=== PATIENT | male | born 1950 | race Caucasian/White ===

== ENCOUNTER → 2016-07-01 | Outpatient (CLI) | payer OTHER ==
--- NOTE | 2016-07-01 12:00 | XR ---
EXAMINATION TYPE: XR chest 2V DATE OF EXAM: 07/01/2016 11:50 AM COMPARISON: 01/13/2015 HISTORY: Shortness of breath FINDINGS: The lungs are clear and there is no pneumothorax, pleural effusion, or focal pneumonia. Degenerative changes spine noted with evidence of cardiomegaly. Cardiac device seen in there is apical pleural th ickening. Hyperinflation suggests COPD. IMPRESSION: 1. No acute process. 2. Cardiomegaly and COPD
== END | disposition home or self-care (01) ==
LOC: RADXRMAIN 11:17
PROVIDERS: ATTEND Internal Medicine
DX: J44.9 Chronic obstructive pulmonary disease, unspecified (principal); I51.7 Cardiomegaly
CPT/HCPCS: 71020

== ENCOUNTER → 2017-01-06 | Outpatient (CLI) | payer OTHER ==
[2017-01-06 07:12] LABS: Blood Urea Nitrogen 19 mg/dL (9-20); Non-African American GFR(MDRD) >60 (>60 ml/min/1.73 sqM)
--- NOTE | 2017-01-06 08:36 | CT ---
EXAMINATION TYPE: CT brain wo/w con DATE OF EXAM: 01/06/2017 COMPARISON: 07/03/2009 HISTORY: 66-year-old male chronic tension headache, non intractable TECHNIQUE: Examination was done in axial plane before and after administration of 100 mm Omnipaque 3 00 intravenous contrast. Coronal and sagittal reconstructions performed. CT DLP: 2792.76 mGycm Automated exposure control for dose reduction was used. FINDINGS: Mild calvarial streak and beam hardening artifacts. Within this limitation, there is no evidence of acute intracranial hemorrhage, acute ischemic changes, mass, mass-effect, or extra-axial fluid collec tion. There is no effacement of cerebral sulci or basal subarachnoid cisterns. There is no hydrocep halus. There is no midline shift. Torres-white matter distinction is preserved. Small punctate calcification in the region of the foramen of [place]rose could represent choroid plexus ca lcification and is stable from 07/03/2009. Partially empty sella. No abnormal intracranial enhancing lesions. The dural venous sinuses are patent. Prior sinus with medial maxillary antrectomies. Mild mucosal thickening within the right maxillary si nus and a small polyp/mucosal retention cyst along the floor of the left maxillary sinus. Mild mucosa l thickening left frontal sinus. Globes are intact. IMPRESSION: 1. No acute intracranial abnormality seen. 2. No abnormal intracranial enhancing lesions.
== END | disposition home or self-care (01) ==
LOC: RADCTMAIN 06:35
PROVIDERS: ATTEND Psychiatry & Neurology Neurology
DX: G44.229 Chronic tension-type headache, not intractable (principal); Z13.89 Encounter for screening for other disorder
CPT/HCPCS: 82565; 84520; 70470; Q9967

== ENCOUNTER 2017-03-05 23:29 | Emergency (ER) | payer OTHER ==
[2017-03-05] MEDS ORDERED: MORPHINE SULFATE 4 MG/ML SYRINGE IV STA (23:59)
[2017-03-05] MEDS ORDERED: RX INFO: IV CONTRAST WAS GIVEN 1 EACH MISC MISCELLANE PRN (23:59)
[2017-03-05] MEDS ORDERED: ONDANSETRON 4 MG/2 ML VIAL IVP STA (23:59)
[2017-03-05] MEDS ORDERED: SODIUM CHLORIDE 0.9% 1,000 ML IV STA (23:59)
[2017-03-05] MEDS ORDERED: SODIUM CHLORIDE 0.9% 2,000 ML IV STA (23:59)
--- NOTE | 2017-03-06 00:08 | ED ---
Abdominal Pain HPI - General Chief Complaint: Abdominal Pain Stated Complaint: Abdominal Pain Time Seen by Provider: 03/05/17 23:48 Source: patient, RN notes reviewed, old records reviewed Mode of arrival: wheelchair Limitations: no limitations - History of Present Illness Initial Comments: This is a 66-year-old male presents to emergency Department chief complaint of increased abdominal pain for the past week, patient reports mostly on the left side and occasionally will radiate towards his back. Patient reports seems to be across his entire abdomen. Patient states that he has a history of diverticulitis and feels like this may be similar. He reports that he is had no nausea or vomiting. He reports that over the past few days he's had a hard stools. Patient states that he has had chills and low-grade fever but nothing at this time. He has history of pacemaker. Denies any chest pain or shortness of breath. Surgical history includes appendectomy and cholecystectomy, bilateral hip arthroplasty. Patient denies any recent fever, chills, shortness of breath, chest pain, back pain, nausea vomiting, numbness or tingling, dysuria or hematuria, diarrhea, headaches or visual changes, or any other current symptoms - Related Data Home Medications Medication Instructions Recorded Confirmed Aspirin 81 mg PO DAILY 07/25/14 03/05/17 Citalopram Hydrobromide [CeleXA] 40 mg PO DAILY 07/25/14 03/05/17 Losartan [Cozaar] 50 mg PO BID 07/25/14 03/05/17 Fiber 3 tab-cap PO BID 01/16/15 03/05/17 Diltiazem Cd [Cardizem Cd] 240 mg PO BID 03/20/15 03/05/17 Previous Rx's Medication Instructions Recorded HYDROcodone/APAP 7.5-325MG [[place] 1 - 2 each PO Q6H PRN #90 tab 03/29/15 7.5-325] HYDROcodone/APAP 10-325MG [[place] 1 tab PO Q6H PRN #15 tab 03/06/17 10-325] Ondansetron Odt [Zofran Odt] 4 mg PO Q8HR PRN #15 tab 03/06/17 Allergies Allergy/AdvReac Type Severity Reaction Status Date / Time nickel Allergy Rash/Hives Verified 03/20/15 13:17 Review of Systems ROS Statement: Those systems with pertinent positive or pertinent negative responses have been documented in the HPI. ROS Other: All systems not noted in ROS Statement are negative. Past Medical History Past Medical History: Chest Pain / Angina, Hypertension, Osteoarthritis (OA), Prostate Disorder Additional Past Medical History / Comment(s): hypoglycemia (caused a seizure), BPH, PACEMAKER, KIDNEY STONES. History of Any Multi-Drug Resistant Organisms: None Reported Past Surgical History: Appendectomy, Cholecystectomy, Heart Catheterization, Joint Replacement, Pacemaker Additional Past Surgical History / Comment(s): rt hip replacement, KIDNEY STONES , 03-27-15 TOTAL LEFT HIP REPLACEMENT, colonoscopy few years ago that showed colonic polyps. Past Anesthesia/Blood Transfusion Reactions: No Reported Reaction Type of Cardiac Device: Permanent Pacemaker Device Placement Date:: 2013 Past Psychological History: Depression Smoking Status: Never smoker Past Alcohol Use History: Rare Past Drug Use History: Marijuana - Past Family History Sister(s) Family Medical History: Cancer (Patient has 2 sisters one of them had lymphoma) Additional Family Medical History / Comment(s): lymph nodes Mother Family Medical History: COPD, Hypertension (His mother is alive she is 85-year- old has history of hypertension COPD secondary to secondhand smoking.) Father Family Medical History: COPD (Father at age 78 from COPD as well as alcoholism) Brother(s) Family Medical History: No Reported History (Patient has 2 brothers no major medical problems) Daughter(s) Family Medical History: No Reported History (Patient has 2 daughters no major medical problems) Son(s) Family Medical History: No Reported History (Patient has one son no major medical problems) General Exam - General Exam Comments Initial Comments: Pleasant 66-year-old male. No distress. Limitations: no limitations General appearance: alert, in no apparent distress Head exam: Present: atraumatic, normocephalic, normal inspection Eye exam: Present: normal appearance, PERRL, EOMI. Absent: scleral icterus, conjunctival injection, periorbital swelling ENT exam: Present: normal exam, mucous membranes moist Neck exam: Present: normal inspection. Absent: tenderness, meningismus, lymphadenopathy Respiratory exam: Present: normal lung sounds bilaterally. Absent: respiratory distress, wheezes, rales, rhonchi, stridor Cardiovascular Exam: Present: regular rate, normal rhythm, normal heart sounds. Absent: systolic murmur, diastolic murmur, rubs, gallop, clicks GI/Abdominal exam: Present: tenderness (left upper quadrant tenderness.), normal bowel sounds. Absent: distended, guarding, rebound, rigid Extremities exam: Present: normal inspection, full ROM, normal capillary refill. Absent: tenderness, pedal edema, joint swelling, calf tenderness Back exam: Present: normal inspection Neurological exam: Present: alert, oriented X3, CN II-XII intact Psychiatric exam: Present: normal affect, normal mood Skin exam: Present: warm, dry, intact, normal color. Absent: rash Course Vital Signs 03/05/17 03/06/17 03/06/17 23:33 00:49 01:56 Temperature 98.8 F Pulse Rate 50 L 48 L 45 L Respiratory 18 22 18 Rate Blood Pressure 180/79 163/83 175/80 O2 Sat by Pulse 100 100 98 Oximetry 03/06/17 03:12 Temperature 98.1 F Pulse Rate 46 L Respiratory 18 Rate Blood Pressure 192/82 O2 Sat by Pulse 96 Oximetry Medical Decision Making - Medical Decision Making 66-year-old male presents emergency department with one week of increased abdominal pain mainly over the left side. Patient reports that occasionally will radiate towards his back. At this time patient's lab work was reviewed and showed elevated lipase of 1030. Amylase was slightly elevated at 300. Stat patient's labwork was reviewed and negative for any significant abnormalities. Patient was given IV fluids and pain medicine. CT abdomen and pelvis was performed which shows some fatty infiltration around the pancreatic head. Also some incidental findings of hepatic cysts and slightly enlarged bilateral kidneys. Patient was informed of these results. Patient reports that he does not drink alcohol, and surgical history does include cholecystectomy. Patient was offered admission for pancreatitis, low for IV hydration and pain management. Patient reports that he would like to manage this at home. Discussed that he would need to have nausea medicine and pain medicine and clear liquid diet for the next few days. Patient reports that he feels anything gets worse he will return to the emergency department for further evaluation. Discussed close follow-up with primary care provider within the next few days. Patient agrees to treatment plan will comply. Return parameters were discussed. - Lab Data Result diagrams: 03/06/17 00:47 03/06/17 00:47 Lab Results 03/06/17 03/06/17 03/06/17 Range/Units 00:17 00:47 00:47 WBC 10.6 (3.8-10.6) k/uL RBC 4.33 (4.30-5.90) m/uL Hgb 13.7 (13.0-17.5) gm/dL Hct 41.0 (39.0-53.0) % MCV 94.8 (80.0-100.0) fL MCH 31.7 (25.0-35.0) pg MCHC 33.5 (31.0-37.0) g/dL RDW 12.5 (11.5-15.5) % Plt Count 298 (150-450) k/uL Neutrophils % 73 % Lymphocytes % 15 % Monocytes % 8 % Eosinophils % 2 % Basophils % 1 % Neutrophils # 7.7 (1.3-7.7) k/uL Lymphocytes # 1.5 (1.0-4.8) k/uL Monocytes # 0.9 (0-1.0) k/uL Eosinophils # 0.2 (0-0.7) k/uL Basophils # 0.1 (0-0.2) k/uL PT (9.0-12.0) sec INR (<1.2) APTT (22.0-30.0) sec Sodium 140 (137-145) mmol/L Potassium 4.1 (3.5-5.1) mmol/L Chloride 104 (98-107) mmol/L Carbon Dioxide 26 (22-30) mmol/L Anion Gap 10 mmol/L BUN 24 H (9-20) mg/dL Creatinine 0.80 (0.66-1.25) mg/dL Est GFR (MDRD) Af Amer >60 (>60 ml/min/1.73 sqM) Est GFR (MDRD) Non-Af >60 (>60 ml/min/1.73 sqM) Glucose 128 H (74-99) mg/dL Plasma Lactic Acid Donaldo (0.7-2.0) mmol/L Calcium 9.7 (8.4-10.2) mg/dL Total Bilirubin 0.5 (0.2-1.3) mg/dL AST 25 (17-59) U/L ALT 36 (21-72) U/L Alkaline Phosphatase 76 (38-126) U/L Total Protein 7.1 (6.3-8.2) g/dL Albumin 4.1 (3.5-5.0) g/dL Amylase 118 H (30-110) U/L Lipase 1093 H (23-300) U/L Urine Color Yellow Urine Appearance Clear (Clear) Urine pH 5.0 (5.0-8.0) Ur Specific [place] 1.021 (1.001-1.035) Urine Protein Negative (Negative) Urine Glucose (UA) Negative (Negative) Urine Ketones Negative (Negative) Urine Blood Negative (Negative) Urine Nitrite Negative (Negative) Urine Bilirubin Negative (Negative) Urine Urobilinogen <2.0 (<2.0) mg/dL Ur Leukocyte Esterase Negative (Negative) 03/06/17 03/06/17 Range/Units 00:47 00:47 WBC (3.8-10.6) k/uL RBC (4.30-5.90) m/uL Hgb (13.0-17.5) gm/dL Hct (39.0-53.0) % MCV (80.0-100.0) fL MCH (25.0-35.0) pg MCHC (31.0-37.0) g/dL RDW (11.5-15.5) % Plt Count (150-450) k/uL Neutrophils % % Lymphocytes % % Monocytes % % Eosinophils % % Basophils % % Neutrophils # (1.3-7.7) k/uL Lymphocytes # (1.0-4.8) k/uL Monocytes # (0-1.0) k/uL Eosinophils # (0-0.7) k/uL Basophils # (0-0.2) k/uL PT 11.0 (9.0-12.0) sec INR 1.1 (<1.2) APTT 23.8 (22.0-30.0) sec Sodium (137-145) mmol/L Potassium (3.5-5.1) mmol/L Chloride (98-107) mmol/L Carbon Dioxide (22-30) mmol/L Anion Gap mmol/L BUN (9-20) mg/dL Creatinine (0.66-1.25) mg/dL Est GFR (MDRD) Af Amer (>60 ml/min/1.73 sqM) Est GFR (MDRD) Non-Af (>60 ml/min/1.73 sqM) Glucose (74-99) mg/dL Plasma Lactic Acid Donaldo 1.6 (0.7-2.0) mmol/L Calcium (8.4-10.2) mg/dL Total Bilirubin (0.2-1.3) mg/dL AST (17-59) U/L ALT (21-72) U/L Alkaline Phosphatase (38-126) U/L Total Protein (6.3-8.2) g/dL Albumin (3.5-5.0) g/dL Amylase (30-110) U/L Lipase (23-300) U/L Urine Color Urine Appearance (Clear) Urine pH (5.0-8.0) Ur Specific [place] (1.001-1.035) Urine Protein (Negative) Urine Glucose (UA) (Negative) Urine Ketones (Negative) Urine Blood (Negative) Urine Nitrite (Negative) Urine Bilirubin (Negative) Urine Urobilinogen (<2.0) mg/dL Ur Leukocyte Esterase (Negative) - Radiology Data Radiology results: report reviewed Subtle. Pancreatic fat infiltration center around the pancreatic head correlating for acute pancreatitis. No significant necrosis or hemorrhage. Multiple hepatic hypodensities too small to characterize that are possibly represent cysts similar to prior study. Nodular significant adrenal gland seen bilaterally measuring 2 cm on the right recent metabolic. Overall there appears to be subtle increased fullness. Disposition Clinical Impression: Pancreatitis Disposition: HOME SELF-CARE Condition: Good Instructions: Pancreatitis (ED) Additional Instructions: Patient advised to take pain medicine and nausea medicine as prescribed. Follow -up with primary care provider within the next 1-2 days. Clear liquid diet for the next 24-48 hours, and slowly increasing her diet afterwards. Patient should return to the emergency department if any alarming signs or symptoms occur. Prescriptions: HYDROcodone/APAP 10-325MG [[place] 10-325] 1 tab PO Q6H PRN #15 tab PRN Reason: Pain Ondansetron Odt [Zofran Odt] 4 mg PO Q8HR PRN #15 tab PRN Reason: Nausea Referrals: Justice Nair MD [Primary Care Provider] - 1-2 days Time of Disposition: 02:41
[2017-03-06] MEDS ORDERED: MORPHINE SULFATE 2 MG/ML SYRINGE IVP ONE ×2 (00:15→00:16)
[2017-03-06 01:05] LABS: Appearance,Urine Clear (Clear); Bilirubin,Urine Negative (Negative); Glucose,Urine (UA) Negative (Negative); Ketones,Urine Negative (Negative); Leukocyte Esterase,Urine Negative (Negative); Nitrite,Urine Negative (Negative); Protein,Urine Negative (Negative); Specific Gravity,Urine 1.021 (1.001-1.035); UA Billing (MACRO vs. MICRO) CHEM; Urobilinogen,Urine <2.0 mg/dL (<2.0)
[2017-03-06 01:09] LABS: Basophils # (A) 0.1 k/uL (0-0.2); Basophils % (A) 1 %; CH 31.6; CHCM 33.5; Eosinophils # (A) 0.2 k/uL (0-0.7); Eosinophils % (A) 2 %; HDW 2.36; HGB 13.7 gm/dL (13.0-17.5); Luc # (Auto) 0.15; Luc % (Auto) 1; Lymphocytes # (A) 1.5 k/uL (1.0-4.8); Lymphocytes % (A) 15 %; MCH 31.7 pg (25.0-35.0); MCHC 33.5 g/dL (31.0-37.0); MCV 94.8 fL (80.0-100.0); Mean Platelet Volume 6.7; Monocytes # (A) 0.9 k/uL (0-1.0); Monocytes % (A) 8 %; Neutrophils # (A) 7.7 k/uL (1.3-7.7); Neutrophils % (A) 73 %; RBC 4.33 m/uL (4.30-5.90); RDW 12.5 % (11.5-15.5); WBC 10.6 k/uL (3.8-10.6); WBC (Perox) 10.51
[2017-03-06 01:20] LABS: INR 1.1 (<1.2); Partial Thromboplastin Time 23.8 sec (22.0-30.0)
[2017-03-06 01:23] LABS: ALT 36 U/L (21-72); AST 25 U/L (17-59); Alkaline Phosphatase 76 U/L (38-126); Amylase 118 U/L (30-110); Anion Gap 10 mmol/L; Blood Urea Nitrogen 24 mg/dL (9-20); Calcium 9.7 mg/dL (8.4-10.2); Carbon Dioxide 26 mmol/L (22-30); Chloride 104 mmol/L (98-107); Glucose 128 mg/dL (74-99); Non-African American GFR(MDRD) >60 (>60 ml/min/1.73 sqM); Potassium 4.1 mmol/L (3.5-5.1); Sodium 140 mmol/L (137-145); Total Bilirubin 0.5 mg/dL (0.2-1.3); Total Protein 7.1 g/dL (6.3-8.2)
[2017-03-06] MEDS ORDERED: HYDROmorphone 1 MG/ML 1 ML SYRINGE IVP STA ×2 (01:36→02:42)
[2017-03-06 01:59] VITALS: RESP 18
--- NOTE | 2017-03-06 02:18 | CT ---
EXAM: CT Abdomen and Pelvis With Intravenous Contrast CLINICAL HISTORY: Reason: abdominal pain TECHNIQUE: Axial computed tomography images of the abdomen and pelvis with intravenous contrast. CTDI is 22 mGy and DLP is 1169 mGy-cm. Axial delayed images were obtained. CTDI is 23.1 mGy and DLP is 618 mGy-cm. This CT exam was performed using one or more of the following dose reduction techniques: automated exposure control, adjustment of the mA and/or kV according to patient size, and/or use of iterative reconstruction technique. Coronal and sagittal reformatted images were created and reviewed. COMPARISON: CT 01/03/15 FINDINGS: Lower thorax: No acute findings. Pacing wires are seen. ABDOMEN: Liver: Multiple hepatic hypodensities, too small to characterize but possibly represent cysts similar to the prior study. Gallbladder and bile ducts: Cholecystectomy. No ductal dilation. Pancreas: Subtle peripancreatic fat infiltration centered around the pancreatic head, correlate for acute pancreatitis. No significant necrosis or hemorrhage. No ductal dilation. Spleen: Unremarkable. No splenomegaly. Adrenals: Nodular thickened adrenal glands seen bilaterally measuring up to 2 cm on the right and 3.7 cm on the left. Overall, there appears to be subtle increased fullness. Kidneys and ureters: Unremarkable. No solid mass. No hydronephrosis. Stomach and bowel: Unremarkable. No obstruction. No mucosal thickening. Appendix: The appendix is not well-visualized but no findings suggest acute appendicitis. PELVIS: Bladder: Unremarkable. No mass. Reproductive: Unremarkable as visualized. ABDOMEN and PELVIS: Intraperitoneal space: Unremarkable. No free air. No significant fluid collection. Bones/joints: Bilateral hip arthroplasties. Mild multilevel degenerative changes of the spine. No acute fracture. No dislocation. Soft tissues: Unremarkable. Vasculature: Unremarkable. No abdominal aortic aneurysm. Lymph nodes: Unremarkable. No enlarged lymph nodes. IMPRESSION: 1. Subtle peripancreatic fat infiltration centered around the pancreatic head, correlate for acute pancreatitis. No significant necrosis or hemorrhage. 2. Multiple hepatic hypodensities, too small to characterize but possibly represent cysts similar to the prior study. 3. Nodular thickened adrenal glands seen bilaterally measuring up to 2 cm on the right and 3.7 cm on the left. Overall, there appears to be subtle increased fullness.
[2017-03-06] MEDS ORDERED: ACET/COD 300 MG/30 MG STARTER PACK 6 TAB BTL PO STA (02:42)
[2017-03-06] MEDS ORDERED: ONDANSETRON 4 MG ODT STARTER PACK 2 TAB BTL PO STA (02:42)
[2017-03-06 03:15] VITALS: BP 192/82; PULSE 46; TEMP 98.1
== END 2017-03-06 03:20 | disposition home or self-care (01) ==
LOC: EC 23:29
DX: K85.90 Acute pancreatitis without necrosis or infection, unspecified (principal); F32.9 Major depressive disorder, single episode, unspecified; I10 Essential (primary) hypertension; M19.90 Unspecified osteoarthritis, unspecified site; Z90.49 Acquired absence of other specified parts of digestive tract; Z53.8 Procedure and treatment not carried out for other reasons; Z87.442 Personal history of urinary calculi; Z91.048 Other nonmedicinal substance allergy status; Z79.82 Long term (current) use of aspirin; Z79.899 Other long term (current) drug therapy
CPT/HCPCS: 99285 ×2; 96374 ×2; 96376 ×2; 96375 ×3; 96361 ×3; 36415; 80053; 82150; 83605; 83690; 85025; 85610; 85730; 81003; 87040; 74177; Q9967; J2405; J2270; J1170; S0119

== ENCOUNTER → 2017-08-11 | Outpatient (CLI) | payer OTHER ==
--- NOTE | 2017-08-11 12:27 | XR ---
EXAMINATION TYPE: XR chest 2V DATE OF EXAM: 08/11/2017 COMPARISON: 07/01/2016 TECHNIQUE: PA and lateral views submitted. HISTORY: Cough FINDINGS: The lungs are clear and there is no pneumothorax, pleural effusion, or focal pneumonia. There is a cardiac device. Biapical pleural thickening. No overt failure. Hypertrophic and degenerative change o f the spine. IMPRESSION: 1. No acute process.
== END | disposition home or self-care (01) ==
LOC: RADXRMAIN 11:33
PROVIDERS: ATTEND Internal Medicine
DX: R05 Cough (principal)
CPT/HCPCS: 71046

== ENCOUNTER → 2018-07-24 | Outpatient (CLI) | payer BC ==
[2018-07-24 13:15] LABS: Blood Urea Nitrogen 20 mg/dL (9-20)
--- NOTE | 2018-07-24 15:13 | CT ---
EXAMINATION TYPE: CT abdomen pelvis w con DATE OF EXAM: 07/24/2018 COMPARISON: CT abdomen pelvis March 06, [address] HISTORY: Abdominal pain with vomiting CT DLP: 1997.3 mGycm, Automated Exposure Control for Dose Reduction was Utilized. CONTRAST: CT scan of the abdomen and pelvis is performed with oral and with IV Contrast, patient injected with 100 mL of Isovue 300. FINDINGS: LUNG BASES: Partial visualization of right-sided pacemaker wires is redemonstrated. LIVER/GB: Liver remains heterogeneously hypodense consistent with diffuse fatty infiltration. Some sc attered low dense lesions throughout the liver anteriorly remain present too small to further charact erize but presumed benign. Cholecystectomy clips are redemonstrated. PANCREAS: Pancreatic head and uncinate process show no significant surrounding fat stranding or fluid on current study. SPLEEN: No significant abnormality is seen. ADRENALS: Stable low dense nodularity bilateral adrenal glands consistent with benign lipid rich juan c omas. KIDNEYS: No significant abnormality is seen. BOWEL: Oral contrast reaches level proximal sigmoid colon. There is no suspicious small or large luana l dilatation. PROSTATE/SEMINAL VESICLES: Suboptimal evaluation due to bilateral hip arthroplasty LYMPH NODES: No greater than 1cm abdominal or pelvic lymph nodes are appreciated. OSSEOUS STRUCTURES: Metallic hardware from bilateral hip arthroplasties causes streak artifact limiti ng evaluation of pelvic structures. OTHER: Suspect small amount of free fluid right pelvis axial image 74 of uncertain etiology. IMPRESSION: Small focus of free fluid right pelvis uncertain etiology. No bowel obstruction. No signi ficant new finding otherwise seen from prior CT.
== END ==
LOC: RADCTMAIN 12:21
PROVIDERS: ATTEND Internal Medicine
DX: R93.5 Abnormal findings on diagnostic imaging of other abdominal regions, including retroperitoneum (principal)
CPT/HCPCS: 82565; 84520; 74177; 36415; Q9967

== ENCOUNTER → 2018-08-16 | Outpatient (CLI) | payer BC ==
[2018-08-16 17:25] LABS: Blood Urea Nitrogen 25 mg/dL (9-20)
--- NOTE | 2018-08-17 08:12 | CT ---
EXAMINATION TYPE: CT soft tissue neck w con DATE OF EXAM: None COMPARISON: July 03, 2009 HISTORY: Right side swelling/mass of neck/face. BB placed on region of interest. CT DLP: 795 mGycm CONTRAST: CT scan of the neck is performed with IV Contrast, patient injected with 100ml mL of Isovue 300. Contrast enhanced CT of the neck was performed from the skull base through the lung apices. BBs is pl aced at the site of clinical concern. AIRWAY: The supraglottic, glottic, and subglottic portions of the airway appear patent and free of mass. SALIVARY GLANDS: Arising from or directly adjacent to the superficial lobe of the right parotid glan d is a solid mass measuring 1.7 x 1.8 x 1.5 cm. No additional right parotid lesion is identified. Lef t parotid gland is free of solid or cystic mass. The submandibular glands are free of mass or inflamm atory process. THYROID GLAND: No nodules or masses seen. LYMPH NODES: No adenopathy seen greater than 1cm. LUNG APICES: No nodule or mass is seen. OTHER: Vascular structures are patent. No significant degenerative change of the cervical spine. N o abscess seen. Chronic sinusitis noted. IMPRESSION: 1.Arising from or directly adjacent to the superficial lobe of the right parotid gland is a solid mas s measuring 1.7 x 1.8 x 1.5 cm. Tissue diagnosis recommended to exclude malignancy.
== END ==
LOC: RADCTMAIN 16:23
PROVIDERS: ATTEND Otolaryngology
DX: R22.1 Localized swelling, mass and lump, neck (principal)
CPT/HCPCS: 82565; 84520; 70491; 36415; Q9967

== ENCOUNTER 2018-10-11 15:09 | Inpatient (IN) | payer BC, MEDICARE ==
[2018-10-11] MEDS ORDERED: SODIUM CHLORIDE 0.9% 1,000 ML IV STA (16:01)
[2018-10-11] MEDS ORDERED: MORPHINE SULFATE 4 MG/ML SYRINGE IV STA (16:01)
[2018-10-11 16:17] LABS: Basophils # (A) 0.1 k/uL (0-0.2); Basophils % (A) 0 %; Eosinophils # (A) 0.2 k/uL (0-0.7); Eosinophils % (A) 2 %; HCT 41.7 % (39.0-53.0); HGB 13.7 gm/dL (13.0-17.5); Lymphocytes # (A) 1.9 k/uL (1.0-4.8); Lymphocytes % (A) 16 %; MCH 29.7 pg (25.0-35.0); MCHC 32.9 g/dL (31.0-37.0); MCV 90.4 fL (80.0-100.0); Mean Platelet Volume 6.3; Monocytes # (A) 0.9 k/uL (0-1.0); Monocytes % (A) 7 %; Neutrophils # (A) 8.7 k/uL (1.3-7.7); Neutrophils % (A) 73 %; Platelet Count 329 k/uL (150-450); RBC 4.61 m/uL (4.30-5.90); RDW 13.2 % (11.5-15.5)
[2018-10-11 16:25] LABS: ALT 18 U/L (21-72); AST 32 U/L (17-59); Albumin 4.3 g/dL (3.5-5.0); Alkaline Phosphatase 69 U/L (38-126); Anion Gap 7 mmol/L; Blood Urea Nitrogen 23 mg/dL (9-20); Calcium 9.7 mg/dL (8.4-10.2); Carbon Dioxide 26 mmol/L (22-30); Chloride 108 mmol/L (98-107); Glucose 103 mg/dL (74-99); Potassium 4.3 mmol/L (3.5-5.1); Sodium 141 mmol/L (137-145); Total Bilirubin 0.5 mg/dL (0.2-1.3); Total Protein 7.3 g/dL (6.3-8.2)
[2018-10-11] MEDS ORDERED: hydrALAZINE HCL 20 MG/ML 1 ML VIAL IVP STA (16:52)
--- NOTE | 2018-10-11 16:59 | ED ---
Abdominal Pain HPI - General Chief Complaint: Abdominal Pain Stated Complaint: abdominal pain Time Seen by Provider: 10/11/18 15:45 Source: patient Mode of arrival: wheelchair Limitations: no limitations - History of Present Illness Initial Comments: 67-year-old male past medical history of diverticulitis, chronic abdominal pain, hypertension present today for chief complaint of abdominal pain. She states he's had daily abdominal pain and episodes for the past 2 years he states he has had extensive outpatient testing in including multiple abdominal CTs which have revealed no acute abnormalities. He states they're not sure what has been going on. He states he has had history of diverticulitis. He denies history of kidney stones. Patient states the pain is localized to the anterior abdomen he denies it being one side over the other he states is diffuse he states he feels that the muscles tensing up. He states this happens multiple times a day however today the episodes seem to last longer. Patient states it did begin after eating sliders. Patient denies any history of aortic aneurysm. Patient denies any nausea vomiting chest pain shortness of breath he denies any leg swelling. He denies any new back pain fever chills night sweats dysuria urgency frequency or hematuria. Remaining review of system negative. Upon arrival patient appears uncomfortable. BP elevated. Pt states he did take him home medications for BP today. - Related Data Home Medications Medication Instructions Recorded Confirmed Citalopram Hydrobromide [CeleXA] 40 mg PO DAILY 07/25/14 10/11/18 Diltiazem Cd [Cardizem Cd] 240 mg PO DAILY 03/20/15 10/11/18 Ergocalciferol (Vitamin D2) 50,000 units PO FR 04/28/17 10/11/18 [Vitamin D2] Finasteride [Proscar] 5 mg PO DAILY 04/28/17 10/11/18 HYDROcodone/APAP 7.5-325MG [[place] 1 tab PO BID 10/11/18 10/11/18 7.5-325] Hyoscyamine Sulfate [Levsin-Sl] 0.125 mg SL QID 10/11/18 10/11/18 Losartan Potassium 100 mg PO DAILY 10/11/18 10/11/18 Pantoprazole Sodium [Protonix] 40 mg PO AC-BID 10/11/18 10/11/18 Allergies Allergy/AdvReac Type Severity Reaction Status Date / Time nickel Allergy Rash/Hives Verified 10/11/18 16:40 Review of Systems ROS Statement: Those systems with pertinent positive or pertinent negative responses have been documented in the HPI. ROS Other: All systems not noted in ROS Statement are negative. Past Medical History Past Medical History: Chest Pain / Angina, GERD/Reflux, Hypertension, Osteoarthritis (OA), Prostate Disorder Additional Past Medical History / Comment(s): hypoglycemia (caused a seizure), BPH, PACEMAKER, KIDNEY STONES. History of Any Multi-Drug Resistant Organisms: None Reported Past Surgical History: Appendectomy, Cholecystectomy, Heart Catheterization, Joint Replacement, Pacemaker Additional Past Surgical History / Comment(s): rt hip replacement, KIDNEY STONES, 03-27-15 TOTAL LEFT HIP REPLACEMENT, colonoscopy few years ago that showed colonic polyps. Past Anesthesia/Blood Transfusion Reactions: No Reported Reaction Type of Cardiac Device: Permanent Pacemaker Device Placement Date:: 2013 Past Psychological History: Depression Smoking Status: Never smoker Past Alcohol Use History: Occasional Past Drug Use History: Marijuana - Past Family History Sister(s) Family Medical History: Cancer Additional Family Medical History / Comment(s): lymph nodes Mother Family Medical History: COPD, Hypertension Father Family Medical History: COPD Brother(s) Family Medical History: No Reported History Daughter(s) Family Medical History: No Reported History Son(s) Family Medical History: No Reported History General Exam - General Exam Comments Initial Comments: General: The patient is awake and alert Eye: +3 mm pupils are equal, round and reactive to light, extra-ocular movements are intact. No nystagmus. There is normal conjunctiva bilaterally. No signs of icterus. Ears, nose, mouth and throat: There are moist mucous membranes and no oral lesions. Neck: The neck is supple, there is no tenderness or JVD. Cardiovascular: There is a regular rate and rhythm. No murmur, rub or gallop is appreciated. Respiratory: Lungs are clear to auscultation, respirations are non-labored, breath sounds are equal. No wheezes, stridor, rales, or rhonchi. Gastrointestinal: Soft, non-distended, diffusely tender abdomen without masses or organomegaly noted. There is no rebound or guarding present. No CVA tenderness. Bowel sounds are unremarkable. No pulsatile masses or bruising. Musculoskeletal: Normal ROM, no tenderness. Strength 5/5. Sensation intact. PRadial and DP pulses equal bilaterally 2+. Neurological: A&O x 3. CN II-XII intact, There are no obvious motor or sensory deficits. Coordination appears grossly intact. Speech is normal. Skin: Skin is warm and dry and no rashes or lesions are noted. Psychiatric: Cooperative, appropriate mood & affect, normal judgment. Limitations: no limitations Course Vital Signs 10/11/18 10/11/18 10/11/18 15:28 16:40 17:00 Temperature 98.1 F Pulse Rate 50 L 52 L 52 L Respiratory 18 22 24 Rate Blood Pressure 198/146 198/133 211/98 O2 Sat by Pulse 98 99 99 Oximetry Medical Decision Making - Medical Decision Making The 7-year-old male presents today for chief complaint of abdominal pain. Patient states it began after eating. Patient states is severe cramping mid abdomen. He is diffusely tender on examination. Patient's amylase is 797. Lipase greater than 11,000. Pt has normal calcium and HCT levels. She'll be given medication for pain control as I feel this is the reason for patient's elevated blood pressure. Patient was provided blood pressure medication given the extent of hypertension. Patient ordered nothing by mouth given IV hydration. Pt will be admitted to Dr. Nair. I woke with attending provider Dr. Tesfaye who is agreeable to plan admission at this time. GI on consult. - Lab Data Result diagrams: 10/11/18 16:05 10/11/18 16:05 Lab Results 10/11/18 10/11/18 10/11/18 Range/Units 16:05 16:05 17:15 WBC 12.0 H (3.8-10.6) k/uL RBC 4.61 (4.30-5.90) m/uL Hgb 13.7 (13.0-17.5) gm/dL Hct 41.7 (39.0-53.0) % MCV 90.4 (80.0-100.0) fL MCH 29.7 (25.0-35.0) pg MCHC 32.9 (31.0-37.0) g/dL RDW 13.2 (11.5-15.5) % Plt Count 329 (150-450) k/uL Neutrophils % 73 % Lymphocytes % 16 % Monocytes % 7 % Eosinophils % 2 % Basophils % 0 % Neutrophils # 8.7 H (1.3-7.7) k/uL Lymphocytes # 1.9 (1.0-4.8) k/uL Monocytes # 0.9 (0-1.0) k/uL Eosinophils # 0.2 (0-0.7) k/uL Basophils # 0.1 (0-0.2) k/uL Sodium 141 (137-145) mmol/L Potassium 4.3 (3.5-5.1) mmol/L Chloride 108 H (98-107) mmol/L Carbon Dioxide 26 (22-30) mmol/L Anion Gap 7 mmol/L BUN 23 H (9-20) mg/dL Creatinine 0.67 (0.66-1.25) mg/dL Est GFR (CKD-EPI)AfAm >90 (>60 ml/min/1.73 sqM) Est GFR (CKD-EPI)NonAf >90 (>60 ml/min/1.73 sqM) Glucose 103 H (74-99) mg/dL Calcium 9.7 (8.4-10.2) mg/dL Total Bilirubin 0.5 (0.2-1.3) mg/dL AST 32 (17-59) U/L ALT 18 L (21-72) U/L Alkaline Phosphatase 69 (38-126) U/L Total Protein 7.3 (6.3-8.2) g/dL Albumin 4.3 (3.5-5.0) g/dL Amylase 779 H* (30-110) U/L Lipase 24259 H (23-300) U/L Urine Color Yellow Urine Appearance Clear (Clear) Urine pH 7.5 (5.0-8.0) Ur Specific [place] 1.027 (1.001-1.035) Urine Protein Trace H (Negative) Urine Glucose (UA) Negative (Negative) Urine Ketones Negative (Negative) Urine Blood Negative (Negative) Urine Nitrite Negative (Negative) Urine Bilirubin Negative (Negative) Urine Urobilinogen <2.0 (<2.0) mg/dL Ur Leukocyte Esterase Negative (Negative) Disposition Clinical Impression: Pancreatitis, Abdominal pain, Elevated blood pressure reading Disposition: ADMITTED IP TO THIS [facility] Condition: Stable Is patient prescribed a controlled substance at d/c from ED?: No Referrals: Justice Nair MD [Primary Care Provider] - 1-2 days Time of Disposition: 17:39 Decision to Admit Reason: Admit from EC Decision Date: 10/11/18 Decision Time: 17:40
[2018-10-11] MEDS ORDERED: HYDROmorphone 0.5 MG/0.5 ML SYRINGE IVP STA (17:26)
[2018-10-11] MEDS ORDERED: SODIUM CHLORIDE 0.9% 1,000 ML IV ONE (17:31)
[2018-10-11 17:32] LABS: Amylase 779 U/L (30-110)
[2018-10-11 17:33] LABS: Lipase 11318 U/L (23-300)
[2018-10-11] MEDS ORDERED: ONDANSETRON 4 MG/2 ML VIAL IVP PRN (17:37)
[2018-10-11] MEDS ORDERED: NALOXONE 0.4 MG/ML 1 ML VIAL IV PRN (17:37)
[2018-10-11 17:38] LABS: Appearance,Urine Clear (Clear); Bilirubin,Urine Negative (Negative); Blood,Urine Negative (Negative); Color,Urine Yellow; Glucose,Urine (UA) Negative (Negative); Ketones,Urine Negative (Negative); Leukocyte Esterase,Urine Negative (Negative); Nitrite,Urine Negative (Negative); PH, Urine 7.5 (5.0-8.0); Protein,Urine Trace (Negative); Specific Gravity,Urine 1.027 (1.001-1.035); Urobilinogen,Urine <2.0 mg/dL (<2.0)
[2018-10-11] MEDS: SODIUM CHLORIDE 0.9% 1,000 ML IV SCH (18:01)
--- NOTE | 2018-10-11 19:02 | US ---
EXAMINATION TYPE: US abdomen limited DATE OF EXAM: 10/11/2018 COMPARISON: NONE CLINICAL HISTORY: Pain. Pancreatitis. EXAM MEASUREMENTS: Liver Length: 20 cm Gallbladder Wall: Surgically absent cm CBD: 1.0 cm Right Kidney: 12 x 6 x 4.9 cm Pancreas: Obscured by bowel gas Liver: Increased attenuation Gallbladder: Surgically absent Evidence for sonographic Fisher's sign: No CBD: wnl Right Kidney: No hydronephrosis or masses seen IMPRESSION: No dilated ducts. There is probably some fatty infiltration of the liver. No free fluid. Limited evaluation of the pancreas.
[2018-10-11] MEDS: HYDROmorphone 0.5 MG/0.5 ML SYRINGE IVP PRN (21:05)
[2018-10-12] MEDS: HYDROmorphone 0.5 MG/0.5 ML SYRINGE IVP PRN ×2 (00:14→08:10)
[2018-10-12] MEDS: SODIUM CHLORIDE 0.9% 1,000 ML IV SCH ×3 (01:55→22:50)
[2018-10-12 03:33] LABS: Glucose,Whole Blood 103 mg/dL (75-99)
[2018-10-12] MEDS: hydrALAZINE HCL 20 MG/ML 1 ML VIAL IVP PRN ×2 (03:45→14:47)
--- NOTE | 2018-10-12 09:46 | P.CONS ---
History of Present Illness - Reason for Consult Consult date: 10/12/18 pancreatitis Requesting physician: Justice Nair - Chief Complaint abdominal pain - History of Present Illness 67-year-old gentleman admitted with acute upper abdominal pain for several months exacerbated over last week with a past medical history of episodes of pancreatitis last hospitalization for pancreatitis was in 2017 of unclear etiology, GERD, cholecystectomy unsure if stones are present or not, chronic marijuana usage, GERD, hypertension, pacemaker. No history of EtOH abuse takes Excedrin on a daily basis for chronic headaches/migraines. Denies fever chills weight loss acholic stools or change in the color of his urine. Pain localized mostly in the upper abdomen. No episodes of hematemesis hematochezia or melena. Patient was placed on Levsin by his PCP without improvement. Reports recent EGD less than 6 months ago no evidence of ulcer disease. Ult rasound abdomen pancreas not well visualized. No dilated ducts. Cholecystectomy changes evident. Previous CT in 2017 supported findings of pancreatitis subtle peripancreatic fat infiltration around the pancreatic head without necrosis or hemorrhage. CT 07/24/2018 for evaluation of abdominal pain. Chronic head and uncinate process no significant surrounding fat stranding or fluid. Review of Systems Constitutional: Denies fever, chills, sweats, weight gain, or loss. HEENT: Negative for migraines, blurred vision or loss, earaches, drainage, tinnitus, oral mucosal lesions, dysphagia, or odynophagia. Cardiac: Negative for chest pain, arrhythmias, or palpitation. Respiratory: Negative for shortness of breath, hemoptysis, cough, or sputum production. Gastrointestinal: See HPI for pertinent findings. Genitourinary: Negative for hematuria, urgency, frequency, polyuria, dysuria, or penile discharge. Musculoskeletal: Negative for muscle aches, swelling, arthritis, and arthralgias. Neurologic: Negative for stroke or TIA. Endocrine: Negative for thyroid problems. Skin: Negative for rash or itching. Psychiatric: Negative history for depression and anxiety Past Medical History Past Medical History: Chest Pain / Angina, GERD/Reflux, Hypertension, Osteoarthritis (OA), Prostate Disorder Additional Past Medical History / Comment(s): hypoglycemia (caused a seizure), BPH, PACEMAKER, KIDNEY STONES. History of Any Multi-Drug Resistant Organisms: None Reported Past Surgical History: Appendectomy, Cholecystectomy, Heart Catheterization, Joint Replacement, Pacemaker Additional Past Surgical History / Comment(s): rt hip replacement, KIDNEY STONES, 03-27-15 TOTAL LEFT HIP REPLACEMENT, colonoscopy few years ago that showed colonic polyps. Past Anesthesia/Blood Transfusion Reactions: No Reported Reaction Type of Cardiac Device: Permanent Pacemaker Device Placement Date:: 2013 Past Psychological History: Depression Smoking Status: Never smoker Past Alcohol Use History: Occasional Past Drug Use History: Marijuana Additional Drug Use History / Comment(s): MARIJUANA DAILY UP TO 3 JOINTS - Past Family History Sister(s) Family Medical History: Cancer Additional Family Medical History / Comment(s): lymph nodes Mother Family Medical History: COPD, Hypertension Father Family Medical History: COPD Brother(s) Family Medical History: No Reported History Daughter(s) Family Medical History: No Reported History Son(s) Family Medical History: No Reported History Medications and Allergies Home Medications Medication Instructions Recorded Confirmed Type Citalopram Hydrobromide [CeleXA] 40 mg PO DAILY 07/25/14 10/11/18 History Diltiazem Cd [Cardizem Cd] 240 mg PO DAILY 03/20/15 10/11/18 History Ergocalciferol (Vitamin D2) 50,000 units PO FR 04/28/17 10/11/18 History [Vitamin D2] Finasteride [Proscar] 5 mg PO DAILY 04/28/17 10/11/18 History HYDROcodone/APAP 7.5-325MG [[place] 1 tab PO BID 10/11/18 10/11/18 History 7.5-325] Hyoscyamine Sulfate [Levsin-Sl] 0.125 mg SL QID 10/11/18 10/11/18 History Losartan Potassium 100 mg PO DAILY 10/11/18 10/11/18 History Pantoprazole Sodium [Protonix] 40 mg PO AC-BID 10/11/18 10/11/18 History Allergies Allergy/AdvReac Type Severity Reaction Status Date / Time nickel Allergy Rash/Hives Verified 10/11/18 16:40 Physical Exam Vitals: Vital Signs Temp Pulse Pulse Pulse Resp BP BP 10/12/18 07:00 97.7 F 51 L 16 172/79 10/12/18 05:22 54 L 166/81 10/12/18 03:30 98.4 F 50 L 20 182/82 10/12/18 01:51 98.8 F 66 18 169/82 10/11/18 21:45 52 L 189/85 10/11/18 21:23 98.2 F 56 L 18 193/78 10/11/18 18:45 64 20 167/92 10/11/18 18:05 60 26 H 196/91 10/11/18 17:58 67 32 H 221/80 10/11/18 17:30 193/83 10/11/18 17:00 52 L 24 211/98 10/11/18 16:40 52 L 22 198/133 10/11/18 15:28 98.1 F 50 L 18 198/146 Pulse Ox 10/12/18 07:00 97 10/12/18 05:22 10/12/18 03:30 97 10/12/18 01:51 100 10/11/18 21:45 10/11/18 21:23 98 10/11/18 18:45 97 10/11/18 18:05 98 10/11/18 17:58 100 10/11/18 17:30 10/11/18 17:00 99 10/11/18 16:40 99 10/11/18 15:28 98 Intake and Output 10/11/18 10/12/18 10/12/18 22:59 06:59 14:59 Intake Total 300 1000 Output Total 600 Balance 300 1000 -600 Intake: Intake, IV Titration 300 1000 Amount Sodium Chloride 0.9% 1, 300 1000 000 ml @ 100 mls/hr IV . Q10H [facility] Rx#:[id number] Output: Urine 600 Other: Voiding Method Toilet Urinal # Voids 2 2 Weight 122.47 kg General appearance: The patient is alert, oriented, in no acute distress. HET: Head is normocephalic and atraumatic. Pupils are equal and reactive. Oropharynx is clear without lesions. Neck: Supple without lymphadenopathy. Trachea midline. Heart: S1 S2. Regular rate and rhythm. Lungs: No crackles or wheezes are heard. Abdomen: Soft, mild tenderness to the upper abdomen midepigastric left upper quadrant, nondistended with bowel sounds. No peritoneal signs. No palpable o rganomegaly or masses. Extremities: Normal skin color and turgor. No cyanosis, rash, ulceration, cl ubbing, or edema. Radial and pedal pulses are 2/4 bilaterally. Neurological: No focal deficits. Strength and sensation are grossly intact. Results CBC & Chem 7: 10/11/18 16:05 10/11/18 16:05 Labs: Abnormal Lab Results - Last 24 Hours (Table) 10/11/18 10/11/18 10/11/18 Range/Units 16:05 16:05 17:15 WBC 12.0 H (3.8-10.6) k/uL Neutrophils # 8.7 H (1.3-7.7) k/uL Chloride 108 H (98-107) mmol/L BUN 23 H (9-20) mg/dL Glucose 103 H (74-99) mg/dL POC Glucose (mg/dL) (75-99) mg/dL ALT 18 L (21-72) U/L Amylase 779 H* (30-110) U/L Lipase 80293 H (23-300) U/L Urine Protein Trace H (Negative) 10/12/18 Range/Units 03:31 WBC (3.8-10.6) k/uL Neutrophils # (1.3-7.7) k/uL Chloride (98-107) mmol/L BUN (9-20) mg/dL Glucose (74-99) mg/dL POC Glucose (mg/dL) 103 H (75-99) mg/dL ALT (21-72) U/L Amylase (30-110) U/L Lipase (23-300) U/L Urine Protein (Negative) US - abdomen: report reviewed (Dr. Solano) Assessment and Plan (1) Acute pancreatitis Narrative/Plan: 67-year-old gentleman with a history of previous pancreatitis episodes admitted with acute pancreatitis with normal liver function tests prior cholecystectomy unsure of stones were present or not. Underlying history of permanent pacemaker as well as chronic marijuana usage. Recent EGD in outpatient setting less than 6 months ago reported by patient no evidence of peptic ulcer disease. Etiology of pancreatitis unclear at this time. Current Visit: Yes Status: Acute Code(s): K85.90 - ACUTE PANCREATITIS WITHOUT NECROSIS OR INFECTION, UNSP SNOMED Code(s): 882968342 (2) Marijuana smoker Current Visit: Yes Status: Acute Code(s): F12.90 - CANNABIS USE, UNSPECIFIED, UNCOMPLICATED SNOMED Code(s): 945925124 (3) Pacemaker Current Visit: Yes Status: Acute Code(s): Z95.0 - PRESENCE OF CARDIAC PACEMAKER SNOMED Code(s): 965377369 Plan: 1. Morning chemistries pending. We'll request serology for autoimmune workup GENE, IgG subclass 1-4. Check triglycerides. CA-19-9. Patient has a permanent pacemaker therefore cannot proceed with MRI of the pancreas at this time. Outpatient endoscopic ultrasound was advised and will be discussed in follow-up visit scheduled November [address] De Leon. 2. Abdominal pain is presently under control will allow clear liquids. IV hydration 125 mL an hour. Protonix 40 mg IV daily. 3. Daily monitoring of CBC and CMP pancreatic enzymes. Thank you for this kind referral and the opportunity to participate in the care of your patient. This consultation was discussed with Dr. Solano. The impression and plan of care have been directed as dictated.
[2018-10-12] MEDS ORDERED: ERGOCALCIFEROL 50,000 UNIT CAP PO SCH (10:00)
[2018-10-12] MEDS: FINASTERIDE 5 MG TAB PO SCH (10:22)
[2018-10-12] MEDS: CITALOPRAM HYDROBROMIDE 20 MG TAB PO SCH (10:22)
[2018-10-12] MEDS: PANTOPRAZOLE 40 MG/10 ML VIAL IVP SCH (10:22)
[2018-10-12] MEDS: LOSARTAN 50 MG TAB PO SCH (10:22)
[2018-10-12] MEDS ORDERED: ONDANSETRON 4 MG/2 ML VIAL IVP PRN (10:33)
[2018-10-12] MEDS ORDERED: HYDROcodone/APAP 7.5-325MG 1 EACH TAB PO PRN (10:35)
[2018-10-12] MEDS: DILTIAZEM CD 240 MG CAP.ER.24H PO SCH (10:41)
[2018-10-12] MEDS ORDERED: HYDROcodone/APAP 7.5-325MG 1 EACH TAB PO SCH (10:45)
[2018-10-12] MEDS: ASPIRIN-ACET-CAFF 250-250-65MG 1 EACH TAB PO PRN ×2 (10:52→18:28)
[2018-10-12] MEDS ORDERED: IOPAMIDOL-300 CONTRAST 30 ML VIAL (ORAL USE) PO PRN (11:04)
--- NOTE | 2018-10-12 11:21 | P.HPIM ---
History of Present Illness H&P Date: 10/12/18 Chief Complaint: Abdominal pain This is a 67-year-old male with a known history of pancreatitis, diverticulitis, hypertension, GERD, pacemaker placement and marijuana use. Patient's last hospital physician for pancreatitis was in 2017. Patient has had a history of cholecystectomy due to his pancreatitis. Patient presents to the emergency room with complaints of abdominal pain in the lower abdomen that worsened after eating sliders yesterday. 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 However after yesterday's lunch pain became very severe. He presented to the ER for further evaluation and treatment. He was found have a lipase of 11,318 amylase 779. White count is 12. Abdominal ultrasound completed showing no dilated duct. Probable fatty infiltrated liver. And limited evaluation of the pancreas. Patient was initially made nothing by mouth and started on IV fluids. GI service placed on consult. Patient had a computed tomography scan in June 2016 at that time no significant abnormality noted. Patient's blood pressure has been significantly elevated 211/98. Patient placed on IV hydralazine as needed in the ER. And his home blood pressure medications have been restarted. Patient denies any fever, chills or sweats, nausea or vomiting, bowel movement changes or urinary symptoms. Review of Systems Please refer to HPI otherwise unremarkable Past Medical History Past Medical History: Chest Pain / Angina, GERD/Reflux, Hypertension, Osteoarthritis (OA), Prostate Disorder Additional Past Medical History / Comment(s): hypoglycemia (caused a seizure), BPH, PACEMAKER, KIDNEY STONES. History of Any Multi-Drug Resistant Organisms: None Reported Past Surgical History: Appendectomy, Cholecystectomy, Heart Catheterization, Joint Replacement, Pacemaker Additional Past Surgical History / Comment(s): rt hip replacement, KIDNEY STONES, 03-27-15 TOTAL LEFT HIP REPLACEMENT, colonoscopy few years ago that showed colonic polyps. Past Anesthesia/Blood Transfusion Reactions: No Reported Reaction Type of Cardiac Device: Permanent Pacemaker Device Placement Date:: 2013 Past Psychological History: Depression Smoking Status: Never smoker Past Alcohol Use History: Occasional Past Drug Use History: Marijuana Additional Drug Use History / Comment(s): MARIJUANA DAILY UP TO 3 JOINTS - Past Family History Sister(s) Family Medical History: Cancer Additional Family Medical History / Comment(s): lymph nodes Mother Family Medical History: COPD, Hypertension Father Family Medical History: COPD Brother(s) Family Medical History: No Reported History Daughter(s) Family Medical History: No Reported History Son(s) Family Medical History: No Reported History Medications and Allergies Home Medications Medication Instructions Recorded Confirmed Type Citalopram Hydrobromide [CeleXA] 40 mg PO DAILY 07/25/14 10/11/18 History Diltiazem Cd [Cardizem Cd] 240 mg PO DAILY 03/20/15 10/11/18 History Ergocalciferol (Vitamin D2) 50,000 units PO FR 04/28/17 10/11/18 History [Vitamin D2] Finasteride [Proscar] 5 mg PO DAILY 04/28/17 10/11/18 History HYDROcodone/APAP 7.5-325MG [[place] 1 tab PO BID 10/11/18 10/11/18 History 7.5-325] Hyoscyamine Sulfate [Levsin-Sl] 0.125 mg SL QID 10/11/18 10/11/18 History Losartan Potassium 100 mg PO DAILY 10/11/18 10/11/18 History Pantoprazole Sodium [Protonix] 40 mg PO AC-BID 10/11/18 10/11/18 History Allergies Allergy/AdvReac Type Severity Reaction Status Date / Time nickel Allergy Rash/Hives Verified 10/11/18 16:40 Physical Exam Vitals: Vital Signs Temp Pulse Pulse Pulse Resp BP BP 10/12/18 08:00 16 10/12/18 07:00 97.7 F 51 L 16 172/79 10/12/18 05:22 54 L 166/81 10/12/18 03:30 98.4 F 50 L 20 182/82 10/12/18 01:51 98.8 F 66 18 169/82 10/11/18 21:45 52 L 189/85 10/11/18 21:23 98.2 F 56 L 18 193/78 10/11/18 18:45 64 20 167/92 10/11/18 18:05 60 26 H 196/91 10/11/18 17:58 67 32 H 221/80 10/11/18 17:30 193/83 10/11/18 17:00 52 L 24 211/98 10/11/18 16:40 52 L 22 198/133 05/16/19 15:28 98.1 F 50 L 18 198/146 Pulse Ox 10/12/18 08:00 10/12/18 07:00 97 10/12/18 05:22 10/12/18 03:30 97 10/12/18 01:51 100 10/11/18 21:45 10/11/18 21:23 98 10/11/18 18:45 97 10/11/18 18:05 98 10/11/18 17:58 100 10/11/18 17:30 10/11/18 17:00 99 10/11/18 16:40 99 10/11/18 15:28 98 Intake and Output 10/11/18 10/12/18 10/12/18 22:59 06:59 14:59 Intake Total 300 1000 Output Total 700 Balance 300 1000 -700 Intake: Intake, IV Titration 300 1000 Amount Sodium Chloride 0.9% 1, 300 1000 000 ml @ 125 mls/hr IV . Q8H [facility] Rx#:[id number] Output: Urine 600 Emesis 100 Other: Voiding Method Toilet Toilet Urinal Urinal # Voids 2 2 Weight 122.47 kg Head normocephalic Neck supple Lungs clear to auscultation bilaterally no wheezing or crackles Heart regular rate and rhythm S1-S2, no rub or gallop Abdomen is soft tender in the left lower quadrant nondistended positive bowel sounds no hepatosplenomegaly Extremities no edema Neuro alert and orientated to 3 Results CBC & Chem 7: 10/11/18 16:05 10/11/18 16:05 Labs: Abnormal Lab Results - Last 24 Hours (Table) 10/11/18 10/11/18 10/11/18 Range/Units 16:05 16:05 17:15 WBC 12.0 H (3.8-10.6) k/uL Neutrophils # 8.7 H (1.3-7.7) k/uL Chloride 108 H (98-107) mmol/L BUN 23 H (9-20) mg/dL Glucose 103 H (74-99) mg/dL POC Glucose (mg/dL) (75-99) mg/dL ALT 18 L (21-72) U/L Amylase 779 H* (30-110) U/L Lipase 54567 H (23-300) U/L Urine Protein Trace H (Negative) 10/12/18 Range/Units 03:31 WBC (3.8-10.6) k/uL Neutrophils # (1.3-7.7) k/uL Chloride (98-107) mmol/L BUN (9-20) mg/dL Glucose (74-99) mg/dL POC Glucose (mg/dL) 103 H (75-99) mg/dL ALT (21-72) U/L Amylase (30-110) U/L Lipase (23-300) U/L Urine Protein (Negative) Thrombosis Risk Factor Assmnt - Choose All That Apply Any of the Below Risk Factors Present?: Yes Each Factor Represents 1 point: Medical pt on bed rest Other Risk Factors: Yes Each Risk Factor Represents 2 Points: Age 61-74 years Other congenital or acquired thrombophilia - If yes, enter type in comment: No Thrombosis Risk Factor Assessment Total Risk Factor Score: 3 Thrombosis Risk Factor Assessment Level: Moderate Risk Assessment and Plan Assessment: 1. Acute pancreatitis: Lipase 11,318 amylase 779. Patient has a known history of pancreatitis with prior cholecystectomy. Patient seen by GI service they have increased diet to clear liquids. They have ordered an autoimmune workup triglyceride and a CA-19-9. They're recommending outpatient endoscopic ultrasound. Repeat amylase and lipase have been ordered. Continue with IV fluid hydration. We'll add [place] for pain control and discontinue the IV Dilaudid. Patient is becoming nauseous after taking the Dilaudid. Continue with the Zofran 4 mg IV push every 6 hours as needed and Protonix 40 mg IV daily 2. Left lower quadrant abdominal pain with history of diverticulitis. We'll check a computed tomography scan of the abdomen and pelvis 3. Essential hypertension with hypertensive emergency noted in the ER. Continue the IV hydralazine as needed. Resume patient's losartan and Cardizem. Continue to monitor blood pressures closely. 4. Headache: Resume patient's Excedrin 5. History of pacemaker placement 6. History of regular marijuana use 7. History of GERD GI prophylaxis Protonix and DVT prophylaxis Lovenox Time with Patient: Greater than 30 (Greater than 50% of the total time spent in counseling and coordination of care.I performed an examination of the patient and discussed their management with the physician Security Team Lead. I have reviewed the Physician Security Team Lead's notes and agree with the documented findings and plan of care)
[2018-10-12] MEDS: HYOSCYAMINE SULFATE 0.125 MG TAB PO SCH ×3 (12:18→23:30)
[2018-10-12 12:21] LABS: Basophils % (A) 0 %; Eosinophils % (A) 0 %; HCT 39.1 % (39.0-53.0); HGB 13.1 gm/dL (13.0-17.5); Lymphocytes % (A) 11 %; MCH 30.3 pg (25.0-35.0); MCHC 33.4 g/dL (31.0-37.0); MCV 90.8 fL (80.0-100.0); Mean Platelet Volume 6.9; Monocytes # (A) 0.5 k/uL (0-1.0); Monocytes % (A) 6 %; Neutrophils # (A) 7.5 k/uL (1.3-7.7); Neutrophils % (A) 82 %; Platelet Count 282 k/uL (150-450); RBC 4.31 m/uL (4.30-5.90); RDW 13.9 % (11.5-15.5); WBC 9.2 k/uL (3.8-10.6)
[2018-10-12 12:44] LABS: ALT 18 U/L (21-72); AST 22 U/L (17-59); Albumin 3.7 g/dL (3.5-5.0); Alkaline Phosphatase 61 U/L (38-126); Anion Gap 5 mmol/L; Blood Urea Nitrogen 13 mg/dL (9-20); Calcium 9.2 mg/dL (8.4-10.2); Carbon Dioxide 26 mmol/L (22-30); Chloride 107 mmol/L (98-107); Glucose 101 mg/dL (74-99); Lipase 682 U/L (23-300); Potassium 4.3 mmol/L (3.5-5.1); Sodium 138 mmol/L (137-145); Total Bilirubin 0.8 mg/dL (0.2-1.3); Total Protein 6.5 g/dL (6.3-8.2); Triglycerides 48 mg/dL (<150)
--- NOTE | 2018-10-12 13:28 | CT ---
EXAMINATION TYPE: CT abdomen pelvis wo con DATE OF EXAM: 10/12/2018 COMPARISON: 07/24/2018 HISTORY: Abdominal pain CT DLP: 1182.4 mGycm Automated exposure control for dose reduction was used. TECHNIQUE: Helical acquisition of images was performed from the lung bases through the pelvis. FINDINGS: LUNG BASES: Left hemidiaphragm is slightly elevated. LIVER/GB: Hepatic steatosis remains, mild in degree. There is a too small to accurately characterize left hepatic lobe lesion on image 19. Additional too small to accurately characterize hepatic lesion s are also seen in the right hepatic lobe on image 21 and 20. Gallbladder surgically absent. PANCREAS: Peripancreatic fat stranding is noted surrounding the pancreatic neck and head. No ductal d ilatation is appreciated. Evaluation for pancreatic mass, splenic vein thrombosis and necrotizing quiroz creatitis are nondiagnostic given the lack of contrast. No gross evidence of splenic arterial pseudoa neurysm. SPLEEN: No significant abnormality is seen. ADRENALS: There is bilateral gross thickening of the adrenal glands is seen on the prior suggestive o f adrenal gland hyperplasia versus lipid rich adenomas. KIDNEYS: No hydronephrosis or nephrolithiasis. ADENOPATHY: No greater than 1 cm short axis lymph node is seen in the abdomen or pelvis. Multiple p rominent peripancreatic lymph nodes are likely reactive. OSSEOUS STRUCTURES: There are bilateral hip prostheses creating extensive spray artifact and limitin g evaluation of the pelvis. Mild multilevel degenerative changes of the spine are noted. BOWEL: Few scattered colonic diverticula are present without pericolonic fat stranding. OTHER: Moderate atherosclerosis is seen of the abdominal aorta and its branches. In the previously se en small amount of free fluid in the pelvis is no longer appreciated. Low pelvis is obscured by exten sive spray artifact from bilateral hip prostheses. IMPRESSION: ACUTE INTERSTITIAL EDEMATOUS PANCREATITIS WITHOUT ACUTE NECROTIC PANCREATIC FLUID COLLECTION OR PANCR EATIC PSEUDOCYST. NO PANCREATIC CALCIFICATIONS TO SUGGEST ACUTE ON CHRONIC PANCREATITIS. EVALUATION F OR PANCREATIC MASS, SPLENIC VEIN THROMBOSIS AND NECROTIZING PANCREATITIS ARE NONDIAGNOSTIC WITHOUT CO NTRAST.
[2018-10-12 19:48] LABS: Cancer Antigen 19-9 41.7 U/mL (0.0-34.9)
[2018-10-13] MEDS: hydrALAZINE HCL 20 MG/ML 1 ML VIAL IVP PRN ×2 (03:07→16:52)
[2018-10-13] MEDS: ASPIRIN-ACET-CAFF 250-250-65MG 1 EACH TAB PO PRN ×2 (04:39→09:27)
[2018-10-13] MEDS: SODIUM CHLORIDE 0.9% 1,000 ML IV SCH ×3 (05:50→22:00)
[2018-10-13 06:45] LABS: IgG Subclass 3 45.4 mg/dL (11.0-85.0); IgG Subclass 4 8.9 mg/dL (3.0-175.0)
[2018-10-13 09:07] LABS: Basophils % (A) 1 %; Eosinophils # (A) 0.1 k/uL (0-0.7); Eosinophils % (A) 2 %; HCT 40.4 % (39.0-53.0); HGB 13.4 gm/dL (13.0-17.5); Lymphocytes # (A) 1.4 k/uL (1.0-4.8); Lymphocytes % (A) 19 %; MCH 30.2 pg (25.0-35.0); MCHC 33.1 g/dL (31.0-37.0); MCV 91.2 fL (80.0-100.0); Mean Platelet Volume 6.5; Monocytes # (A) 0.5 k/uL (0-1.0); Monocytes % (A) 6 %; Neutrophils # (A) 5.3 k/uL (1.3-7.7); Neutrophils % (A) 71 %; Platelet Count 305 k/uL (150-450); RBC 4.43 m/uL (4.30-5.90); RDW 13.3 % (11.5-15.5); WBC 7.5 k/uL (3.8-10.6)
[2018-10-13 09:18] LABS: ALT 24 U/L (21-72); AST 24 U/L (17-59); Albumin 3.8 g/dL (3.5-5.0); Alkaline Phosphatase 51 U/L (38-126); Anion Gap 7 mmol/L; Blood Urea Nitrogen 12 mg/dL (9-20); Calcium 8.7 mg/dL (8.4-10.2); Carbon Dioxide 25 mmol/L (22-30); Chloride 107 mmol/L (98-107); Glucose 144 mg/dL (74-99); Lipase 426 U/L (23-300); Sodium 139 mmol/L (137-145); Total Bilirubin 0.9 mg/dL (0.2-1.3); Total Protein 6.7 g/dL (6.3-8.2)
[2018-10-13] MEDS: PANTOPRAZOLE 40 MG/10 ML VIAL IVP SCH (09:28)
[2018-10-13] MEDS: LOSARTAN 50 MG TAB PO SCH (09:28)
[2018-10-13] MEDS: FINASTERIDE 5 MG TAB PO SCH (09:28)
[2018-10-13] MEDS: ENOXAPARIN 40 MG/0.4 ML SYRINGE SQ SCH ×2 (09:29→16:53)
[2018-10-13] MEDS: CITALOPRAM HYDROBROMIDE 20 MG TAB PO SCH (09:29)
[2018-10-13] MEDS: HYOSCYAMINE SULFATE 0.125 MG TAB PO SCH ×4 (09:29→23:48)
--- NOTE | 2018-10-13 14:02 | P.PN ---
Subjective Progress Note Date: 10/13/18 This is a 67-year-old male with a known history of pancreatitis, diverticulitis, hypertension, GERD, pacemaker placement and marijuana use. Patient's last hospital physician for pancreatitis was in 2017. Patient has had a history of cholecystectomy due to his pancreatitis. Patient presents to the emergency room with complaints of abdominal pain in the lower abdomen that worsened after eating sliders yesterday. 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 However after yesterday's lunch pain became very severe. He presented to the ER for further evaluation and treatment. He was found have a lipase of 11,318 amylase 779. White count is 12. Abdominal ultrasound completed showing no dilated duct. Probable fatty infiltrated liver. And limited evaluation of the pancreas. Patient was initially made nothing by mouth and started on IV fluids. GI service placed on consult. Patient had a computed tomography scan in June 2016 at that time no significant abnormality noted. Patient's blood pressure has been significantly elevated 211/98. Patient placed on IV hydralazine as needed in the ER. And his home blood pressure medications have been restarted. Patient denies any fever, chills or sweats, nausea or vomiting, bowel movement changes or urinary symptoms. On 10/13/2018 patient was seen and examined on the medical floor, he is alert and oriented 3 he is feeling better, there is no fever or chills no headache or dizziness no chest pain no shortness of breath no cough no nausea or vomiting no abdominal pain no diarrhea and no urinary symptoms Objective - Vital Signs Vital signs: Vital Signs Temp 98.3 F 10/13/18 07:23 Pulse 47 L 10/13/18 10:37 Resp 16 10/13/18 07:23 BP 169/79 10/13/18 10:37 Pulse Ox 99 10/13/18 07:23 Intake & Output 10/12/18 10/13/18 10/13/18 18:59 06:59 18:59 Intake Total 800 2000 Output Total 700 700 Balance 100 1300 Intake: Intake, IV Titration 800 2000 Amount Sodium Chloride 0.9% 1, 800 2000 000 ml @ 125 mls/hr IV . Q8H [facility] Rx#:[id number] Output: Urine 600 700 Emesis 100 Other: Voiding Method Toilet Toilet Toilet Urinal Urinal Urinal # Voids 2 3 - Exam In general patient is alert and oriented 3 in no apparent distress Head normocephalic and atraumatic Neck supple no JVD no goiter Lungs clear to auscultation bilaterally no wheezing or crackles Heart regular rate and rhythm S1-S2, no rub or gallop Abdomen is soft tender in the left lower quadrant nondistended positive bowel sounds no hepatosplenomegaly Extremities no edema no cyanosis or clubbing Neuro no gross focal neurological deficit - Labs CBC & Chem 7: 10/13/18 08:35 10/13/18 08:35 Labs: Abnormal Lab Results - Last 24 Hours (Table) 10/12/18 10/13/18 Range/Units 11:57 08:35 Creatinine 0.54 L (0.66-1.25) mg/dL Glucose 144 H (74-99) mg/dL Lipase 426 H (23-300) U/L CA 19-9 Antigen 41.7 H (0.0-34.9) U/mL IgG2 123.0 L (169.0-640.0) mg/dL Assessment and Plan Plan: 1. Acute pancreatitis: Lipase 11,318 amylase 779 on admission. Now lipase down to 426 .Patient has a known history of pancreatitis with prior cholecystectomy. Patient seen by GI service they have increased diet to clear liquids. They have ordered an autoimmune workup triglyceride and a CA-19-9. They're recommending outpatient endoscopic ultrasound. Repeat amylase and lipase have been ordered. Continue with IV fluid hydration. We'll add [place] for pain control and discontinue the IV Dilaudid. Patient is becoming nauseous after taking the Dilaudid. Continue with the Zofran 4 mg IV push every 6 hours as needed and Protonix 40 mg IV daily 2. Left lower quadrant abdominal pain with history of diverticulitis. We'll check a computed tomography scan of the abdomen and pelvis 3. Essential hypertension with hypertensive emergency noted in the ER. Continue the IV hydralazine as needed. Resume patient's losartan and Cardizem. Continue to monitor blood pressures closely. 4. Headache: Resume patient's Excedrin 5. History of pacemaker placement 6. History of regular marijuana use 7. History of GERD GI prophylaxis Protonix and DVT prophylaxis Lovenox Patient improving gradually will advance diet to full liquid diet recheck labs in a.m.
[2018-10-13] MEDS: DILTIAZEM CD 240 MG CAP.ER.24H PO SCH (16:53)
[2018-10-14 01:06] LABS: Cholesterol 112 mg/dL (<200); HDL Cholesterol 30 mg/dL (40-60); LDL Cholesterol,Calculated 68 mg/dL (0-99); Triglycerides 70 mg/dL (<150)
[2018-10-14] MEDS: ASPIRIN-ACET-CAFF 250-250-65MG 1 EACH TAB PO PRN ×4 (03:23→20:20)
[2018-10-14] MEDS: SODIUM CHLORIDE 0.9% 1,000 ML IV SCH ×3 (05:13→20:22)
[2018-10-14] MEDS: PANTOPRAZOLE 40 MG/10 ML VIAL IVP SCH (08:24)
[2018-10-14] MEDS: hydrALAZINE HCL 20 MG/ML 1 ML VIAL IVP PRN ×3 (08:24→21:41)
[2018-10-14] MEDS: ENOXAPARIN 40 MG/0.4 ML SYRINGE SQ SCH (10:28)
[2018-10-14] MEDS: DILTIAZEM CD 240 MG CAP.ER.24H PO SCH (10:42)
[2018-10-14] MEDS: FINASTERIDE 5 MG TAB PO SCH (10:42)
[2018-10-14] MEDS: LOSARTAN 50 MG TAB PO SCH (10:42)
[2018-10-14] MEDS: CITALOPRAM HYDROBROMIDE 20 MG TAB PO SCH (10:42)
[2018-10-14] MEDS: HYOSCYAMINE SULFATE 0.125 MG TAB PO SCH ×3 (10:43→21:50)
--- NOTE | 2018-10-14 12:35 | P.PN ---
Subjective Progress Note Date: 10/14/18 This is a 67-year-old male with a known history of pancreatitis, diverticulitis, hypertension, GERD, pacemaker placement and marijuana use. Patient's last hospital physician for pancreatitis was in 2016. Patient has had a history of cholecystectomy due to his pancreatitis. Patient presents to the emergency room with complaints of abdominal pain in the lower abdomen that worsened after eating sliders yesterday. 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 However after yesterday's lunch pain became very severe. He presented to the ER for further evaluation and treatment. He was found have a lipase of 11,318 amylase 779. White count is 12. Abdominal ultrasound completed showing no dilated duct. Probable fatty infiltrated liver. And limited evaluation of the pancreas. Patient was initially made nothing by mouth and started on IV fluids. GI service placed on consult. Patient had a computed tomography scan in June 2016 at that time no significant abnormality noted. Patient's blood pressure has been significantly elevated 211/98. Patient placed on IV hydralazine as needed in the ER. And his home blood pressure medications have been restarted. Patient denies any fever, chills or sweats, nausea or vomiting, bowel movement changes or urinary symptoms. On 10/13/2018 patient was seen and examined on the medical floor, he is alert and oriented 3 he is feeling better, there is no fever or chills no headache or dizziness no chest pain no shortness of breath no cough no nausea or vomiting no abdominal pain no diarrhea and no urinary symptoms On 10/14/2018 patient was seen and examined on the medical floor he is feeling better, clinically he is doing well there is no fever or chills no abdominal pain no diarrhea no nausea or vomiting, however lipase is up today from 426 07/03/1959, at this time will hold off advancing diet Will keep on full liquid diet, will recheck labs in a.m.. Objective - Vital Signs Vital signs: Vital Signs Temp 98.1 F 10/14/18 06:53 Pulse 51 L 10/14/18 11:07 Resp 16 10/14/18 06:53 BP 171/82 10/14/18 11:07 Pulse Ox 99 10/14/18 06:53 Intake & Output 10/13/18 10/14/18 10/14/18 18:59 06:59 18:59 Intake Total 540 1740 Balance 540 1740 Intake: Intake, IV Titration 1500 Amount Sodium Chloride 0.9% 1, 1500 000 ml @ 125 mls/hr IV . Q8H [facility] Rx#:[id number] Oral 540 240 Other: Voiding Method Toilet Toilet Urinal Urinal # Voids 2 - Exam In general patient is alert and oriented 3 in no apparent distress Head normocephalic and atraumatic Neck supple no JVD no goiter Lungs clear to auscultation bilaterally no wheezing or crackles Heart regular rate and rhythm S1-S2, no rub or gallop Abdomen is soft tender in the left lower quadrant nondistended positive bowel sounds no hepatosplenomegaly Extremities no edema no cyanosis or clubbing Neuro no gross focal neurological deficit - Labs CBC & Chem 7: 10/13/18 08:35 10/13/18 08:35 Labs: Abnormal Lab Results - Last 24 Hours (Table) 10/13/18 10/13/18 Range/Units 08:35 14:44 HDL Cholesterol 30 L (40-60) mg/dL Lipase 562 H (23-300) U/L Assessment and Plan Plan: 1. Acute pancreatitis: Lipase 11,318 amylase 779 on admission. Now lipase down to 426 .Patient has a known history of pancreatitis with prior cholecystectomy. Patient seen by GI service they have increased diet to clear liquids. They have ordered an autoimmune workup triglyceride and a CA-19-9. They're recommending outpatient endoscopic ultrasound. Repeat amylase and lipase have been ordered. Continue with IV fluid hydration. We'll add [place] for pain control and discontinue the IV Dilaudid. Patient is becoming nauseous after taking the Dilaudid. Continue with the Zofran 4 mg IV push every 6 hours as needed and Protonix 40 mg IV daily 2. Left lower quadrant abdominal pain with history of diverticulitis. We'll c heck a computed tomography scan of the abdomen and pelvis 3. Essential hypertension with hypertensive emergency noted in the ER. Continue the IV hydralazine as needed. Resume patient's losartan and Cardizem. Continue to monitor blood pressures closely. 4. Headache: Resume patient's Excedrin 5. History of pacemaker placement 6. History of regular marijuana use 7. History of GERD GI prophylaxis Protonix and DVT prophylaxis Lovenox Lipase is up today from 426 to 562 will continue with current diet and recheck labs in a.m. Patient improving gradually will advance diet to full liquid diet recheck labs in a.m. CA-19-9/9 antigen slightly elevated at 41.7 normal range is 0-34.9 Patient will need referral as outpatient for further evaluation as a surgery care center
[2018-10-14] MEDS: hydrALAZINE HCL 25 MG TAB PO SCH ×2 (15:33→20:20)
[2018-10-14] MEDS ORDERED: FUROSEMIDE 10 MG/ML 2 ML VIAL IV STA (21:31)
[2018-10-14] MEDS ORDERED: ASPIRIN-ACET-CAFF 250-250-65MG 1 EACH TAB PO PRN (21:31)
[2018-10-14] MEDS ORDERED: ASPIRIN-ACET-CAFF 250-250-65MG 1 EACH TAB PO ONE (21:34)
[2018-10-14] MEDS ORDERED: SODIUM CHLORIDE 0.9% 1,000 ML IV SCH (21:45)
[2018-10-15 08:07] VITALS: TEMP 97.7
[2018-10-15] MEDS: CITALOPRAM HYDROBROMIDE 20 MG TAB PO SCH (08:31)
[2018-10-15] MEDS: FINASTERIDE 5 MG TAB PO SCH (08:32)
[2018-10-15] MEDS: LOSARTAN 50 MG TAB PO SCH (08:32)
[2018-10-15] MEDS: HYOSCYAMINE SULFATE 0.125 MG TAB PO SCH ×2 (08:32→14:02)
[2018-10-15] MEDS: ENOXAPARIN 40 MG/0.4 ML SYRINGE SQ SCH (08:32)
[2018-10-15] MEDS: hydrALAZINE HCL 25 MG TAB PO SCH (08:32)
[2018-10-15] MEDS: PANTOPRAZOLE 40 MG/10 ML VIAL IVP SCH (08:33)
[2018-10-15] MEDS ORDERED: DILTIAZEM CD 180 MG CAP.ER.24H PO SCH (09:00)
[2018-10-15 11:45] VITALS: BP 165/50; PULSE 53; RESP 17
[2018-10-15 11:56] LABS: Basophils % (A) 1 %; Eosinophils # (A) 0.1 k/uL (0-0.7); Eosinophils % (A) 1 %; HCT 42.1 % (39.0-53.0); HGB 13.9 gm/dL (13.0-17.5); Lymphocytes # (A) 1.8 k/uL (1.0-4.8); Lymphocytes % (A) 24 %; MCH 29.6 pg (25.0-35.0); MCV 89.9 fL (80.0-100.0); Mean Platelet Volume 6.7; Monocytes # (A) 0.6 k/uL (0-1.0); Monocytes % (A) 7 %; Neutrophils # (A) 5.1 k/uL (1.3-7.7); Neutrophils % (A) 66 %; Platelet Count 328 k/uL (150-450); RBC 4.68 m/uL (4.30-5.90); RDW 13.7 % (11.5-15.5); WBC 7.8 k/uL (3.8-10.6)
[2018-10-15 12:04] LABS: ALT 26 U/L (21-72); AST 32 U/L (17-59); Albumin 4.3 g/dL (3.5-5.0); Alkaline Phosphatase 59 U/L (38-126); Amylase 54 U/L (30-110); Anion Gap 9 mmol/L; Blood Urea Nitrogen 11 mg/dL (9-20); Calcium 9.9 mg/dL (8.4-10.2); Carbon Dioxide 23 mmol/L (22-30); Chloride 105 mmol/L (98-107); Glucose 80 mg/dL (74-99); Lipase 280 U/L (23-300); Potassium 4.5 mmol/L (3.5-5.1); Sodium 137 mmol/L (137-145); Total Bilirubin 0.8 mg/dL (0.2-1.3); Total Protein 7.4 g/dL (6.3-8.2)
--- NOTE | 2018-10-15 14:09 | P.DS ---
Providers Date of admission: 10/11/18 17:37 Expected date of discharge: 10/15/18 Attending physician: Justice Nair Consults: 10/11/18 17:45 Consult Physician Routine Consulting Provider: Quinn Solano Consult Reason/Comments: pancreatitis Do you want consulting provider notified?: Yes, Notify in am Primary care physician: Justice Korey [facility] Course: Discharge diagnosis 1. Acute pancreatitis: Lipase 11,318 amylase 779 on admission. Patient has a known history of pancreatitis with prior cholecystectomy. They're recommending outpatient endoscopic ultrasound to [facility]. 2. Left lower quadrant abdominal pain with history of diverticulitis. Resolved. No evidence of diverticulitis noted on CAT scan 3. Essential hypertension with hypertensive emergency noted in the ER. Blood pressure medications adjusted during this admission and blood pressure showing improvement. 4. Headache: Resume patient's Excedrin 5. History of pacemaker placement 6. History of regular marijuana use 7. History of GERD 8. Elevated CA 19- 9 patient follow-up with GI service and [facility] outpatient Hospital course This is a 67-year-old male with a known history of pancreatitis, diverticulitis, hypertension, GERD, pacemaker placement and marijuana use. Patient's last hospital physician for pancreatitis was in 2016. Patient has had a history of c holecystectomy due to his pancreatitis. Patient presents to the emergency room with complaints of abdominal pain in the lower abdomen that worsened after eating sliders yesterday. 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 However after yesterday's lunch pain became very severe. He presented to the ER for further evaluation and treatment. He was found have a lipase of 11,318 amylase 779. White count is 12. Abdominal ultrasound completed showing no dilated duct. Probable fatty infiltrated liver. And limited evaluation of the pancreas. Patient was initially made nothing by mouth and started on IV fluids. GI service placed on consult. Patient had a computed tomography scan in June 2016 at that time no significant abnormality noted. Patient's blood pressure has been significantly elevated 211/98. Patient placed on IV hydralazine as needed in the ER. And his home blood pressure medications have been restarted. Patient denies any fever, chills or sweats, nausea or vomiting, bowel movement changes or urinary symptoms. On 10/13/2018 patient was seen and examined on the medical floor, he is alert and oriented 3 he is feeling better, there is no fever or chills no headache or dizziness no chest pain no shortness of breath no cough no nausea or vomiting no abdominal pain no diarrhea and no urinary symptoms On 10/14/2018 patient was seen and examined on the medical floor he is feeling better, clinically he is doing well there is no fever or chills no abdominal pain no diarrhea no nausea or vomiting, however lipase is up today from 426 07/03/1959, at this time will hold off advancing diet Will keep on full liquid diet, will recheck labs in a.m.. 10/15/2018 patient is medically stable for discharge. He was treated for an acute pancreatitis during this admission. Initially made nothing by mouth and treated with IV fluids and pain medication. Currently on a clear liquid diet. His lipase did normalize at 280. Abdominal pain has resolved. Patient has been educated to titrate his diet up very slowly. He will follow up with GI service outpatient. Patient will require a referral to [facility] for further evaluation of his pancreatitis. Patient did have minimally elevated CA-19-9 of 41.7. Patient's blood pressures have been elevated during this admission blood pressure medications have been adjusted hydralazine was increased to 25 mg 3 times a day. Hydrochlorothiazide 25 mg daily was added to the Cozaar 100 daily. Cardizem was decreased to 180 mg daily due to some bradycardia. Patient's symptoms have improved blood pressure and heart rate are stable. He is medically stable for discharge. He'll follow up with GI service and Dr. Nair in 1 week. I performed an examination of the patient and discussed their management with the physician Checker And Packer. I have reviewed the Physician Checker And Packer's notes and agree with the documented findings and plan of care Patient Condition at Discharge: Stable Plan - Discharge Summary Discharge Rx Participant: Yes New Discharge Prescriptions: New hydrALAZINE HCL [Apresoline] 25 mg PO TID #90 tab Diltiazem Cd [Cardizem CD] 180 mg PO DAILY #30 cap.er.24h Losartan/Hydrochlorothiazide [Losartan-Hctz 100-25 mg Tab] 1 each PO DAILY #30 tablet Continue Citalopram Hydrobromide [CeleXA] 40 mg PO DAILY Finasteride [Proscar] 5 mg PO DAILY Ergocalciferol (Vitamin D2) [Vitamin D2] 50,000 units PO FR Pantoprazole Sodium [Protonix] 40 mg PO AC-BID Hyoscyamine Sulfate [Levsin-Sl] 0.125 mg SL QID HYDROcodone/APAP 7.5-325MG [[place] 7.5-325] 1 tab PO BID Discontinued Diltiazem Cd [Cardizem Cd] 240 mg PO DAILY Losartan Potassium 100 mg PO DAILY Discharge Medication List Citalopram Hydrobromide [CeleXA] 40 mg PO DAILY 07/25/14 [History] Ergocalciferol (Vitamin D2) [Vitamin D2] 50,000 units PO FR 04/28/17 [History] Finasteride [Proscar] 5 mg PO DAILY 04/28/17 [History] HYDROcodone/APAP 7.5-325MG [[place] 7.5-325] 1 tab PO BID 10/11/18 [History] Hyoscyamine Sulfate [Levsin-Sl] 0.125 mg SL QID 10/11/18 [History] Pantoprazole Sodium [Protonix] 40 mg PO AC-BID 10/11/18 [History] Diltiazem Cd [Cardizem CD] 180 mg PO DAILY #30 cap.er.24h 10/15/18 [Rx] Losartan/Hydrochlorothiazide [Losartan-Hctz 100-25 mg Tab] 1 each PO DAILY #30 tablet 10/15/18 [Rx] hydrALAZINE HCL [Apresoline] 25 mg PO TID #90 tab 10/15/18 [Rx] Follow up Appointment(s)/Referral(s): Ty De Leon MD [STAFF PHYSICIAN] - 11/08/18 3:15 pm Justice Nair MD [Primary Care Provider] - 1 Week Patient Instructions/Handouts: Pancreatitis (DC) Activity/Diet/Wound Care/Special Instructions: Diet: cardiac. Advance diet slowly Activity: as tolerated Discharge Disposition: HOME SELF-CARE
== END 2018-10-15 15:06 | disposition home or self-care (01) | DRG 439 ==
LOC: EC 15:09 → 4SSUR 17:37
PROVIDERS: ADMIT Internal Medicine; ATTEND Internal Medicine
DX: K85.90 Acute pancreatitis without necrosis or infection, unspecified (principal); I16.1 Hypertensive emergency; F32.9 Major depressive disorder, single episode, unspecified; G89.29 Other chronic pain; I10 Essential (primary) hypertension; K21.9 Gastro-esophageal reflux disease without esophagitis; N40.0 Benign prostatic hyperplasia without lower urinary tract symptoms; M19.90 Unspecified osteoarthritis, unspecified site; R51 Headache; R00.1 Bradycardia, unspecified; K57.90 Diverticulosis of intestine, part unspecified, without perforation or abscess without bleeding; Z79.899 Other long term (current) drug therapy; Z91.048 Other nonmedicinal substance allergy status; Z96.643 Presence of artificial hip joint, bilateral; Z95.0 Presence of cardiac pacemaker; Z90.49 Acquired absence of other specified parts of digestive tract; Z87.442 Personal history of urinary calculi; Z86.010 Personal history of colon polyps; Z82.5 Family history of asthma and other chronic lower respiratory diseases; Z82.49 Family history of ischemic heart disease and other diseases of the circulatory system
CPT/HCPCS: 36415; 74176; 76705; 80053; 80061; 81003; 82150; 82787; 83690; 84478; 85025; 86038; 86301; 96361; 96374; 96375; 99285

== ENCOUNTER → 2019-05-10 | Outpatient (CLI) | payer MEDICARE, BC ==
--- NOTE | 2019-05-10 09:51 | XR ---
Cervical spine HISTORY: Neck pain 6 views of the spine Cervical vertebral bodies show preserved height, near anatomic alignment, bone mineralization. There is spondylosis especially at C5-6, C6-7 with associated loss of disc height also noted, loss of disc height less severe at C4-5. Multilevel foraminal encroachment present at C5-6, C6-7, C7-T1 bilaterall y. There is multilevel facet arthropathy. Prevertebral soft tissues are normal. IMPRESSION: Degenerative disc disease.
== END ==
LOC: RADXRMAIN 08:58
PROVIDERS: ATTEND Internal Medicine
DX: M50.321 Other cervical disc degeneration at C4-C5 level (principal)
CPT/HCPCS: 72050

== ENCOUNTER → 2019-05-11 | Outpatient (CLI) | payer MEDICARE ==
[2019-05-14 18:52] LABS: Large VLDL Particle Number,NMR 1.7 nmol/L (<=2.7)
== END | disposition home or self-care (01) ==
LOC: LABWHC1 09:26
PROVIDERS: ATTEND Internal Medicine Cardiovascular Disease
DX: R07.9 Chest pain, unspecified (principal)
CPT/HCPCS: 36415; 83704

== ENCOUNTER → 2020-01-21 | Outpatient (CLI) | payer MEDICARE ==
[2020-01-21 14:53] LABS: HCT 40.7 % (39.0-53.0); HGB 13.2 gm/dL (13.0-17.5); MCH 29.9 pg (25.0-35.0); MCHC 32.4 g/dL (31.0-37.0); MCV 92.1 fL (80.0-100.0); Mean Platelet Volume 6.9; Platelet Count 292 k/uL (150-450); RBC 4.42 m/uL (4.30-5.90); RDW 13.1 % (11.5-15.5); WBC 11.7 k/uL (3.8-10.6)
[2020-01-21 15:06] LABS: African American GFR (CKD) >90 (>60 ml/min/1.73 sqM); Anion Gap 3 mmol/L; Blood Urea Nitrogen 29 mg/dL (9-20); Carbon Dioxide 31 mmol/L (22-30); Chloride 104 mmol/L (98-107); Non-African American GFR(CKD) >90 (>60 ml/min/1.73 sqM); Potassium 4.3 mmol/L (3.5-5.1); Sodium 138 mmol/L (137-145)
== END | disposition home or self-care (01) ==
LOC: LABPAT 14:13
PROVIDERS: ATTEND Internal Medicine
DX: Z01.818 Encounter for other preprocedural examination (principal); I20.9 Angina pectoris, unspecified
CPT/HCPCS: 36415; 80051; 82565; 84520; 85027

== ENCOUNTER 2020-01-22 06:28 | Day surgery (SDC) | payer MEDICARE ==
[2020-01-20 08:53] VITALS: BMI 33.1
[~2020-01-22 06:28] MED LIST: ALPRAZolam 0.25 MG TAB PO PRN; ALPRAZolam 0.5 MG TAB PO PRN; ASPIRIN 325 MG TAB PO STA; ATORVASTATIN 80 MG TAB PO STA; NITROGLYCERIN SL TABS 0.4 MG TAB SUBLINGUAL PRN; SODIUM CHLORIDE 0.9% 1,000 ML in EMPTY BAG 1 BAG IV ONE
[2020-01-22 07:05] VITALS: RESP 16; TEMP 98.2
[2020-01-22] MEDS ORDERED: VERAPAMIL 2.5 MG/ML 2 ML AMP ONE (07:24)
[2020-01-22] MEDS ORDERED: LIDOCAINE 1% INJ 10MG/ML (20 ML MDV) ONE (07:24)
[2020-01-22] MEDS ORDERED: fentaNYL (PF) 50 MCG/ML 2 ML AMP ONE (07:24)
[2020-01-22] MEDS ORDERED: MIDAZOLAM 2 MG/2 ML VIAL IVP ONE (07:32)
[2020-01-22] MEDS ORDERED: fentaNYL (PF) 50 MCG/ML 2 ML AMP IVP ONE (07:32)
[2020-01-22] MEDS ORDERED: LIDOCAINE 1% INJ 10MG/ML (20 ML MDV) SQ ONE (07:34)
[2020-01-22] MEDS ORDERED: HEPARIN SODIUM 1,000 UN/ML (10ML VL) ONE (07:34)
[2020-01-22] MEDS: VERAPAMIL SYRINGE (5 MG/10 ML) INTRAARTER ONE ×2 (07:40→07:59)
[2020-01-22] MEDS ORDERED: HEPARIN SODIUM 1,000 UN/ML (10ML VL) IV ONE (07:42)
[2020-01-22] MEDS ORDERED: IOPAMIDOL-370 125ML BTL INJ ONE (07:57)
[2020-01-22] MEDS ORDERED: IOPAMIDOL-370 50ML BTL INJ ONE (07:57)
[2020-01-22] MEDS ORDERED: RX INFO: IV CONTRAST WAS GIVEN 1 EACH MISC MISCELLANE PRN (08:06)
--- NOTE | 2020-01-22 08:20 | P.CARDCATH ---
Date of Procedure: 01/22/20 Preoperative Diagnosis: Class 3-4 Angina Postoperative Diagnosis: Same Procedure(s) Performed: LHC, LV gram Surgeon: Arturo Montes Description of Procedure: HISTORY: Patient is a pleasant 69-year-old male with history of bradycardia with permanent pacemaker, essential hypertension, sick sinus syndrome who has been experiencing chest pain over the last few months. He had prior workup including a nuclear stress test which showed no perfusion abnormalities however he was started on Imdur which appeared to improve his symptoms. Given persistent continued chest pain with occasional chest pain at rest patient was offered a heart catheterization to further rule out coronary artery disease. CONSENT:I have discussed the risks, benefits and alternative therapies for the above-mentioned procedure and for both sedation/analgesia as well as necessary blood product administration, if indicated, as they pertain to this patient. The patient has indicated understanding and acceptance of the risks and procedures discussed. PROCEDURE: After the risks, benefits and alternatives of the above mentioned procedure explained in detail with the patient, informed consent was obtained. Patient was taken to the catheterization lab and prepped and draped in usual fashion. 1% lidocaine was used to anesthetize the right radial artery. A 6- Hungarian sheath was placed in the right radial artery using modified Seldinger technique. Left coronary angiography was performed with a 5-Hungarian JL 3.5 catheter and right coronary angiography was performed with a 5-Hungarian JR5 catheter in various views. A 5-Hungarian pigtail catheter was then inserted into the left ventricle and pressure measurements were obtained. A left ventriculography was performed in the SOLIS projection. Pullback across the aortic valve was performed. The right radial sheath was removed and a TR band was placed with hemostasis achieved. The patient tolerated the procedure well. Patient was transported back to the post catheterization holding area in stable condition. Conscious Sedation: Patient was monitored under the direct supervision of vision of myself for conscious sedation using 1 mg Versed and 50 mcg fentanyl for a total duration of 28 minutes HEMODYNAMICS: Blood pressure 158/72, heart rate 45, respiratory rate 16 SELECTIVE CORONARY ARTERIOGRAPHY: LEFT MAIN: Left main is a large caliber vessel without any significant stenosis. It bifurcates in the LAD and circumflex. LEFT ANTERIOR DESCENDING CORONARY ARTERY: LAD is a large caliber vessel which gives off 1 moderate size diagonal branch. There is a 30-40% stenosis at the origin of the diagonal branch. Otherwise there are mild luminal irregularities. LEFT CIRCUMFLEX AND IS CORONARY ARTERY: The circumflex is a large caliber vessel. It gives off a high OM 1 branch and then has a 30% stenosis of the mid circumflex. It then gives off a moderate caliber OM 2 and on 3 without any other significant stenosis. RIGHT CORONARY ARTERY: The RCA is a large caliber vessel which has mild luminal irregularities. It gives off the PDA and PLV and is the dominant artery. LEFT VENTRICULOGRAPHY: Left ventricular ejection fraction is 45% with global hypokinesis. No significant mitral regurgitation, no gradient we'll pullback across the aortic valve. LV: 160/2 LVEDP 10mmHg FINAL IMPRESSION: 1. Mild nonobstructive coronary artery disease as described above with normal RCA, mild 30% circumflex and 30-40% mid LAD stenosis. 2. Ejection fraction 45% with global hypokinesis 3. Normal left ventricular filling pressures PLAN: 1. Aggressive risk factor modification per most recent ACC/AHA guidelines. 2. Optimize heart failure treatment given mildly decreased ejection fraction 3. Follow-up outpatient for further investigation of his chest pain.
[2020-01-22 08:45] VITALS: BP 150/68; PULSE 44
== END 2020-01-22 11:45 | disposition home or self-care (01) ==
LOC: CATHCVL 06:28
PROVIDERS: ATTEND Internal Medicine
DX: I25.10 Atherosclerotic heart disease of native coronary artery without angina pectoris (principal); R07.89 Other chest pain; I10 Essential (primary) hypertension; I49.5 Sick sinus syndrome; E78.00 Pure hypercholesterolemia, unspecified; E66.9 Obesity, unspecified; R00.0 Tachycardia, unspecified; M19.90 Unspecified osteoarthritis, unspecified site; R61 Generalized hyperhidrosis; T39.016A Underdosing of aspirin, initial encounter; Z95.0 Presence of cardiac pacemaker; Z68.35 Body mass index [BMI] 35.0-35.9, adult; Z87.19 Personal history of other diseases of the digestive system; Z91.128 Patient's intentional underdosing of medication regimen for other reason; Z79.899 Other long term (current) drug therapy; Z98.890 Other specified postprocedural states
CPT/HCPCS: 93458; C1887; C1769; C1894; J2250; J2001; J3010; J1644; Q9967 ×2

== ENCOUNTER 2021-07-24 11:39 | Observation (INO) | payer MEDICARE ==
[2021-07-24 12:13] LABS: Basophils % (A) 0 %; Eosinophils # (A) 0.1 k/uL (0-0.7); Eosinophils % (A) 1 %; HCT 41.6 % (39.0-53.0); Lymphocytes # (A) 2.1 k/uL (1.0-4.8); Lymphocytes % (A) 26 %; MCH 31.5 pg (25.0-35.0); MCHC 33.6 g/dL (31.0-37.0); MCV 93.6 fL (80.0-100.0); Mean Platelet Volume 6.9; Monocytes # (A) 0.5 k/uL (0-1.0); Monocytes % (A) 6 %; Neutrophils # (A) 5.3 k/uL (1.3-7.7); Neutrophils % (A) 65 %; Platelet Count 304 k/uL (150-450); RBC 4.45 m/uL (4.30-5.90); RDW 13.4 % (11.5-15.5); WBC 8.2 k/uL (3.8-10.6)
[2021-07-24 12:20] LABS: African American GFR (CKD) >90 (>60 ml/min/1.73 sqM); Anion Gap 8 mmol/L; Blood Urea Nitrogen 28 mg/dL (9-20); Calcium 9.6 mg/dL (8.4-10.2); Carbon Dioxide 25 mmol/L (22-30); Chloride 106 mmol/L (98-107); Glucose 131 mg/dL (74-99); Non-African American GFR(CKD) >90 (>60 ml/min/1.73 sqM); Sodium 139 mmol/L (137-145)
[2021-07-24 12:31] LABS: Partial Thromboplastin Time 23.1 sec (22.0-30.0)
--- NOTE | 2021-07-24 12:32 | ED ---
General Adult HPI - General Chief complaint: Chest Pain Stated complaint: Chest Pain Time Seen by Provider: 07/24/21 11:59 Source: patient Mode of arrival: EMS Limitations: no limitations - History of Present Illness Initial comments: Dictation was produced using [employer] dictation software. please excuse any grammatical, word or spelling errors. Chief Complaint: 70-year-old male presents to the emergency department for episode chest pain. History of Present Illness: She is 70-year-old male he states that he has past medical history of coronary artery disease. He has a pacemaker. He was at a wrestling meet watching his family member when all of a sudden he began having chest pain. States it is a severe pressure to his anterior chest that radiated up his chest causing diaphoresis and nausea. Patient states the pain lasted for 25 minutes upon EMS arrival patient was given aspirin. Patient normally has nitro glycerin that he takes over did not have any on hand. Patient is asymptomatic at the bedside. States that he's been having pain like this once per week. The ROS documented in this emergency department record has been reviewed and confirmed by me. Those systems with pertinent positive or negative responses h ave been documented in the HPI. All other systems are other negative and/or noncontributory. PHYSICAL EXAM: General Impression: Alert and oriented x3, not in acute distress HEENT: Normocephalic atraumatic, extra-ocular movements intact, pupils equal and reactive to light bilaterally, mucous membranes moist. Cardiovascular: Heart regular rate and rhythm Chest: Able to complete full sentences, no retractions, no tachypnea Abdomen: abdomen soft, non-tender, non-distended, no organomegaly Musculoskeletal: Pulses present and equal in all extremities, no peripheral edema Motor: no focal deficits noted Neurological: CN II-XII grossly intact, no focal motor or sensory deficits noted Skin: Intact with no visualized rashes Psych: Normal affect and mood ED course: 70-year-old male presents emergency department for clinical presentation concerning for acute coronary syndrome. He is asymptomatic at bedside currently however he does have several high-risk features. Signs upon arrival are within acceptable limits. EKG does not show any signs of ischemia or infarction. Chart review shows that patient had a cardiac catheterization performed December 2019 showing coronary artery disease to the LAD and mid circumflex Laboratory evaluation obtained. CBC, coag panel, metabolic panel is unrem arkable. Chest x-ray is nonacute. Patient reevaluated bedside 1:15 PM upon the stable medical condition. Still asymptomatic however he is high risk and should be monitored. Patient be admitted to Dr. Nair. Cardiology consulted. Patient received aspirin prehospital by ems EKG interpretation: Ventricular rate 45, sinus bradycardia, OK interval 187, QRS 108, QTC 410. No OK prolongation, no QTC prolongation, no ST or T-wave changes noted. EKG compared to 01/13/2015 showing no changes. Overall, this EKG is unremarkable - Related Data Home Medications Medication Instructions Recorded Confirmed Citalopram Hydrobromide [CeleXA] 40 mg PO DAILY 07/25/14 01/22/20 Ergocalciferol (Vitamin D2) 50,000 units PO FR 04/28/17 01/22/20 [Vitamin D2] Finasteride [Proscar] 5 mg PO DAILY 04/28/17 01/22/20 HYDROcodone/APAP 7.5-325MG [[place] 1 tab PO BID 10/11/18 01/22/20 7.5-325] Pantoprazole Sodium [Protonix] 40 mg PO AC-BID 10/11/18 01/22/20 Previous Rx's Medication Instructions Recorded Diltiazem Cd [Cardizem CD] 180 mg PO DAILY #30 cap.er.24h 10/15/18 Losartan/Hydrochlorothiazide 1 each PO DAILY #30 tablet 10/15/18 [Losartan-Hctz 100-25 mg Tab] hydrALAZINE HCL [Apresoline] 25 mg PO TID #90 tab 10/15/18 Allergies Allergy/AdvReac Type Severity Reaction Status Date / Time nickel Allergy Rash/Hives Verified 07/24/21 11:58 Review of Systems ROS Statement: Those systems with pertinent positive or pertinent negative responses have been documented in the HPI. ROS Other: All systems not noted in ROS Statement are negative. Past Medical History Past Medical History: Chest Pain / Angina, GERD/Reflux, Hypertension, Osteoarthritis (OA), Prostate Disorder Additional Past Medical History / Comment(s): hypoglycemia (caused a seizure), BPH, PACEMAKER, KIDNEY STONES. 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 History of Any Multi-Drug Resistant Organisms: None Reported Past Surgical History: Appendectomy, Cholecystectomy, Heart Catheterization, Joint Replacement, Pacemaker Additional Past Surgical History / Comment(s): Cory hip replacement, KIDNEY STONES, colonoscopy Past Anesthesia/Blood Transfusion Reactions: No Reported Reaction Type of Cardiac Device: Permanent Pacemaker Device Placement Date:: 2013 Past Psychological History: No Psychological Hx Reported Smoking Status: Never smoker Past Alcohol Use History: None Reported Past Drug Use History: Marijuana - Past Family History Sister(s) Family Medical History: Cancer Additional Family Medical History / Comment(s): lymph nodes Mother Family Medical History: COPD, Hypertension Father Family Medical History: COPD Brother(s) Family Medical History: No Reported History Daughter(s) Family Medical History: No Reported History Son(s) Family Medical History: No Reported History General Exam Limitations: no limitations Course Vital Signs 07/24/21 07/24/21 07/24/21 11:55 11:58 12:00 Temperature 98.1 F Pulse Rate 51 L 51 L 52 L Respiratory 18 18 18 Rate Blood Pressure 164/85 164/85 O2 Sat by Pulse 96 96 Oximetry Medical Decision Making - Lab Data Result diagrams: 07/24/21 12:01 07/24/21 12:01 Lab Results 07/24/21 07/24/21 07/24/21 Range/Units 12:01 12:01 12:01 WBC 8.2 (3.8-10.6) k/uL RBC 4.45 (4.30-5.90) m/uL Hgb 14.0 (13.0-17.5) gm/dL Hct 41.6 (39.0-53.0) % MCV 93.6 (80.0-100.0) fL MCH 31.5 (25.0-35.0) pg MCHC 33.6 (31.0-37.0) g/dL RDW 13.4 (11.5-15.5) % Plt Count 304 (150-450) k/uL MPV 6.9 Neutrophils % 65 % Lymphocytes % 26 % Monocytes % 6 % Eosinophils % 1 % Basophils % 0 % Neutrophils # 5.3 (1.3-7.7) k/uL Lymphocytes # 2.1 (1.0-4.8) k/uL Monocytes # 0.5 (0-1.0) k/uL Eosinophils # 0.1 (0-0.7) k/uL Basophils # 0.0 (0-0.2) k/uL PT 11.0 (9.0-12.0) sec INR 1.0 (<1.2) APTT 23.1 (22.0-30.0) sec Sodium 139 (137-145) mmol/L Potassium 4.0 (3.5-5.1) mmol/L Chloride 106 (98-107) mmol/L Carbon Dioxide 25 (22-30) mmol/L Anion Gap 8 mmol/L BUN 28 H (9-20) mg/dL Creatinine 0.78 (0.66-1.25) mg/dL Est GFR (CKD-EPI)AfAm >90 (>60 ml/min/1.73 sqM) Est GFR (CKD-EPI)NonAf >90 (>60 ml/min/1.73 sqM) Glucose 131 H (74-99) mg/dL Calcium 9.6 (8.4-10.2) mg/dL Magnesium 2.0 (1.6-2.3) mg/dL Troponin I (0.000-0.034) ng/mL 07/24/21 Range/Units 12:01 WBC (3.8-10.6) k/uL RBC (4.30-5.90) m/uL Hgb (13.0-17.5) gm/dL Hct (39.0-53.0) % MCV (80.0-100.0) fL MCH (25.0-35.0) pg MCHC (31.0-37.0) g/dL RDW (11.5-15.5) % Plt Count (150-450) k/uL MPV Neutrophils % % Lymphocytes % % Monocytes % % Eosinophils % % Basophils % % Neutrophils # (1.3-7.7) k/uL Lymphocytes # (1.0-4.8) k/uL Monocytes # (0-1.0) k/uL Eosinophils # (0-0.7) k/uL Basophils # (0-0.2) k/uL PT (9.0-12.0) sec INR (<1.2) APTT (22.0-30.0) sec Sodium (137-145) mmol/L Potassium (3.5-5.1) mmol/L Chloride (98-107) mmol/L Carbon Dioxide (22-30) mmol/L Anion Gap mmol/L BUN (9-20) mg/dL Creatinine (0.66-1.25) mg/dL Est GFR (CKD-EPI)AfAm (>60 ml/min/1.73 sqM) Est GFR (CKD-EPI)NonAf (>60 ml/min/1.73 sqM) Glucose (74-99) mg/dL Calcium (8.4-10.2) mg/dL Magnesium (1.6-2.3) mg/dL Troponin I 0.012 (0.000-0.034) ng/mL Disposition Clinical Impression: ACS (acute coronary syndrome) Disposition: ADMITTED IP TO THIS HOSP Condition: Critical Referrals: Justice Nair MD [Primary Care Provider] - 1-2 days
--- NOTE | 2021-07-24 12:50 | XR ---
EXAMINATION TYPE: XR chest 1V portable DATE OF EXAM: 07/24/2021 COMPARISON: Chest x-ray 08/11/2017 HISTORY: Chest pain TECHNIQUE: Single frontal view of the chest is obtained. FINDINGS: There is no focal air space opacity, pleural effusion, or pneumothorax seen. The cardiac silhouette size is within normal limits. There is a generator in the right pectoral region, leads ar e present in stable position. The osseous structures are intact. IMPRESSION: No acute process.
[2021-07-24] MEDS ORDERED: NITROGLYCERIN SL TABS 0.4 MG TAB SUBLINGUAL PRN (13:08)
[2021-07-24 13:51] LABS: Amylase 40 U/L (30-110); Lipase 44 U/L (23-300)
[2021-07-24] MEDS ORDERED: HYDROcodone/APAP 7.5-325MG 1 EACH TAB PO PRN (13:55)
--- NOTE | 2021-07-24 13:55 | P.HPIM ---
History of Present Illness H&P Date: 07/24/21 Ramírez Salter, is a 70-year-old male who presented to [facility] emergency room with a chief complaint of chest pain, patient stated that he was sitting on a bench watching his grandson wrestling when he started feeling a squeezing pain in the lower sternal area radiating up to his chest and up to his neck and jaw pain lasted about 30 minutes and was relieved when he was given asp irin by the EMS. He was evaluated in the emergency room vital examination on presentation revealed a temperature of 98.1 pulse 51 respiration 18 blood pressure 164/85 pulse ox 96% on room air Laboratory data revealed a white blood count of 8.2 hemoglobin 14.0 platelet count 304 sodium 139 potassium 4.0 chloride 106 CO2 25 BUN 28 creatinine 0.78 glucose level was 131 troponin level was 0.012 Testing in the emergency room revealed chest x-ray done in the emergency room revealed no acute process EKG done in the emergency room revealed sinus bradycardia with heart rate of 45 otherwise no acute abnormality Patient was admitted to telemetry floor for further evaluation and treatment, cardiology consultation was requested Past medical history is significant for history of hypertension, history of coronary artery disease, patient had a cardiac catheterization in December 2019, at that time he had mild coronary artery disease 30-40% in LAD and RCA, patient had a global hypokinesia with ejection fraction of 45% patient does not have any history of stent placement or angioplasty, he has a history of cardiac arrhythmia was history of pacemaker placement. Patient had previous history of episodes of acute pancreatitis, he states that he has not been drinking any alcohol however he was at a [employer] last Monday when he had about 10 beers. On review of systems there is no fever or chills no headache or dizziness no shortness of breath no cough, no nausea or vomiting no abdominal pain no diarrh ea no blood in the stools no burning with urination no frequency or urgency and no hematuria there is no weakness or numbness in any of the extremities there is no change in vision speech or gait. Past Medical History Past Medical History: Chest Pain / Angina, GERD/Reflux, Hypertension, Osteoarthritis (OA), Prostate Disorder Additional Past Medical History / Comment(s): hypoglycemia (caused a seizure), BPH, PACEMAKER, KIDNEY STONES. 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 History of Any Multi-Drug Resistant Organisms: None Reported Past Surgical History: Appendectomy, Cholecystectomy, Heart Catheterization, Joint Replacement, Pacemaker Additional Past Surgical History / Comment(s): Cory hip replacement, KIDNEY S TONES, colonoscopy Past Anesthesia/Blood Transfusion Reactions: No Reported Reaction Type of Cardiac Device: Permanent Pacemaker Device Placement Date:: 2013 Past Psychological History: No Psychological Hx Reported Smoking Status: Never smoker Past Alcohol Use History: None Reported Past Drug Use History: Marijuana - Past Family History Sister(s) Family Medical History: Cancer Additional Family Medical History / Comment(s): lymph nodes Mother Family Medical History: COPD, Hypertension Father Family Medical History: COPD Brother(s) Family Medical History: No Reported History Daughter(s) Family Medical History: No Reported History Son(s) Family Medical History: No Reported History Medications and Allergies Home Medications Medication Instructions Recorded Confirmed Type Citalopram Hydrobromide [CeleXA] 40 mg PO DAILY 07/25/14 01/22/20 History Finasteride [Proscar] 5 mg PO DAILY 04/28/17 01/22/20 History HYDROcodone/APAP 7.5-325MG [[place] 1 tab PO BID 10/11/18 01/22/20 History 7.5-325] Diltiazem Cd [Cardizem CD] 180 mg PO DAILY #30 cap.er.24h 10/15/18 01/22/20 Rx Atorvastatin [Lipitor] 40 mg PO DAILY 07/24/21 07/24/21 History Isosorbide Mononitrate ER [Imdur] 60 mg PO DAILY 07/24/21 07/24/21 History Losartan Potassium [Cozaar] 100 mg PO DAILY 07/24/21 07/24/21 History Omeprazole Magnesium [PriLOSEC OTC] 20 mg PO DAILY 07/24/21 07/24/21 History Polyethylene Glycol 3350 [Miralax] 17 gm PO DAILY 07/24/21 07/24/21 History hydrALAZINE HCL [Apresoline] 50 mg PO BID 07/24/21 07/24/21 History hydroCHLOROthiazide [Hydrodiuril] 25 mg PO DAILY 07/24/21 07/24/21 History Allergies Allergy/AdvReac Type Severity Reaction Status Date / Time nickel Allergy Rash/Hives Verified 07/24/21 13:20 Physical Exam Vitals: Vital Signs Temp Pulse Resp BP Pulse Ox 07/24/21 12:00 52 L 18 164/85 96 07/24/21 11:58 51 L 18 164/85 96 07/24/21 11:55 98.1 F 51 L 18 Intake and Output 07/23/21 07/24/21 07/24/21 22:59 06:59 14:59 Other: Weight 127.006 kg In general patient is alert and oriented x 3 in no distress HEENT head normocephalic and atraumatic Neck is supple no JVD no goiter no lymphadenopathy no carotid bruit Chest examination is clear to auscultation no crackles no wheezing Cardiac exam reveals regular heart sounds S1 and S2 no gallops no murmurs Abdomen is soft nontender no organomegaly with normal bowel sounds Extremity exam reveals no edema no cyanosis or clubbing Neurological examination reveals no gross focal deficits Results CBC & Chem 7: 07/24/21 12:01 07/24/21 12:01 Labs: Abnormal Lab Results - Last 24 Hours (Table) 07/24/21 Range/Units 12:01 BUN 28 H (9-20) mg/dL Glucose 131 H (74-99) mg/dL Assessment and Plan Plan: Episode of chest pain, patient has known history of coronary artery disease, we will check serial EKG and cardiac enzymes and consult cardiology Underlying history of coronary artery disease, patient had a cardiac catheterization in December 2019 he was found to mild nonobstructive coronary artery disease, with global hypokinesis and ejection fraction of 45% Underlying history of hypertention Underlying history of hyperlipidemia maintained on Lipitor Underlying history of gastroesophageal reflux disease Underlying history of cardiac arrhythmia with history of pacemaker placement Underlying history of depression Underlying history of degenerative disc disease patient is maintained on hydrocodone for pain management as outpatient Previous history of pancreatitis, at this time with check amylase and lipase Previous history of acute diverticulitis Underlying history of benign prostatic hypertrophy At this time patient is admitted to telemetry floor cardiology consultation is requested Will check echocardiogram with check serial EKG and cardiac enzymes Due to history of pancreatitis will check amylase and lipase For DVT prophylaxis subcu Lovenox Will follow closely during this admission
--- NOTE | 2021-07-24 15:07 | ECHOF ---
Referral Reason:chest pain MEASUREMENTS -------- HEIGHT: 190.5 cm WEIGHT: 127.0 kg BP: 157/80 RVIDd: 4.3 cm (< 3.3) IVSd: 1.7 cm (0.6 - 1.1) LVIDd: 4.5 cm (3.9 - 5.3) LVPWd: 1.6 cm (0.6 - 1.1) IVSs: 2.1 cm LVIDs: 3.1 cm LVPWs: 1.9 cm Ao Diam: 4.0 cm (2.0 - 3.7) AV Cusp: 2.5 cm (1.5 - 2.6) MV EXCURSION: 17.332 mm (> 18.000) MV EF SLOPE: 80 mm/s (70 - 150) EPSS: 0.9 cm MV E Jose Rafael: 0.67 m/s MV DecT: 280 ms MV A Jose Rafael: 0.86 m/s MV E/A Ratio: 0.78 RAP: 5.00 mmHg RVSP: 25.41 mmHg FINDINGS -------- Resting bradycardia (HR<60bpm). This was a technically difficult study with suboptimal views. The left ventricular size is normal. There is moderate concentric left ventricular hypertrophy. O verall left ventricular systolic function is mildly impaired with, an EF between 45 - 50 %. Septal wall motion is delayed, and consistent with ventricular pacing. The right ventricle is moderate to severely enlarged. The left atrium was not well visualized. Electronic pacemaker lead seen in the right atrial cavity. xx ml of Lumason was utilized for enhancement of images. Interatrial and interventricular septum intact. The aortic valve was not well visualized. There is no evidence of aortic regurgitation. There is no evidence of aortic stenosis. The mitral valve was not well visualized. No mitral regurgitation. The tricuspid valve was not well visualized. Mild tricuspid regurgitation present. There is no ev idence of pulmonary hypertension. The right ventricular systolic pressure, as measured by Doppler, is 25.41mmHg. There is no pulmonic regurgitation present. The aortic root size is normal. IVC Not well visulized. Echo free space indicative of a pericardial fat pad. There is no pericardial effusion. CONCLUSIONS -------- 1. Resting bradycardia (HR<60bpm). 2. The left ventricular size is normal. 3. There is moderate concentric left ventricular hypertrophy. 4. Overall left ventricular systolic function is mildly impaired with, an EF between 45 - 50 %. 5. Septal wall motion is delayed, and consistent with ventricular pacing. 6. The right ventricle is moderate to severely enlarged. 7. Mild tricuspid regurgitation present. [employer]: Kiesha Jeronimo RDCS
[2021-07-24] MEDS: hydrALAZINE HCL 50 MG TAB PO SCH (20:58)
[2021-07-25 08:22] VITALS: BP 181/90; PULSE 41; RESP 16; TEMP 97.8
[2021-07-25] MEDS ORDERED: ASPIRIN 325 MG TAB PO SCH (09:00)
[2021-07-25] MEDS ORDERED: hydroCHLOROthiazide 25 MG TAB PO SCH (09:00)
[2021-07-25] MEDS ORDERED: LOSARTAN 50 MG TAB PO SCH (09:00)
[2021-07-25] MEDS ORDERED: PANTOPRAZOLE 40 MG TABLET PO SCH (09:00)
[2021-07-25] MEDS ORDERED: ISOSORBIDE MONONITRATE ER 60 MG TAB.ER.24H PO SCH (09:00)
[2021-07-25] MEDS ORDERED: CITALOPRAM HYDROBROMIDE 20 MG TAB PO SCH (09:00)
[2021-07-25] MEDS ORDERED: ENOXAPARIN 40 MG/0.4 ML SYRINGE SQ SCH (09:00)
[2021-07-25] MEDS ORDERED: DILTIAZEM CD 180 MG CAP.ER.24H PO SCH (09:00)
[2021-07-25] MEDS ORDERED: ATORVASTATIN 40 MG TAB PO SCH (09:00)
[2021-07-25] MEDS ORDERED: FINASTERIDE 5 MG TAB PO SCH (09:00)
[2021-07-25 09:07] LABS: Basophils # (A) 0.05 X 10*3/uL (0.00-0.10); Basophils % (A) 0.6 %; Eosinophils # (A) 0.11 X 10*3/uL (0.04-0.35); Eosinophils % (A) 1.3 %; HGB 13.3 g/dL (13.0-17.0); Immature Grans, Automated 0.2 %; Lymphocytes % (A) 25.1 %; MCH 30.1 pg (27.0-32.0); MCHC 32.4 g/dL (32.0-37.0); MCV 92.8 fL (80.0-97.0); Mean Platelet Volume 9.8 fL (9.5-12.2); Monocytes # (A) 0.82 X 10*3/uL (0.20-1.00); Monocytes % (A) 9.8 %; NRBC Per 100 WBC 0 /100 WBCS (0.0-0.0); Neutrophils # (A) 5.28 X 10*3/uL (1.80-7.70); Platelet Count 280 X 10*3/uL (140-440); RBC 4.42 X 10*6/uL (4.40-5.60); RDW 13.2 % (11.5-14.5); WBC 8.38 X 10*3/uL (4.50-10.00)
[2021-07-25] MEDS: polyethylene glycoL 3350 17 GM POWD.PACK PO SCH (09:09)
[2021-07-25] MEDS: hydrALAZINE HCL 50 MG TAB PO SCH (09:10)
[2021-07-25 09:20] LABS: ALT 19 U/L (10-49); AST 23 U/L (14-35); African American GFR (CKD) 109.6 (60.0-200.0); Albumin/Globulin Ratio 1.52 (1.60-3.17); Alkaline Phosphatase 55 U/L (41-126); BUN/Creat Ratio 31.72 Ratio (12.00-20.00); Blood Urea Nitrogen 23.6 mg/dL (9.0-27.0); Calcium 9.4 mg/dL (8.7-10.3); Carbon Dioxide 25.3 mmol/L (20.0-27.5); Chloride 105 mmol/L (96-109); Chol/HDL Ratio 2.71 Ratio; Globulin 2.7 g/dL (1.6-3.3); Glucose 121 mg/dL (70-110); LDL Cholesterol,Calculated 47.5 mg/dL (0.0-131.0); Non-African American GFR(CKD) 94.6 (60.0-200.0); Potassium 4.6 mmol/L (3.5-5.5); Sodium 138 mmol/L (135-145); Total Protein 6.7 g/dL (6.2-8.2)
--- NOTE | 2021-07-25 10:52 | P.PN ---
Subjective Progress Note Date: 07/25/21 Ramírez Salter, is a 70-year-old male who presented to [facility] emergency room with a chief complaint of chest pain, patient stated that he was sitting on a bench watching his grandson wrestling when he started feeling a squeezing pain in the lower sternal area radiating up to his chest and up to his neck and jaw pain lasted about 30 minutes and was relieved when he was given aspirin by the EMS. He was evaluated in the emergency room vital examination on presentation revealed a temperature of 98.1 pulse 51 respiration 18 blood pressure 164/85 pulse ox 96% on room air Laboratory data revealed a white blood count of 8.2 hemoglobin 14.0 platelet count 304 sodium 139 potassium 4.0 chloride 106 CO2 25 BUN 28 creatinine 0.78 glucose level was 131 troponin level was 0.012 Testing in the emergency room revealed chest x-ray done in the emergency room revealed no acute process EKG done in the emergency room revealed sinus bradycardia with heart rate of 45 otherwise no acute abnormality Patient was admitted to telemetry floor for further evaluation and treatment, cardiology consultation was requested Past medical history is significant for history of hypertension, history of coronary artery disease, patient had a cardiac catheterization in December 2019, at that time he had mild coronary artery disease 30-40% in LAD and RCA, patient had a global hypokinesia with ejection fraction of 45% patient does not have any history of stent placement or angioplasty, he has a history of cardiac arrhythmia was history of pacemaker placement. 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 On review of systems there is no fever or chills no headache or dizziness no shortness of breath no cough, no nausea or vomiting no abdominal pain no diarrhea no blood in the stools no burning with urination no frequency or urgency and no hematuria there is no weakness or numbness in any of the extremities there is no change in vision speech or gait. On 05/24/2022 patient was seen and examined on the medical floor he is alert and oriented 3 in no apparent distress there is no fever or chills no headache or dizziness no chest pain no shortness of breath no cough no nausea or vomiting no abdominal pain no diarrhea no blood in the stools no burning with urination no frequency or urgency and no hematuria. There is no weakness or numbness in any of the extremities there is no change in vision speech or gait. At this time patient denies having any new episodes of chest pain since presentation, troponin level 3 are negative, amylase and lipase are within normal limits, we are waiting for cardiology input. Objective - Vital Signs Vital signs: Vital Signs Temp 97.6 F 07/25/21 02:03 Pulse 48 L 07/25/21 02:03 Resp 18 07/25/21 02:03 BP 177/65 07/25/21 02:03 Pulse Ox 99 07/25/21 02:03 Intake & Output 07/24/21 07/25/21 07/25/21 18:59 06:59 18:59 Intake Total 236 500 Balance 236 500 Weight 127.006 kg Intake: Oral 236 500 Other: Voiding Method Toilet # Voids 1 2 - Exam In general patient is alert and oriented x 3 in no distress HEENT head normocephalic and atraumatic Neck is supple no JVD no goiter no lymphadenopathy no carotid bruit Chest examination is clear to auscultation no crackles no wheezing Cardiac exam reveals regular heart sounds S1 and S2 no gallops no murmurs Abdomen is soft nontender no organomegaly with normal bowel sounds Extremity exam reveals no edema no cyanosis or clubbing Neurological examination reveals no gross focal deficits - Labs CBC & Chem 7: 07/25/21 05:55 07/25/21 05:55 Labs: Abnormal Lab Results - Last 24 Hours (Table) 07/24/21 Range/Units 12:01 BUN 28 H (9-20) mg/dL Glucose 131 H (74-99) mg/dL Assessment and Plan Plan: Episode of chest pain, patient has known history of coronary artery disease, we will check serial EKG and cardiac enzymes and consult cardiology Underlying history of coronary artery disease, patient had a cardiac catheterization in December 2019 he was found to mild nonobstructive coronary artery disease, with global hypokinesis and ejection fraction of 45% Underlying history of hypertention Underlying history of hyperlipidemia maintained on Lipitor Underlying history of gastroesophageal reflux disease Underlying history of cardiac arrhythmia with history of pacemaker placement Underlying history of depression Underlying history of degenerative disc disease patient is maintained on hydrocodone for pain management as outpatient Previous history of pancreatitis, at this time with check amylase and lipase Previous history of acute diverticulitis Underlying history of benign prostatic hypertrophy At this time patient is admitted to telemetry floor cardiology consultation is requested Will check echocardiogram with check serial EKG and cardiac enzymes Due to history of pancreatitis will check amylase and lipase For DVT prophylaxis subcu Lovenox Will follow closely during this admission
--- NOTE | 2021-07-25 12:15 | P.CRDCN ---
History of Present Illness History of present illness: HISTORY OF PRESENTING ILLNESS This is a pleasant 70-year-old male past medical history significant for non-obstructive CAD, bradycardia s/p PPM ([employer]), hypertension and dyslipidemia. He follows in the office with Dr. Montes. We have been asked to see in consultation for chest pain. He states yesterday he was at his [employer] tournament and had a tight squeezing sensation in his chest. He was short of breath as well. He has had the pain before frequently and usually takes nitro and it improves, however he was out of nitro tablets. He takes daily imdur as well. He is currently chest pain free. He had a cath 12/2019 that revealed a 30-40% lesion in the mid LAD. An echo taken yesterday revealed EF 45-50% with a severely enlarged RV. EKG sinus bradycardia heart rate 45. Chest x-ray is negative for an acute cardiopulmonary process. Laboratory data reviewed, CBC unremarkable, sodiun 138, potassium 4.6, creatinine 0.7, magnesium 2.0, troponin negative x3, LDL 47. Current daily cardiac medications include imdur 30 mg daily, hydralazine 50 mg twice a day, atorvastatin 40 mg daily, hydrochlorothiazide 25 mg daily, losartan 100 mg daily and diltiazem 180 mg daily. Telemetry reveals paced REVIEW OF SYSTEMS At the time of my exam: CONSTITUTIONAL: Denies fever or chills. CARDIOVASCULAR: Denies chest pain, shortness of breath, orthopnea, PND or palpitations. RESPIRATORY: Denies cough. GASTROINTESTINAL: Denies abdominal pain, diarrhea, constipation, nausea or vomiting. MUSCULOSKELETAL: Denies myalgias. NEUROLOGIC: Denies numbness, tingling, headache or weakness. ENDOCRINE: Denies fatigue, weight change, polydipsia or polyurina. GENITOURINARY: Denies burning, hematuria or urgency with micturation. HEMATOLOGIC: Denies history of anemia or bleeding. PHYSICAL EXAMINATION Blood pressure 181/90 heart rate 41 afebrile and maintaining oxygen saturation on room air. CONSTITUTIONAL: No apparent distress. HEENT: Head is normocephalic. Pupils are equal, round. Sclerae anicteric. Mucous membranes of the mouth are moist. No JVD. No carotid bruit. CHEST EXAMINATION: Lungs are clear to auscultation. No chest wall tenderness is noted on palpation or with deep breathing. HEART EXAMINATION: Regular rate and rhythm. S1, S2 heard. No murmurs, gallops or rub. ABDOMEN: Soft, nontender. EXTREMITIES: 2+ peripheral pulses, no lower extremity edema and no calf tenderness. NEUROLOGIC EXAMINATION: Patient is awake, alert and oriented x3. ASSESSMENT Chest pain Permanent pacemaker implantation Hypertension PLAN An acute coronary event has been ruled out. Symptoms sound like esophageal spasm, recommend outpatient GI evaluation. We will discuss him also with Dr. Montes tomorrow and have him seen in the office after discharge. Thank you kindly for this consultation. Nurse Practitioner note has been reviewed, I agree with a documented findings and plan of care. Patient was seen and examined. Past Medical History Past Medical History: Chest Pain / Angina, GERD/Reflux, Hypertension, Osteoarthritis (OA), Prostate Disorder Additional Past Medical History / Comment(s): hypoglycemia (caused a seizure), BPH, PACEMAKER, KIDNEY STONES. 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 History of Any Multi-Drug Resistant Organisms: None Reported Past Surgical History: Appendectomy, Cholecystectomy, Heart Catheterization, Joint Replacement, Pacemaker Additional Past Surgical History / Comment(s): Cory hip replacement, KIDNEY STONES, colonoscopy Past Anesthesia/Blood Transfusion Reactions: No Reported Reaction Type of Cardiac Device: Permanent Pacemaker Device Placement Date:: 2013 Past Psychological History: No Psychological Hx Reported Smoking Status: Never smoker Past Alcohol Use History: None Reported Past Drug Use History: Marijuana - Past Family History Sister(s) Family Medical History: Cancer Additional Family Medical History / Comment(s): lymph nodes Mother Family Medical History: COPD, Hypertension Father Family Medical History: COPD Brother(s) Family Medical History: No Reported History Daughter(s) Family Medical History: No Reported History Son(s) Family Medical History: No Reported History Medications and Allergies Home Medications Medication Instructions Recorded Confirmed Type Citalopram Hydrobromide [CeleXA] 40 mg PO DAILY 07/25/14 07/24/21 History Finasteride [Proscar] 5 mg PO DAILY 04/28/17 07/24/21 History HYDROcodone/APAP 7.5-325MG [[place] 1 tab PO TID PRN 10/11/18 07/24/21 History 7.5-325] Diltiazem Cd [Cardizem CD] 180 mg PO DAILY #30 cap.er.24h 10/15/18 07/24/21 Rx Atorvastatin [Lipitor] 40 mg PO DAILY 07/24/21 07/24/21 History Isosorbide Mononitrate ER [Imdur] 60 mg PO DAILY 07/24/21 07/24/21 History Losartan Potassium [Cozaar] 100 mg PO DAILY 07/24/21 07/24/21 History Omeprazole Magnesium [PriLOSEC OTC] 20 mg PO DAILY 07/24/21 07/24/21 History Polyethylene Glycol 3350 [Miralax] 17 gm PO DAILY 07/24/21 07/24/21 History hydrALAZINE HCL [Apresoline] 50 mg PO BID 07/24/21 07/24/21 History hydroCHLOROthiazide [Hydrodiuril] 25 mg PO DAILY 07/24/21 07/24/21 History Aspirin 325 mg PO DAILY tab 07/25/21 Rx Nitroglycerin Sl Tabs [Nitrostat] 0.4 mg SUBLINGUAL Q5M PRN tab 07/25/21 Rx Allergies Allergy/AdvReac Type Severity Reaction Status Date / Time nickel Allergy Rash/Hives Verified 07/24/21 13:20 Physical Exam Vitals: Vital Signs Temp Pulse Pulse Resp BP BP BP 07/25/21 07:05 97.8 F 41 L 16 181/90 07/25/21 02:03 97.6 F 48 L 18 177/65 07/25/21 02:00 47 L 07/24/21 20:00 98.2 F 47 L 18 149/75 07/24/21 19:54 40 L 16 07/24/21 15:00 97.8 F 40 L 16 199/91 07/24/21 14:00 98.2 F 45 L 20 167/89 07/24/21 13:00 46 L 18 157/80 07/24/21 12:00 52 L 18 164/85 07/24/21 11:58 51 L 18 164/85 07/24/21 11:55 98.1 F 51 L 18 Pulse Ox 07/25/21 07:05 98 07/25/21 02:03 99 07/25/21 02:00 07/24/21 20:00 99 07/24/21 19:54 07/24/21 15:00 100 07/24/21 14:00 98 07/24/21 13:00 96 07/24/21 12:00 96 07/24/21 11:58 96 07/24/21 11:55 Intake and Output 07/24/21 07/25/21 07/25/21 22:59 06:59 14:59 Intake Total 736 0 Balance 736 0 Intake: Oral 736 0 Other: Voiding Method Toilet # Voids 2 Results 07/25/21 05:55 07/25/21 05:55 Cardiac Enzymes 07/24/21 07/24/21 07/24/21 Range/Units 12:01 15:14 19:05 AST (14-35) U/L Troponin I 0.012 <0.012 0.013 (0.000-0.034) ng/mL 07/25/21 Range/Units 05:55 AST 23 (14-35) U/L Troponin I (0.000-0.034) ng/mL Coagulation 07/24/21 Range/Units 12:01 PT 11.0 (9.0-12.0) sec APTT 23.1 (22.0-30.0) sec Lipids 07/25/21 Range/Units 05:55 Triglycerides 100.00 (0.00-149.00) mg/dL Cholesterol 107.00 (0.00-200.00) mg/dL HDL Cholesterol 39.50 L (40.00-60.00) mg/dL Cholesterol/HDL Ratio 2.71 Ratio CBC 07/24/21 07/25/21 Range/Units 12:01 05:55 WBC 8.2 8.38 (3.8-10.6) k/uL RBC 4.45 4.42 (4.30-5.90) m/uL Hgb 14.0 13.3 (13.0-17.5) gm/dL Hct 41.6 41.0 (39.0-53.0) % Plt Count 304 280 (150-450) k/uL Comprehensive Metabolic Panel 07/24/21 07/25/21 Range/Units 12:01 05:55 Sodium 139 138 (137-145) mmol/L Potassium 4.0 4.6 (3.5-5.1) mmol/L Chloride 106 105 (98-107) mmol/L Carbon Dioxide 25 25.3 (22-30) mmol/L BUN 28 H 23.6 (9-20) mg/dL Creatinine 0.78 0.7 (0.66-1.25) mg/dL Glucose 131 H 121 H (74-99) mg/dL Calcium 9.6 9.4 (8.4-10.2) mg/dL AST 23 (14-35) U/L ALT 19 (10-49) U/L Alkaline Phosphatase 55 (41-126) U/L Total Protein 6.7 (6.2-8.2) g/dL Albumin 4.0 (3.8-4.9) g/dL Current Medications Generic Name Dose Route Start Last Admin Trade Name Freq PRN Reason Stop Dose Admin Hydrocodone Bitart/Acetaminophen 1 each 07/24/21 13:55 Hydrocodone/Apap 7.5-325mg 1 Each Tab PO TID PRN Pain Aspirin 325 mg 07/25/21 09:00 07/25/21 09:10 Aspirin 325 Mg Tab PO 325 mg DAILY BRYCE Administration Atorvastatin Calcium 40 mg 07/25/21 09:00 07/25/21 09:09 Atorvastatin 40 Mg Tab PO 40 mg DAILY BRYCE Administration Citalopram Hydrobromide 40 mg 07/25/21 09:00 07/25/21 09:09 Citalopram Hydrobromide 20 Mg Tab PO 40 mg DAILY BRYCE Administration Diltiazem HCl 180 mg 07/25/21 09:00 07/25/21 09:10 Diltiazem Cd 180 Mg Cap.Er.24h PO 180 mg DAILY BRYCE Administration Enoxaparin Sodium 40 mg 07/25/21 09:00 07/25/21 09:09 Enoxaparin 40 Mg/0.4 Ml Syringe SQ 40 mg DAILY BRYCE Administration Finasteride 5 mg 07/25/21 09:00 07/25/21 09:10 Finasteride 5 Mg Tab PO 5 mg DAILY BRYCE Administration Hydralazine HCl 50 mg 07/24/21 21:00 07/25/21 09:10 Hydralazine Hcl 50 Mg Tab PO 50 mg BID BRYCE Administration Hydrochlorothiazide 25 mg 07/25/21 09:00 07/25/21 09:10 Hydrochlorothiazide 25 Mg Tab PO 25 mg DAILY BRYCE Administration Isosorbide Mononitrate 60 mg 07/25/21 09:00 07/25/21 09:10 Isosorbide Mononitrate Er 60 Mg Tab.Er.24h PO 60 mg DAILY BRYCE Administration Losartan Potassium 100 mg 07/25/21 09:00 07/25/21 09:09 Losartan 50 Mg Tab PO 100 mg DAILY BRYCE Administration Nitroglycerin 0.4 mg 07/24/21 13:08 Nitroglycerin Sl Tabs 0.4 Mg Tab SUBLINGUAL Q5M PRN Chest Pain Pantoprazole Sodium 40 mg 07/25/21 09:00 07/25/21 09:09 Pantoprazole 40 Mg Tablet PO 40 mg DAILY BRYCE Administration Polyethylene Glycol 17 gm 07/25/21 09:00 07/25/21 09:09 Polyethylene Glycol 3350 17 Gm Powd.Pack PO 17 gm DAILY BRYCE Administration Intake and Output 07/24/21 07/25/21 07/25/21 22:59 06:59 14:59 Intake Total 736 0 Balance 736 0 Intake: Oral 736 0 Other: Voiding Method Toilet # Voids 2 07/25/21 05:55 07/25/21 05:55
--- NOTE | 2021-07-27 19:47 | P.DS ---
Providers Date of admission: 07/24/21 13:08 Expected date of discharge: 07/27/21 Attending physician: Justice Nair Consults: 07/24/21 13:08 Consult Physician Urgent Consulting Provider: Arturo Montes Consult Reason/Comments: chest pain Do you want consulting provider notified?: Yes Primary care physician: Justice [facility] Course: Diagnosis on discharge: Episode of chest pain, patient has known history of coronary artery disease, we will check serial EKG and cardiac enzymes and consult cardiology Underlying history of coronary artery disease, patient had a cardiac catheterization in December 2019 he was found to mild nonobstructive coronary artery disease, with global hypokinesis and ejection fraction of 45% Underlying history of hypertention Underlying history of hyperlipidemia maintained on Lipitor Underlying history of gastroesophageal reflux disease Underlying history of cardiac arrhythmia with history of pacemaker placement Underlying history of depression Underlying history of degenerative disc disease patient is maintained on hydrocodone for pain management as outpatient Previous history of pancreatitis, at this time with check amylase and lipase Previous history of acute diverticulitis Underlying history of benign prostatic hypertrophy Hospital course: Ramírez Salter, is a 70-year-old male who presented to [facility] emergency room with a chief complaint of chest pain, patient stated that he was sitting on a bench watching his grandson wrestling when he started feeling a squeezing pain in the lower sternal area radiating up to his chest and up to his neck and jaw pain lasted about 30 minutes and was relieved when he was given aspirin by the EMS. He was evaluated in the emergency room vital examination on presentation revealed a temperature of 98.1 pulse 51 respiration 18 blood pressure 164/85 pulse ox 96% on room air Laboratory data revealed a white blood count of 8.2 hemoglobin 14.0 platelet count 304 sodium 139 potassium 4.0 chloride 106 CO2 25 BUN 28 creatinine 0.78 glucose level was 131 troponin level was 0.012 Testing in the emergency room revealed chest x-ray done in the emergency room revealed no acute process EKG done in the emergency room revealed sinus bradycardia with heart rate of 45 otherwise no acute abnormality Patient was admitted to telemetry floor for further evaluation and treatment, cardiology consultation was requested Past medical history is significant for history of hypertension, history of coronary artery disease, patient had a cardiac catheterization in December 2019, at that time he had mild coronary artery disease 30-40% in LAD and RCA, patient had a global hypokinesia with ejection fraction of 45% patient does not have any history of stent placement or angioplasty, he has a history of cardiac arrhythmia was history of pacemaker placement. Patient had previous history of episodes of acute pancreatitis, he states that he has not been drinking any alcohol however he was at a green party last Monday when he had about 10 beers. On review of systems there is no fever or chills no headache or dizziness no shortness of breath no cough, no nausea or vomiting no abdominal pain no diarrhea no blood in the stools no burning with urination no frequency or urgency and no hematuria there is no weakness or numbness in any of the extremities there is no change in vision speech or gait. On 07/25/2021 patient was seen and examined on the medical floor he is alert and oriented 3 in no apparent distress 3 sets of cardiac enzymes are negative patient did not have any recurrence of his chest pain he was evaluated by cardiology and was cleared for discharge he will be followed by cardiology in the office for further evaluation and treatment as outpatient Patient Condition at Discharge: Critical Plan - Discharge Summary Discharge Rx Participant: No New Discharge Prescriptions: New Aspirin 325 mg PO DAILY tab Nitroglycerin Sl Tabs [Nitrostat] 0.4 mg SUBLINGUAL Q5M PRN tab PRN Reason: Chest Pain Continue Citalopram Hydrobromide [CeleXA] 40 mg PO DAILY Finasteride [Proscar] 5 mg PO DAILY HYDROcodone/APAP 7.5-325MG [Hia[place]atha 7.5-325] 1 tab PO TID PRN PRN Reason: Pain Diltiazem Cd [Cardizem CD] 180 mg PO DAILY #30 cap.er.24h Polyethylene Glycol 3350 [Miralax] 17 gm PO DAILY Omeprazole Magnesium [PriLOSEC OTC] 20 mg PO DAILY Losartan Potassium [Cozaar] 100 mg PO DAILY Isosorbide Mononitrate ER [Imdur] 60 mg PO DAILY hydroCHLOROthiazide [Hydrodiuril] 25 mg PO DAILY hydrALAZINE HCL [Apresoline] 50 mg PO BID Atorvastatin [Lipitor] 40 mg PO DAILY Discharge Medication List Citalopram Hydrobromide [CeleXA] 40 mg PO DAILY 07/25/14 [History] Finasteride [Proscar] 5 mg PO DAILY 04/28/17 [History] HYDROcodone/APAP 7.5-325MG [Hiawatha 7.5-325] 1 tab PO TID PRN 10/11/18 [History] Diltiazem Cd [Cardizem CD] 180 mg PO DAILY #30 cap.er.24h 10/15/18 [Rx] Atorvastatin [Lipitor] 40 mg PO DAILY 07/24/21 [History] Isosorbide Mononitrate ER [Imdur] 60 mg PO DAILY 07/24/21 [History] Losartan Potassium [Cozaar] 100 mg PO DAILY 07/24/21 [History] Omeprazole Magnesium [PriLOSEC OTC] 20 mg PO DAILY 07/24/21 [History] Polyethylene Glycol 3350 [Miralax] 17 gm PO DAILY 07/24/21 [History] hydrALAZINE HCL [Apresoline] 50 mg PO BID 07/24/21 [History] hydroCHLOROthiazide [Hydrodiuril] 25 mg PO DAILY 07/24/21 [History] Aspirin 325 mg PO DAILY tab 07/25/21 [Rx] Nitroglycerin Sl Tabs [Nitrostat] 0.4 mg SUBLINGUAL Q5M PRN tab 07/25/21 [Rx] Follow up Appointment(s)/Referral(s): Arturo Montes DO [STAFF PHYSICIAN] - 1 Week Justice Nair MD [Primary Care Provider] - 1-2 days Patient Instructions/Handouts: Acute Coronary Syndrome (DC) Discharge Disposition: HOME SELF-CARE
== END 2021-07-25 12:42 | disposition home or self-care (01) ==
LOC: EC 11:39 → 6NMEDSUR 13:08
PROVIDERS: ADMIT Internal Medicine; ATTEND Internal Medicine
DX: R07.89 Other chest pain (principal); I25.10 Atherosclerotic heart disease of native coronary artery without angina pectoris; I11.9 Hypertensive heart disease without heart failure; R00.1 Bradycardia, unspecified; I07.1 Rheumatic tricuspid insufficiency; Z95.0 Presence of cardiac pacemaker; K21.9 Gastro-esophageal reflux disease without esophagitis; N40.0 Benign prostatic hyperplasia without lower urinary tract symptoms; E16.2 Hypoglycemia, unspecified; E78.5 Hyperlipidemia, unspecified; R11.0 Nausea; R61 Generalized hyperhidrosis; K57.90 Diverticulosis of intestine, part unspecified, without perforation or abscess without bleeding; F32.A Depression, unspecified; Z79.899 Other long term (current) drug therapy; Z91.048 Other nonmedicinal substance allergy status; Z87.442 Personal history of urinary calculi; Z90.49 Acquired absence of other specified parts of digestive tract; Z96.643 Presence of artificial hip joint, bilateral; Z87.19 Personal history of other diseases of the digestive system; Z86.010 Personal history of colon polyps; Z86.69 Personal history of other diseases of the nervous system and sense organs; Z98.890 Other specified postprocedural states; Z82.49 Family history of ischemic heart disease and other diseases of the circulatory system; Z82.5 Family history of asthma and other chronic lower respiratory diseases; Z80.7 Family history of other malignant neoplasms of lymphoid, hematopoietic and related tissues
CPT/HCPCS: 96372; 99285; 36415; 93005; 80061; 80053; 80048; 82150; 83690; 83735; 84484; 85025 ×2; 85610; 85730; 71045; G0378 ×2; C8929; S0138; J1650; Q9950; 93306

== ENCOUNTER → 2022-03-01 | Outpatient (CLI) | payer MEDICARE ==
[2022-03-01 14:14] LABS: African American GFR (CKD) >90 (>60 ml/min/1.73 sqM); Blood Urea Nitrogen 30 mg/dL (9-20); Non-African American GFR(CKD) 90 (>60 ml/min/1.73 sqM)
--- NOTE | 2022-03-01 14:47 | CT ---
EXAMINATION TYPE: CT soft tissue neck w con CT DLP: 633 mGycm, Automated exposure control for dose reduction was used. DATE OF EXAM: 03/01/2022 2:35 PM COMPARISON: CT neck 08/16/2018. CLINICAL INDICATION:Male, 71 years old with history of R22.1 LOCALIZED SWELLING, MASS AND LUMP, NECK; PHH, lump to right side of neck TECHNIQUE: Standard enhanced CT of the neck following intravenous administration of 70 cc of Isovue 3 00. Axial sections with coronal and sagittal reformats were obtained. FINDINGS: Dental amalgam creates streak artifact which limits evaluation. Brain: Visualized portions are grossly unremarkable. Orbits: Unremarkable Sinuses: Minimal mucosal thickening of the left maxillary sinus. Suprahyoid Neck: The oropharynx, oral cavity, parapharyngeal and retropharyngeal spaces are clear and symmetric. The nasopharynx is unremarkable. Infrahyoid Neck: The larynx, hypopharynx, and supraglottic area are clear and symmetric. Parotid Glands: The left parotid gland is unremarkable. Relatively unchanged solid mass measuring 1.6 x 1.8 x 1.4 cm along the superficial lobe of the right parotid gland. This is at the site of localiz er BB. Submandibular Glands: Unremarkable. Musculoskeletal: Degenerative disc disease changes of the visualized spine are present. Lymph nodes: Multiple nonenlarged lymph nodes are seen along both anterior chains of the neck. Vascular structures: Minimal atherosclerotic calcifications of the internal carotid arteries. Thoracic Inlet/airway: Airway is patent. The lung apices are clear. Soft tissues/Thyroid: Thyroid and remainder of the soft tissues are unremarkable. Other: none. IMPRESSION Relatively unchanged 1.8 cm solid mass adjacent to or arising from the superficial lobe of the right parotid gland from prior examination in 2019. Ultrasound with tissue sampling is recommended if not a lready performed.
== END | disposition home or self-care (01) ==
LOC: RADCTMAIN 13:37
PROVIDERS: ATTEND Otolaryngology
DX: R22.1 Localized swelling, mass and lump, neck (principal); K11.8 Other diseases of salivary glands
CPT/HCPCS: 82565; 84520; 70491; 36415; Q9967

== ENCOUNTER 2023-02-08 11:17 | Emergency (ER) | payer MEDICARE ==
--- NOTE | 2023-02-08 11:28 | ED ---
General Adult HPI - General Source: patient, RN notes reviewed Mode of arrival: ambulatory Limitations: no limitations <Tommy Bryson - Last Filed: 02/08/23 11:26> <Parish Singh - Last Filed: 02/08/23 17:31> - General Stated complaint: Abn labs Time Seen by Provider: 02/08/23 11:27 - History of Present Illness Initial comments: 72-year-old male presents emergency Department from PCPs office for evaluation of bradycardia. Patient states he had an event other day. Did not feel all his blood pressure is very elevated. Patient had an EKG at his office visit showing heart rate of 40. Patient is on metoprolol. Patient does see cardiology. (Tommy Bryson) - Related Data Home Medications Medication Instructions Recorded Confirmed Citalopram Hydrobromide [CeleXA] 40 mg PO DAILY 07/25/14 02/08/23 Finasteride [Proscar] 5 mg PO DAILY 04/28/17 02/08/23 HYDROcodone/APAP 7.5-325MG [Sophia 1 tab PO BID PRN 10/11/18 02/08/23 7.5-325] Atorvastatin [Lipitor] 40 mg PO DAILY 07/24/21 02/08/23 Isosorbide Mononitrate ER [Imdur] 60 mg PO DAILY 07/24/21 02/08/23 Losartan Potassium [Cozaar] 100 mg PO DAILY 07/24/21 02/08/23 ARIPiprazole [Abilify] 2 mg PO DAILY 02/08/23 02/08/23 Furosemide [Lasix] 40 mg PO DAILY 02/08/23 02/08/23 Metoprolol Succinate [Metoprolol 25 mg PO DAILY 02/08/23 02/08/23 Succinate ER] Tamsulosin [Flomax] 0.4 mg PO DAILY 02/08/23 02/08/23 Triamcinolone 0.1% Cream [Kenalog 1 applicatio TOPICAL BID PRN 02/08/23 02/08/23 0.1% Cream] Previous Rx's Medication Instructions Recorded Nitroglycerin Sl Tabs [Nitrostat] 0.4 mg SUBLINGUAL Q5M PRN tab 07/25/21 Allergies Allergy/AdvReac Type Severity Reaction Status Date / Time nickel Allergy Rash/Hives Verified 02/08/23 16:39 Review of Systems ROS Other: All systems not noted in ROS Statement are negative. <Tommy Bryson - Last Filed: 02/08/23 11:26> ROS Other: All systems not noted in ROS Statement are negative. <JorjecaritoParish Josiane - Last Filed: 02/08/23 17:31> ROS Statement: Those systems with pertinent positive or pertinent negative responses have been documented in the HPI. Past Medical History Past Medical History: Chest Pain / Angina, GERD/Reflux, Hypertension, Osteoarthritis (OA), Prostate Disorder Additional Past Medical History / Comment(s): hypoglycemia (caused a seizure), BPH, PACEMAKER, KIDNEY STONES. 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 History of Any Multi-Drug Resistant Organisms: None Reported Past Surgical History: Appendectomy, Cholecystectomy, Heart Catheterization, Joint Replacement, Pacemaker Additional Past Surgical History / Comment(s): Cory hip replacement, KIDNEY STONES, colonoscopy Past Anesthesia/Blood Transfusion Reactions: No Reported Reaction Type of Cardiac Device: Permanent Pacemaker Device Placement Date:: 2013 Past Psychological History: No Psychological Hx Reported Smoking Status: Never smoker Past Alcohol Use History: None Reported Past Drug Use History: Marijuana - Past Family History Sister(s) Family Medical History: Cancer Additional Family Medical History / Comment(s): lymph nodes Mother Family Medical History: COPD, Hypertension Father Family Medical History: COPD Brother(s) Family Medical History: No Reported History Daughter(s) Family Medical History: No Reported History Son(s) Family Medical History: No Reported History <Tommy Bryson - Last Filed: 02/08/23 11:26> General Exam <Tommy Bryson - Last Filed: 02/08/23 11:26> - General Exam Comments Initial Comments: Visual Physical Exam Vital signs reviewed General: Well-appearing, nontoxic, no acute distress. Head: Normocephalic, atraumatic Eyes: PERRLA, EOMI ENT: Airway patent Chest: Nonlabored breathing Skin: No visual rash, normal skin tone Neuro: Alert and oriented 3 Musculoskeletal: No gross abnormalities (Tommy Bryson) Course Vital Signs 02/08/23 11:56 Temperature 97.0 F L Pulse Rate 41 L Respiratory 18 Rate Blood Pressure 126/73 O2 Sat by Pulse 98 Oximetry Medical Decision Making - Lab Data Result diagrams: 02/08/23 12:23 02/08/23 12:23 <Parish Singh - Last Filed: 02/08/23 17:31> - Lab Data Lab Results 02/08/23 02/08/23 02/08/23 Range/Units 12:23 12:23 12:23 WBC 15.5 H (3.8-10.6) k/uL RBC 4.63 (4.30-5.90) m/uL Hgb 14.4 (13.0-17.5) gm/dL Hct 42.8 (39.0-53.0) % MCV 92.5 (80.0-100.0) fL MCH 31.1 (25.0-35.0) pg MCHC 33.7 (31.0-37.0) g/dL RDW 13.6 (11.5-15.5) % Plt Count 317 (150-450) k/uL MPV 7.7 Neutrophils % 75 % Lymphocytes % 15 % Monocytes % 7 % Eosinophils % 1 % Basophils % 0 % Neutrophils # 11.7 H (1.3-7.7) k/uL Lymphocytes # 2.3 (1.0-4.8) k/uL Monocytes # 1.1 H (0-1.0) k/uL Eosinophils # 0.2 (0-0.7) k/uL Basophils # 0.0 (0-0.2) k/uL PT 11.3 (9.0-12.0) sec INR 1.1 (<1.2) APTT 23.2 (22.0-30.0) sec Sodium 138 (137-145) mmol/L Potassium 4.5 (3.5-5.1) mmol/L Chloride 102 (98-107) mmol/L Carbon Dioxide 31 H (22-30) mmol/L Anion Gap 5 mmol/L BUN 31 H (9-20) mg/dL Creatinine 0.77 (0.66-1.25) mg/dL Est GFR (CKD-EPI)AfAm >90 (>60 ml/min/1.73 sqM) Est GFR (CKD-EPI)NonAf >90 (>60 ml/min/1.73 sqM) Glucose 99 (74-99) mg/dL Calcium 9.9 (8.4-10.2) mg/dL Magnesium 2.1 (1.6-2.3) mg/dL Total Bilirubin 0.8 (0.2-1.3) mg/dL AST 27 (17-59) U/L ALT 27 (4-49) U/L Alkaline Phosphatase 63 (38-126) U/L Troponin I (0.000-0.034) ng/mL NT-Pro-B Natriuret Pep 1430 pg/mL Total Protein 7.6 (6.3-8.2) g/dL Albumin 4.2 (3.5-5.0) g/dL 02/08/23 Range/Units 12:23 WBC (3.8-10.6) k/uL RBC (4.30-5.90) m/uL Hgb (13.0-17.5) gm/dL Hct (39.0-53.0) % MCV (80.0-100.0) fL MCH (25.0-35.0) pg MCHC (31.0-37.0) g/dL RDW (11.5-15.5) % Plt Count (150-450) k/uL MPV Neutrophils % % Lymphocytes % % Monocytes % % Eosinophils % % Basophils % % Neutrophils # (1.3-7.7) k/uL Lymphocytes # (1.0-4.8) k/uL Monocytes # (0-1.0) k/uL Eosinophils # (0-0.7) k/uL Basophils # (0-0.2) k/uL PT (9.0-12.0) sec INR (<1.2) APTT (22.0-30.0) sec Sodium (137-145) mmol/L Potassium (3.5-5.1) mmol/L Chloride (98-107) mmol/L Carbon Dioxide (22-30) mmol/L Anion Gap mmol/L BUN (9-20) mg/dL Creatinine (0.66-1.25) mg/dL Est GFR (CKD-EPI)AfAm (>60 ml/min/1.73 sqM) Est GFR (CKD-EPI)NonAf (>60 ml/min/1.73 sqM) Glucose (74-99) mg/dL Calcium (8.4-10.2) mg/dL Magnesium (1.6-2.3) mg/dL Total Bilirubin (0.2-1.3) mg/dL AST (17-59) U/L ALT (4-49) U/L Alkaline Phosphatase (38-126) U/L Troponin I <0.012 (0.000-0.034) ng/mL NT-Pro-B Natriuret Pep pg/mL Total Protein (6.3-8.2) g/dL Albumin (3.5-5.0) g/dL Disposition <Tommy Bryson - Last Filed: 02/08/23 11:26> Is patient prescribed a controlled substance at d/c from ED?: No Time of Disposition: 17:30 <Parish Singh - Last Filed: 02/08/23 17:31> Clinical Impression: Bradycardia, Chest pain Disposition: HOME SELF-CARE Condition: Good Instructions (If sedation given, give patient instructions): Chest Pain (ED) Referrals: Justice Nair MD [Primary Care Provider] - 1-2 days Sarah Cheek MD [STAFF PHYSICIAN] - 1-2 days
[2023-02-08 12:00] VITALS: RESP 18
--- NOTE | 2023-02-08 12:18 | XR ---
EXAMINATION TYPE: XR chest 2V DATE OF EXAM: 02/08/2023 COMPARISON: 07/24/2021 TECHNIQUE: PA and lateral views submitted. HISTORY: Chest pain FINDINGS: The lungs are clear and there is no pneumothorax, pleural effusion, or focal pneumonia. Heart size normal and no overt failure. Osseous structures demonstrate hypertrophic and degenerative. Elevated l eft hemidiaphragm. Changes of the spine. AC joint arthropathy. Stable cardiac device. Biapical pleura l thickening. IMPRESSION: 1. No acute process.
[2023-02-08 12:50] LABS: Basophils % (A) 0 %; Eosinophils # (A) 0.2 k/uL (0-0.7); Eosinophils % (A) 1 %; HCT 42.8 % (39.0-53.0); HGB 14.4 gm/dL (13.0-17.5); Lymphocytes # (A) 2.3 k/uL (1.0-4.8); Lymphocytes % (A) 15 %; MCH 31.1 pg (25.0-35.0); MCHC 33.7 g/dL (31.0-37.0); MCV 92.5 fL (80.0-100.0); Mean Platelet Volume 7.7; Monocytes # (A) 1.1 k/uL (0-1.0); Monocytes % (A) 7 %; Neutrophils # (A) 11.7 k/uL (1.3-7.7); Neutrophils % (A) 75 %; Platelet Count 317 k/uL (150-450); RBC 4.63 m/uL (4.30-5.90); RDW 13.6 % (11.5-15.5); WBC 15.5 k/uL (3.8-10.6)
[2023-02-08 13:15] LABS: ALT 27 U/L (4-49); AST 27 U/L (17-59); African American GFR (CKD) >90 (>60 ml/min/1.73 sqM); Albumin 4.2 g/dL (3.5-5.0); Alkaline Phosphatase 63 U/L (38-126); Anion Gap 5 mmol/L; Blood Urea Nitrogen 31 mg/dL (9-20); Calcium 9.9 mg/dL (8.4-10.2); Carbon Dioxide 31 mmol/L (22-30); Chloride 102 mmol/L (98-107); Glucose 99 mg/dL (74-99); Magnesium 2.1 mg/dL (1.6-2.3); Non-African American GFR(CKD) >90 (>60 ml/min/1.73 sqM); Potassium 4.5 mmol/L (3.5-5.1); Sodium 138 mmol/L (137-145); Total Bilirubin 0.8 mg/dL (0.2-1.3); Total Protein 7.6 g/dL (6.3-8.2)
[2023-02-08 13:18] LABS: INR 1.1 (<1.2); Prothrombin Time 11.3 sec (9.0-12.0)
[2023-02-08 13:22] LABS: NT-Pro-B-Type Natriuretic Pept 1430 pg/mL
[2023-02-08 13:25] LABS: Partial Thromboplastin Time 23.2 sec (22.0-30.0)
[2023-02-09 15:46] VITALS: BP 167/91; PULSE 42; TEMP 97.9
== END 2023-02-08 17:48 | disposition home or self-care (01) ==
LOC: EC 11:17
DX: R00.1 Bradycardia, unspecified (principal); R07.9 Chest pain, unspecified; I10 Essential (primary) hypertension; K21.9 Gastro-esophageal reflux disease without esophagitis; F12.90 Cannabis use, unspecified, uncomplicated; Z79.899 Other long term (current) drug therapy; Z91.09 Other allergy status, other than to drugs and biological substances
CPT/HCPCS: 36415; 71046; 80053; 83735; 83880; 84484; 85025; 85610; 85730; 93005; 99284

== ENCOUNTER → 2023-09-27 | Outpatient (CLI) | payer MEDICARE ==
--- NOTE | 2023-09-27 12:55 | CT ---
EXAMINATION TYPE: CT lumbar spine wo con DATE OF EXAM: 09/27/2023 COMPARISON: None HISTORY: low back pain x many years. CT DLP: 969 mGycm CONTRAST: None TECHNIQUE: CT of the lumbar spine is performed on a spiral scan at 3 mm thick sections. Reconstructed images are performed in the coronal and sagittal planes. FINDINGS: T12-L1: No focal disc herniation or significant disc bulge is evident. No spinal canal stenosis or neural foraminal stenosis is present. L1-L2: No focal disc herniation or significant disc bulge is evident. No spinal canal stenosis or n eural foraminal stenosis is present L2-L3: Mild disc bulge is present with anterior thecal sac contact. No AP spinal canal stenosis prese nt. Neural foramen are patent. L3-L4: Mild disc bulges anterior thecal sac flattening. No AP spinal canal stenosis is present. Neura l foramen are patent. L4-L5: Minimal disc bulge may be present with anterior thecal sac contact. No AP spinal canal stenosi s is present. Neural foramen are patent. L5-S1: No focal disc herniation or significant disc bulge is evident. No spinal canal stenosis or n eural foraminal stenosis is present Vertebral alignment appears normal. Disc heights are preserved. IMPRESSION: 1. Mild disc bulging L2-3 through L4-5 without spinal canal stenosis.
== END | disposition home or self-care (01) ==
LOC: RADCTMAIN 10:20
PROVIDERS: ATTEND Internal Medicine
DX: M51.16 Intervertebral disc disorders with radiculopathy, lumbar region (principal); M79.606 Pain in leg, unspecified
CPT/HCPCS: 72131

== ENCOUNTER 2023-10-06 10:18 | Day surgery (SDC) | payer MEDICARE ==
[2023-10-04 15:15] VITALS: BMI 35.6
[2023-10-06] MEDS: SODIUM CHLORIDE 0.9% 1,000 ML IV ONE (10:17)
[~2023-10-06 10:18] MED LIST changes: -ALPRAZolam 0.25 MG TAB PO PRN; -ALPRAZolam 0.5 MG TAB PO PRN; -ASPIRIN 325 MG TAB PO STA; -ATORVASTATIN 80 MG TAB PO STA; -NITROGLYCERIN SL TABS 0.4 MG TAB SUBLINGUAL PRN; +SODIUM CHLORIDE 0.9% 1,000 ML IV SCH; -SODIUM CHLORIDE 0.9% 1,000 ML in EMPTY BAG 1 BAG IV ONE
[2023-10-06 10:53] LABS: Basophils # (A) 0.1 k/uL (0-0.2); Basophils % (A) 1 %; Eosinophils # (A) 0.1 k/uL (0-0.7); Eosinophils % (A) 2 %; HCT 40.8 % (39.0-53.0); HGB 13.4 gm/dL (13.0-17.5); Lymphocytes # (A) 1.5 k/uL (1.0-4.8); Lymphocytes % (A) 21 %; MCH 30.8 pg (25.0-35.0); MCHC 32.9 g/dL (31.0-37.0); MCV 93.6 fL (80.0-100.0); Mean Platelet Volume 7.6; Monocytes # (A) 0.5 k/uL (0-1.0); Monocytes % (A) 7 %; Neutrophils # (A) 4.9 k/uL (1.3-7.7); Neutrophils % (A) 68 %; Platelet Count 240 k/uL (150-450); RBC 4.36 m/uL (4.30-5.90); RDW 12.6 % (11.5-15.5); WBC 7.3 k/uL (3.8-10.6)
[2023-10-06 11:03] LABS: African American GFR (CKD) >90 (>60 ml/min/1.73 sqM); Anion Gap 2 mmol/L; Blood Urea Nitrogen 26 mg/dL (9-20); Carbon Dioxide 29 mmol/L (22-30); Chloride 106 mmol/L (98-107); Glucose 106 mg/dL (74-99); Non-African American GFR(CKD) 89 (>60 ml/min/1.73 sqM); Sodium 137 mmol/L (137-145)
[2023-10-06 11:29] VITALS: PULSE 67; RESP 16; TEMP 97.8
[2023-10-06] MEDS: MIDAZOLAM 2 MG/2 ML VIAL IVP ONE ×2 (12:10→12:27)
[2023-10-06] MEDS: fentaNYL (PF) 50 MCG/ML 2 ML AMP IVP ONE (12:10)
[2023-10-06] MEDS: ceFAZolin 3 GM in SODIUM CHLORIDE 0.9% 100 ML IVPB PRN (12:11)
[2023-10-06] MEDS: ceFAZolin 1 GM in SODIUM CHLORIDE 0.9% IRRIG BTL 250 ML IRRIGATION PRN (12:11)
[2023-10-06] MEDS: LIDOCAINE 1% INJ 10MG/ML (20 ML MDV) SQ ONE ×3 (12:20→12:35)
[2023-10-06 13:41] VITALS: BP 144/63
--- NOTE | 2023-10-06 22:34 | P.OP ---
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 Arturo Montes Procedure performed: Single chamber permanent pacemaker generator change Site: Right subclavian Indications: Sick Sinus Syndrome Complications: None Blood Loss: Minimal Description of Procedure: After the risks, benefits, and alternatives of the above-mentioned procedure was explained in detail with the patient, informed consent was obtained. The patient was taken to the cardiac catheterization suite where the right subclavian area was sterily prepped and draped in the usual fashion. Patient was given IV Versed and fentanyl for sedation. The skin over the existing pulse generator was infiltrated with lidocaine. An incision was made in the skin and was d eepened until the pectoral fascia was exposed. Hemostasis was obtained. The existing pulse generator was pulled out of the pocket. The lead was disconnected and were checked for thresholds. The existing leads were then inserted into the appropriate position into the new generator. They were then secured with the setscrew provided. The leads and generator were inserted into the pocket with the leads posterior. The subcutaneous tissue was approximated utilizing #2.0 and 3.0 vicryl in an interrupted stitch fashion. The dermal layer was approximated utilizing #4.0 vicryl. The area was cleansed with sterile saline and dried. A sterile 4x4 dressing was applied and the patient was transferred to the post catheterization holding area in stable and satisfactory condition. The patient tolerated the procedure well. 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 Successful generator change of a single chamber permanent pacemaker in the right pectoral site. Plan: 1. Routine post procedure care will be instituted as well as outpatient follow- up surveillance.
== END 2023-10-06 14:50 ==
LOC: CATHEP 10:18
PROVIDERS: ATTEND Internal Medicine
DX: I49.5 Sick sinus syndrome (principal); I42.0 Dilated cardiomyopathy; I10 Essential (primary) hypertension; E78.5 Hyperlipidemia, unspecified; Z95.0 Presence of cardiac pacemaker; Z79.82 Long term (current) use of aspirin; Z79.899 Other long term (current) drug therapy
CPT/HCPCS: 33227; 80048; 85025; C1786; J2250; J0690; J2001; J3010

== ENCOUNTER 2024-01-25 12:20 | Observation (INO) | payer MEDICARE ==
--- NOTE | 2024-01-25 13:04 | ED ---
Arrhythmia/Palpitations HPI - General Chief Complaint: Arrhythmia/Palpitations Stated Complaint: heart issues Time Seen by Provider: 01/25/24 13:01 Source: patient, RN notes reviewed, old records reviewed Mode of arrival: ambulatory Limitations: no limitations - History of Present Illness Initial Comments: This is a 73-year-old male this male presents today for evaluation in regards to her chest pain beginning last night and found to be in atrial fibrillation today. Patient was sent by primary care for new onset atrial fibrillation. Patient has no recent illness fevers cough congestion no recent nausea vomiting or diarrhea MD Complaint: rapid heart beat, "heart racing", palpitations -: hour(s) Context: occurred during rest Arrhythmia History: other (History of abnormal heart rhythm) Associated Symptoms: chest pain, shortness of breath, near-syncope Treatments Prior to Arrival: other (0) - Related Data Home Medications Medication Instructions Recorded Confirmed Citalopram Hydrobromide [CeleXA] 40 mg PO HS 07/25/14 01/25/24 Finasteride [Proscar] 5 mg PO HS 04/28/17 01/25/24 HYDROcodone/APAP 7.5-325MG [[place] 1 tab PO TID PRN 10/11/18 01/25/24 7.5-325] Atorvastatin [Lipitor] 40 mg PO HS 07/24/21 01/25/24 Isosorbide Mononitrate ER [Imdur] 60 mg PO HS 07/24/21 01/25/24 Losartan Potassium [Cozaar] 100 mg PO HS 07/24/21 01/25/24 Furosemide [Lasix] 40 mg PO HS 02/08/23 01/25/24 Tamsulosin [Flomax] 0.4 mg PO HS 02/08/23 01/25/24 Aspirin [Adult Low Dose Aspirin EC] 81 mg PO HS 10/04/23 01/25/24 Previous Rx's Medication Instructions Recorded Apixaban [Eliquis] 5 mg PO BID #180 tab 01/26/24 Metoprolol Succinate (ER) [Toprol 50 mg PO DAILY #90 tab 01/26/24 Xl] Allergies Allergy/AdvReac Type Severity Reaction Status Date / Time nickel Allergy Rash/Hives Verified 01/25/24 17:11 Review of Systems ROS Statement: Those systems with pertinent positive or pertinent negative responses have been documented in the HPI. ROS Other: All systems not noted in ROS Statement are negative. Past Medical History Past Medical History: Chest Pain / Angina, GERD/Reflux, Hypertension, Osteoarthritis (OA), Prostate Disorder Additional Past Medical History / Comment(s): hypoglycemia (caused a seizure), BPH, PACEMAKER, KIDNEY STONES. 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 History of Any Multi-Drug Resistant Organisms: None Reported Past Surgical History: Appendectomy, Cholecystectomy, Heart Catheterization, Joint Replacement, Pacemaker Additional Past Surgical History / Comment(s): Cory hip replacement, KIDNEY STONES, colonoscopy Past Anesthesia/Blood Transfusion Reactions: No Reported Reaction Type of Cardiac Device: Permanent Pacemaker Device Placement Date:: 2013 Past Psychological History: No Psychological Hx Reported Smoking Status: Never smoker Past Alcohol Use History: Occasional Past Drug Use History: Marijuana - Past Family History Sister(s) Family Medical History: Cancer Additional Family Medical History / Comment(s): Lymph nodes. Mother Family Medical History: COPD, Hypertension Father Family Medical History: COPD Brother(s) Family Medical History: No Reported History Daughter(s) Family Medical History: No Reported History Son(s) Family Medical History: No Reported History General Exam Limitations: no limitations General appearance: alert, anxious, in distress Head exam: Present: atraumatic, normocephalic, normal inspection Eye exam: Present: normal appearance, PERRL, EOMI. Absent: scleral icterus, conjunctival injection, periorbital swelling ENT exam: Present: normal exam, mucous membranes moist Neck exam: Present: normal inspection. Absent: tenderness, meningismus, lymphadenopathy Respiratory exam: Present: normal lung sounds bilaterally. Absent: respiratory distress, wheezes, rales, rhonchi, stridor Cardiovascular Exam: Present: tachycardia, irregular rhythm, normal heart sounds. Absent: systolic murmur, diastolic murmur, rubs, gallop, clicks GI/Abdominal exam: Present: soft, normal bowel sounds. Absent: distended, ten derness, guarding, rebound, rigid Extremities exam: Present: normal inspection, full ROM, normal capillary refill. Absent: tenderness, pedal edema, joint swelling, calf tenderness Back exam: Present: normal inspection Neurological exam: Present: alert, oriented X3, CN II-XII intact Psychiatric exam: Present: normal affect, normal mood Skin exam: Present: warm, dry, intact, normal color. 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 sent in by a medical professional or institution (Dr. PA, INFANT TEACHER, urgent care, hospital, or long term...) When possible be specific @ -no Did you speak to anyone other than the patient for history (EMS, parent, family, police, friend...)? What history was obtained from this source @ -no Did you review nursing and triage notes (agree or disagree)? Why? @ -agree Are old charts reviewed (outside hosp., previous admission, EMS record, old EKG, old radiological studies, urgent care reports/EKG's, long term records)? Report findings @ -yes Differential Diagnosis (chest pain, altered mental status, abdominal pain women, abdominal pain men, vaginal bleeding, weakness, fever, dyspnea, syncope, headache, dizziness, GI bleed, back pain, seizure, CVA, palpatations, mental health, musculoskeletal)? @ -prior EKG interpreted by me (3pts min.). @ -yes X-rays interpreted by me (1pt min.). @ -Negative for acute disease CT interpreted by me (1pt min.). @ -no U/S interpreted by me (1pt. min.). @ -no What testing was considered but not performed or refused? (CT, X-rays, U/S, labs)? Why? @ -none What meds were considered but not given or refused? Why? @ -none Did you discuss the management of the patient with other professionals (professionals i.e. DrShruti, PA, INFANT TEACHER, lab, RT, psych nurse, social service technician, retail warehouse supervisor, teacher, seal delivery vehicle officer, case briefer)? Give summary @ -no Was smoking cessation discussed for >3mins.? @ -no Was critical care preformed (if so, how long)? @ -yes31 Were there social determinants of health that impacted care today? How? (Homelessness, low income, unemployed, alcoholism, drug addiction, tra nsportation, low edu. Level, literacy, decrease access to med. care, long-term, rehab)? @ -none Was there de-escalation of care discussed even if they declined (Discuss DNR or withdrawal of care, Hospice)? DNR status @ -no What co-morbidities impacted this encounter? (DM, HTN, Smoking, COPD, CAD, Cance r, CVA, ARF, Chemo, Hep., AIDS, mental health diagnosis, sleep apnea, morbid obesity)? @ -none Was patient admitted / discharged? Hospital course, mention meds given and route, prescriptions, significant lab abnormalities, going to OR and other pertinent info. @ - 73 male to ER for evaluation patient presents today for evaluation in regards to new onset atrial fibrillation with RVR will admit for cardiology evaluation Admitted Undiagnosed new problem with uncertain prognosis? @ -no Drug Therapy requiring intensive monitoring for toxicity (Heparin, Nitro, Insulin, Cardizem)? @ -no Were any procedures done? @ -no Diagnosis/symptom? @ -Atrial fibrillation with RVR Acute, or Chronic, or Acute on Chronic? @ -Acute Uncomplicated (without systemic symptoms) or Complicated (systemic symptoms)? @ -Complicated Side effects of treatment? @ -no Exacerbation, Progression, or Severe Exacerbation? @ -exacerbation Poses a threat to life or bodily function? How? (Chest pain, USA, VT, pneumonia, PE, COPD, DKA, ARF, appy, cholecystitis, CVA, Diverticulitis, Homicidal, Suicidal, threat to staff... and all critical care pts) @ -yes arrhythmia Reevaluation #5: Differential Palpitations Ventricular arrhythmias, atrial arrhythmias, myocardial infarction, anemia, thy rotoxicosis, electrolyte imbalance, hypokalemia, pulmonary embolism, pulmonary disease, drugs, alcohol, anxiety, stress.... This is not meant to be an all-inclusive list. - Consultations Consultation #1: spoke w Dr Nair who agrees to admit this patient EKG Findings - EKG Comments: EKG Findings:: EKG is A-fib with RVR 114 QRS normal QTc 422 - EKG Results: EKG: interpreted by TITA Medical Decision Making - Medical Decision Making 73 male to ER for evaluation patient presents today for evaluation in regards to new onset atrial fibrillation with RVR will admit for cardiology evaluation - Lab Data Result diagrams: 01/26/24 05:26 01/25/24 13:00 Lab Results 01/25/24 01/25/24 01/25/24 Range/Units 13:00 13:00 13:00 WBC 9.7 (3.8-10.6) k/uL RBC 4.89 (4.30-5.90) m/uL Hgb 15.3 (13.0-17.5) gm/dL Hct 44.7 (39.0-53.0) % MCV 91.4 (80.0-100.0) fL MCH 31.3 (25.0-35.0) pg MCHC 34.2 (31.0-37.0) g/dL RDW 13.2 (11.5-15.5) % Plt Count 283 (150-450) k/uL MPV 7.5 Neutrophils % 69 % Lymphocytes % 21 % Monocytes % 7 % Eosinophils % 2 % Basophils % 0 % Neutrophils # 6.7 (1.3-7.7) k/uL Lymphocytes # 2.1 (1.0-4.8) k/uL Monocytes # 0.7 (0-1.0) k/uL Eosinophils # 0.2 (0-0.7) k/uL Basophils # 0.0 (0-0.2) k/uL PT 12.3 (10.0-12.5) sec INR 1.1 (<1.2) APTT 23.6 (22.0-30.0) sec Sodium 140 (137-145) mmol/L Potassium 4.2 (3.5-5.1) mmol/L Chloride 107 (98-107) mmol/L Carbon Dioxide 29 (22-30) mmol/L Anion Gap 4 mmol/L BUN 21 H (9-20) mg/dL Creatinine 0.77 (0.66-1.25) mg/dL Est GFR (CKD-EPI)AfAm >90 (>60 ml/min/1.73 sqM) Est GFR (CKD-EPI)NonAf >90 (>60 ml/min/1.73 sqM) Glucose 107 H (74-99) mg/dL Calcium 10.1 (8.4-10.2) mg/dL Magnesium 2.0 (1.6-2.3) mg/dL Total Bilirubin 0.7 (0.2-1.3) mg/dL AST 35 (17-59) U/L ALT 24 (4-49) U/L Alkaline Phosphatase 67 (38-126) U/L Troponin I (0.000-0.034) ng/mL Total Protein 7.5 (6.3-8.2) g/dL Albumin 4.3 (3.5-5.0) g/dL 01/25/24 Range/Units 13:00 WBC (3.8-10.6) k/uL RBC (4.30-5.90) m/uL Hgb (13.0-17.5) gm/dL Hct (39.0-53.0) % MCV (80.0-100.0) fL MCH (25.0-35.0) pg MCHC (31.0-37.0) g/dL RDW (11.5-15.5) % Plt Count (150-450) k/uL MPV Neutrophils % % Lymphocytes % % Monocytes % % Eosinophils % % Basophils % % Neutrophils # (1.3-7.7) k/uL Lymphocytes # (1.0-4.8) k/uL Monocytes # (0-1.0) k/uL Eosinophils # (0-0.7) k/uL Basophils # (0-0.2) k/uL PT (10.0-12.5) sec INR (<1.2) APTT (22.0-30.0) sec Sodium (137-145) mmol/L Potassium (3.5-5.1) mmol/L Chloride (98-107) mmol/L Carbon Dioxide (22-30) mmol/L Anion Gap mmol/L BUN (9-20) mg/dL Creatinine (0.66-1.25) mg/dL Est GFR (CKD-EPI)AfAm (>60 ml/min/1.73 sqM) Est GFR (CKD-EPI)NonAf (>60 ml/min/1.73 sqM) Glucose (74-99) mg/dL Calcium (8.4-10.2) mg/dL Magnesium (1.6-2.3) mg/dL Total Bilirubin (0.2-1.3) mg/dL AST (17-59) U/L ALT (4-49) U/L Alkaline Phosphatase (38-126) U/L Troponin I 0.031 (0.000-0.034) ng/mL Total Protein (6.3-8.2) g/dL Albumin (3.5-5.0) g/dL - EKG Data -: EKG Interpreted by Me (EKG is A-fib with RVR 114 QRS 101 QTc 422) - Radiology Data Radiology results: report reviewed (Chest x-ray is negative for acute disease), image reviewed Critical Care Time Critical Care Time: Yes Total Critical Care Time: 31 Disposition Clinical Impression: Atrial fibrillation, Atrial fibrillation with rapid ventricular response, New onset atrial fibrillation, Chest pain, ACS (acute coronary syndrome) Disposition: ADMITTED IP TO THIS HOSP Condition: Stable Is patient prescribed a controlled substance at d/c from ED?: No Time of Disposition: 15:20
[2024-01-25 13:16] LABS: Basophils % (A) 0 %; Eosinophils # (A) 0.2 k/uL (0-0.7); Eosinophils % (A) 2 %; HCT 44.7 % (39.0-53.0); HGB 15.3 gm/dL (13.0-17.5); Lymphocytes # (A) 2.1 k/uL (1.0-4.8); Lymphocytes % (A) 21 %; MCH 31.3 pg (25.0-35.0); MCHC 34.2 g/dL (31.0-37.0); MCV 91.4 fL (80.0-100.0); Mean Platelet Volume 7.5; Monocytes # (A) 0.7 k/uL (0-1.0); Monocytes % (A) 7 %; Neutrophils # (A) 6.7 k/uL (1.3-7.7); Neutrophils % (A) 69 %; Platelet Count 283 k/uL (150-450); RBC 4.89 m/uL (4.30-5.90); RDW 13.2 % (11.5-15.5); WBC 9.7 k/uL (3.8-10.6)
[2024-01-25 13:27] LABS: INR 1.1 (<1.2); Partial Thromboplastin Time 23.6 sec (22.0-30.0); Prothrombin Time 12.3 sec (10.0-12.5)
[2024-01-25 13:35] LABS: ALT 24 U/L (4-49); AST 35 U/L (17-59); African American GFR (CKD) >90 (>60 ml/min/1.73 sqM); Albumin 4.3 g/dL (3.5-5.0); Alkaline Phosphatase 67 U/L (38-126); Anion Gap 4 mmol/L; Blood Urea Nitrogen 21 mg/dL (9-20); Calcium 10.1 mg/dL (8.4-10.2); Carbon Dioxide 29 mmol/L (22-30); Chloride 107 mmol/L (98-107); Glucose 107 mg/dL (74-99); Non-African American GFR(CKD) >90 (>60 ml/min/1.73 sqM); Potassium 4.2 mmol/L (3.5-5.1); Sodium 140 mmol/L (137-145); Total Bilirubin 0.7 mg/dL (0.2-1.3); Total Protein 7.5 g/dL (6.3-8.2)
--- NOTE | 2024-01-25 13:55 | XR ---
EXAMINATION TYPE: XR chest 2V DATE OF EXAM: 01/25/2024 1:38 PM CLINICAL INDICATION: Male, 73 years old with history of dysrhythmia; [facility] COMPARISON: Chest radiographs from 02/08/2023 TECHNIQUE: XR chest 2V Frontal view of the chest. FINDINGS: Lungs/Pleura: There is no evidence of pleural effusion, focal consolidation, or pneumothorax. Pulmonary vascularity: Unremarkable. Heart/mediastinum: Cardiomediastinal silhouette is unremarkable. Two lead cardiac conduction device o verlying the right hemithorax with lead tips projecting over the right ventricle and right atrium. Musculoskeletal: No acute osseous pathology. IMPRESSION: No acute cardiopulmonary disease/process.
[2024-01-25] MEDS ORDERED: NITROGLYCERIN SL TABS 0.4 MG TAB SUBLINGUAL PRN (15:23)
[2024-01-25] MEDS ORDERED: MORPHINE SULFATE 4 MG/ML SYRINGE IV PRN (15:23)
[2024-01-25] MEDS: HEPARIN SODIUM 1,000 UN/ML (10ML VL) IV ONE (15:59)
[2024-01-25] MEDS: ASPIRIN 81 MG PO STA (15:59)
[2024-01-25] MEDS: HEPARIN SOD,PORK IN 0.45% NACL 25,000 UNIT in 0.45% NACL 1 250ML.BAG IV SCH (16:00)
[2024-01-25] MEDS: DILTIAZEM DRIP BOLUS FROM BAG 1 MG SOLN IV ONE (17:03)
[2024-01-25] MEDS: DILTIAZEM 125 MG in SODIUM CHLORIDE 0.9% 100 ML IV SCH (17:12)
[2024-01-25] MEDS: METOPROLOL TARTRATE 25 MG TAB PO SCH (21:11)
[2024-01-25] MEDS: hydrALAZINE HCL 20 MG/ML 1 ML VIAL IVP STA (21:11)
[2024-01-25] MEDS: LABETALOL 5 MG/ML VIAL MDV IVP STA (21:12)
[2024-01-26 04:11] VITALS: TEMP 98
[2024-01-26 06:47] LABS: Platelet Count 264 k/uL (150-450)
[2024-01-26] MEDS: ASPIRIN 81 MG PO SCH (08:56)
[2024-01-26] MEDS: ATORVASTATIN 80 MG TAB PO SCH (08:56)
[2024-01-26] MEDS: APIXABAN 5 MG TAB PO SCH (08:56)
[2024-01-26] MEDS ORDERED: ASPIRIN 325 MG TAB PO SCH (09:00)
[2024-01-26] MEDS ORDERED: HYDROcodone/APAP 7.5-325MG 1 EACH TAB PO PRN (09:21)
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
[2024-01-26 10:53] LABS: Chol/HDL Ratio 2.71 Ratio; LDL Cholesterol,Calculated 45.1 mg/dL (0.0-131.0); VLDL Calculation 18.58 mg/dL (5.00-40.00)
[2024-01-26 12:15] VITALS: BP 134/60; PULSE 59; RESP 18
--- NOTE | 2024-01-26 12:31 | P.DS ---
Providers Date of admission: 01/25/24 15:25 Expected date of discharge: 01/26/24 Attending physician: Justice Nair Consults: 01/25/24 15:23 Consult Physician Urgent Consulting Provider: Sarah Cheek Consult Reason/Comments: [email or web address] Do you want consulting provider notified?: Yes Primary care physician: Justice Nair [facility] Course: Discharge diagnosis 1. New onset atrial fibrillation 2. Underlying history of coronary artery disease with previous heart catheterization 3. History of hypertension 3. History of essential hypertension 4. History of hyperlipidemia 5. History of GERD 6. History of cardiac arrhythmia with previous history of permanent pacemaker placement 7. History of depression 8. History of pancreatitis 9. History of diet acute diverticulitis 10. History of BPH Hospital course Ramírez Salter is a 73-year-old male patient who presented to the ER with concerns of new onset atrial fibrillation. Patient originally presented to PCP office with concerns of chest pain and was found to be in atrial fibrillation patient was sent to ER for further evaluation. Patient denies any recent illness. Patient does have a past medical history of chest pain, GERD, hyperlipidemia, hypertension, osteoarthritis and prostate disorder. Patient also has a past medical history of pacemaker placement and previous heart catheterization. X- ray performed in ER showing no acute cardiopulmonary disease. Troponins negative x 3. Patient was started on Cardizem drip and heparin drip cardiology services consulted. 2D echo has been ordered. At this time patient denies chest pain or shortness of breath. Patient denies nausea vomiting or diarrhea. Patient denies any urinary burning or frequency On 01/26/2024 patient is alert and oriented x 3. Patient is very eager to be DC'd home. Per nursing staff and cardiology services patient has been cleared for discharge. Patient will be DC'd on Eliquis new dose of Lopressor resume all other cardiac medications follow-up outpatient for further management patient denies chest pain or shortness of breath. Patient denies nausea vomiting or diarrhea. Patient denies any urinary burning or frequency Patient Condition at Discharge: Stable Plan - Discharge Summary Discharge Rx Participant: No New Discharge Prescriptions: New Apixaban [Eliquis] 5 mg PO BID #180 tab Metoprolol Succinate (ER) [Toprol Xl] 50 mg PO DAILY #90 tab Continue Atorvastatin [Lipitor] 40 mg PO HS Discontinued Metoprolol Succinate [Metoprolol Succinate ER] 25 mg PO HS dilTIAZem HCL [dilTIAZem HCL 24Hr ER (CD)] 180 mg PO HS No Action Citalopram Hydrobromide [CeleXA] 40 mg PO HS Finasteride [Proscar] 5 mg PO HS HYDROcodone/APAP 7.5-325MG [[place] 7.5-325] 1 tab PO TID PRN PRN Reason: Pain Losartan Potassium [Cozaar] 100 mg PO HS Isosorbide Mononitrate ER [Imdur] 60 mg PO HS Furosemide [Lasix] 40 mg PO HS Tamsulosin [Flomax] 0.4 mg PO HS Aspirin [Adult Low Dose Aspirin EC] 81 mg PO HS Discharge Medication List Citalopram Hydrobromide [CeleXA] 40 mg PO HS 07/25/14 [History] Finasteride [Proscar] 5 mg PO HS 04/28/17 [History] HYDROcodone/APAP 7.5-325MG [[place] 7.5-325] 1 tab PO TID PRN 10/11/18 [History] Atorvastatin [Lipitor] 40 mg PO HS 07/24/21 [History] Isosorbide Mononitrate ER [Imdur] 60 mg PO HS 07/24/21 [History] Losartan Potassium [Cozaar] 100 mg PO HS 07/24/21 [History] Furosemide [Lasix] 40 mg PO HS 02/08/23 [History] Tamsulosin [Flomax] 0.4 mg PO HS 02/08/23 [History] Aspirin [Adult Low Dose Aspirin EC] 81 mg PO HS 10/04/23 [History] Apixaban [Eliquis] 5 mg PO BID #180 tab 01/26/24 [Rx] Metoprolol Succinate (ER) [Toprol Xl] 50 mg PO DAILY #90 tab 01/26/24 [Rx] Follow up Appointment(s)/Referral(s): Arturo Montes DO [STAFF PHYSICIAN] - 1 Week Justice Nair MD [Primary Care Provider] - 1-2 days
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
[2024-01-26] MEDS ORDERED: TAMSULOSIN 0.4 MG CAP.ER.24H PO SCH (21:00)
[2024-01-26] MEDS ORDERED: FINASTERIDE 5 MG TAB PO SCH (21:00)
[2024-01-26] MEDS ORDERED: FUROSEMIDE 40 MG TAB PO SCH (21:00)
[2024-01-26] MEDS ORDERED: CITALOPRAM HYDROBROMIDE 20 MG TAB PO SCH (21:00)
== END 2024-01-26 13:33 | disposition home or self-care (01) ==
LOC: EC 12:20 → 3SCARD 15:25
PROVIDERS: ADMIT Internal Medicine; ATTEND Internal Medicine
DX: I48.0 Paroxysmal atrial fibrillation (principal); I25.10 Atherosclerotic heart disease of native coronary artery without angina pectoris; I11.0 Hypertensive heart disease with heart failure; I50.32 Chronic diastolic (congestive) heart failure; I65.22 Occlusion and stenosis of left carotid artery; I42.0 Dilated cardiomyopathy; I49.5 Sick sinus syndrome; R00.1 Bradycardia, unspecified; E78.5 Hyperlipidemia, unspecified; I47.10 Supraventricular tachycardia, unspecified; K21.9 Gastro-esophageal reflux disease without esophagitis; N40.0 Benign prostatic hyperplasia without lower urinary tract symptoms; K57.90 Diverticulosis of intestine, part unspecified, without perforation or abscess without bleeding; M19.90 Unspecified osteoarthritis, unspecified site; E66.9 Obesity, unspecified; Z68.36 Body mass index [BMI] 36.0-36.9, adult; F32.A Depression, unspecified; Z79.82 Long term (current) use of aspirin; Z79.891 Long term (current) use of opiate analgesic; Z79.899 Other long term (current) drug therapy; Z91.048 Other nonmedicinal substance allergy status; Z95.0 Presence of cardiac pacemaker; Z87.19 Personal history of other diseases of the digestive system
CPT/HCPCS: 36415; 71046; 80053; 80061; 83735; 84484; 85025; 85049; 85610; 85730; 93005; 96365; 96366; 96375; 96376; 99291

== ENCOUNTER 2024-10-04 09:01 | Observation (INO) | payer MEDICARE ==
[2024-10-04 09:49] LABS: Basophils # (A) 0.04 10*3/uL (0.00-0.10); Basophils % (A) 0.4 %; Eosinophils # (A) 0.08 10*3/uL (0.04-0.35); Eosinophils % (A) 0.8 %; HCT 38.2 % (39.6-50.0); HGB 12.9 g/dL (13.0-17.0); Lymphocytes # (A) 1.46 10*3/uL (0.90-5.00); Lymphocytes % (A) 14.3 %; MCH 31.2 pg (27.0-32.0); MCHC 33.8 g/dL (32.0-37.0); MCV 92.3 fL (80.0-97.0); Mean Platelet Volume 9.3 fL (9.5-12.2); Monocytes # (A) 0.74 10*3/uL (0.20-1.00); Monocytes % (A) 7.2 %; Neutrophils # (A) 7.86 10*3/uL (1.80-7.70); Neutrophils % (A) 76.9 %; Platelet Count 229 10*3/uL (140-440); RBC 4.14 10*6/uL (4.40-5.60); WBC 10.22 10*3/uL (4.50-10.00)
[2024-10-04] MEDS: hydrALAZINE HCL 20 MG/ML 1 ML VIAL IVP STA (09:49)
[2024-10-04 10:12] LABS: ALT 25 U/L (4-49); AST 27 U/L (17-59); African American GFR (CKD) >90 (>60 ml/min/1.73 sqM); Albumin 4.3 g/dL (3.5-5.0); Alkaline Phosphatase 88 U/L (38-126); Anion Gap 6 mmol/L; Blood Urea Nitrogen 24 mg/dL (9-20); Calcium 9.6 mg/dL (8.4-10.2); Carbon Dioxide 27 mmol/L (22-30); Chloride 108 mmol/L (98-107); Glucose 120 mg/dL (74-99); INR 1.2 (<1.2); Magnesium 2.1 mg/dL (1.6-2.3); Non-African American GFR(CKD) >90 (>60 ml/min/1.73 sqM); Potassium 4.6 mmol/L (3.5-5.1); Prothrombin Time 12.7 sec (10.0-12.5); Sodium 141 mmol/L (137-145); Total Bilirubin 1.4 mg/dL (0.2-1.3); Total Protein 7.5 g/dL (6.3-8.2)
--- NOTE | 2024-10-04 10:17 | XR ---
EXAMINATION TYPE: XR chest 2V DATE OF EXAM: 10/04/2024 CLINICAL INDICATION: Male, 73 years old with history of difficulty breathing, TECHNIQUE: Frontal and lateral views of the chest are obtained. COMPARISON: Chest x-ray January 25, 2024 FINDINGS: Persistent cardiomegaly with right-sided dual lead pacemaker. Background chronic emphysemat ous change with increasing interstitial markings bilaterally noted. The osseous structures are inta ct. IMPRESSION: Findings suggest CHF exacerbation. Persistent cardiomegaly with more prominent mild bilat eral interstitial edema. [facility], , 10/04/2024 10:15 AM
[2024-10-04 10:20] LABS: NT-Pro-B-Type Natriuretic Pept 4490 pg/mL
[2024-10-04] MEDS: NITROGLYCERIN SL TABS 0.4 MG TAB SUBLINGUAL STA (11:00)
[2024-10-04] MEDS: ASPIRIN 81 MG PO STA (11:00)
[2024-10-04] MEDS: FUROSEMIDE 10 MG/ML 4 ML VIAL IV STA (11:00)
[2024-10-04] MEDS ORDERED: NALOXONE 0.4 MG/ML 1 ML VIAL IV PRN (11:08)
[2024-10-04] MEDS ORDERED: ONDANSETRON 4 MG/2 ML VIAL IVP PRN (11:08)
--- NOTE | 2024-10-04 11:08 | ED ---
General Adult HPI - General Chief complaint: Shortness of Breath Stated complaint: DANIELA Time Seen by Provider: 10/04/24 09:25 Source: patient, family, RN notes reviewed, old records reviewed Mode of arrival: wheelchair Limitations: no limitations - History of Present Illness Initial comments: Patient is a 73-year-old male who presents emergency department for exertional shortness of breath. Has been ongoing for 2 months. Progressively worse. Did not take any of his blood pressure medications this morning and his blood pressure is elevated. States this is not a normal thing, as it is usually lower but states that it is likely elevated because he missed his pressure medications. Has not been running high at home. He denies any chest pain. Denies any abdominal pain, nausea, vomiting. Endorses worsening exertional dyspnea, paroxysmal nocturnal dyspnea, worsening orthopnea, worsening lower extremity edema. Endorses a relatively nonproductive cough. Is on Lasix daily. Does take Eliquis for A-fib. Chronically has a low heart rate in the 40s and has a pacemaker in place. Presents for further evaluation at this time. - Related Data Home Medications Medication Instructions Recorded Confirmed Citalopram Hydrobromide [CeleXA] 40 mg PO DAILY 07/25/14 10/04/24 Finasteride [Proscar] 5 mg PO DAILY 04/28/17 10/04/24 HYDROcodone/APAP 7.5-325MG [[place] 1 tab PO TID PRN 10/11/18 10/04/24 7.5-325] Atorvastatin [Lipitor] 40 mg PO DAILY 07/24/21 10/04/24 Isosorbide Mononitrate ER [Imdur] 60 mg PO DAILY 07/24/21 10/04/24 Losartan Potassium [Cozaar] 100 mg PO DAILY 07/24/21 10/04/24 Furosemide [Lasix] 40 mg PO DAILY 02/08/23 10/04/24 Tamsulosin [Flomax] 0.4 mg PO DAILY 02/08/23 10/04/24 Aspirin [Adult Low Dose Aspirin EC] 81 mg PO DAILY 10/04/23 10/04/24 Previous Rx's Medication Instructions Recorded Apixaban [Eliquis] 5 mg PO BID #180 tab 01/26/24 Metoprolol Succinate (ER) [Toprol 50 mg PO DAILY #90 tab 01/26/24 Xl] Allergies Allergy/AdvReac Type Severity Reaction Status Date / Time nickel Allergy Rash/Hives Verified 10/04/24 10:31 Review of Systems ROS Statement: Those systems with pertinent positive or pertinent negative responses have been documented in the HPI. ROS Other: All systems not noted in ROS Statement are negative. Past Medical History Past Medical History: Chest Pain / Angina, GERD/Reflux, Hypertension, Osteoarthritis (OA), Prostate Disorder Additional Past Medical History / Comment(s): hypoglycemia (caused a seizure), BPH, PACEMAKER, KIDNEY STONES. 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 History of Any Multi-Drug Resistant Organisms: None Reported Past Surgical History: Appendectomy, Cholecystectomy, Heart Catheterization, Joint Replacement, Pacemaker Additional Past Surgical History / Comment(s): Cory hip replacement, KIDNEY STONES, colonoscopy Past Anesthesia/Blood Transfusion Reactions: No Reported Reaction Type of Cardiac Device: Permanent Pacemaker Device Placement Date:: 2013 Past Psychological History: No Psychological Hx Reported Smoking Status: Never smoker Past Alcohol Use History: Occasional Past Drug Use History: Marijuana - Past Family History Sister(s) Family Medical History: Cancer Additional Family Medical History / Comment(s): Lymph nodes. Mother Family Medical History: COPD, Hypertension Father Family Medical History: COPD Brother(s) Family Medical History: No Reported History Daughter(s) Family Medical History: No Reported History Son(s) Family Medical History: No Reported History General Exam Limitations: no limitations Course Vital Signs 10/04/24 10/04/24 10/04/24 09:12 09:30 10:00 Temperature 98 F Pulse Rate 42 L 42 L 40 L Respiratory 22 Rate Blood Pressure 202/149 201/154 202/150 O2 Sat by Pulse 99 Oximetry 10/04/24 10/04/24 10/04/24 10:30 11:29 12:00 Temperature Pulse Rate 39 L 39 L 39 L Respiratory 18 Rate Blood Pressure 203/164 155/139 168/93 O2 Sat by Pulse 97 Oximetry Medical Decision Making - Medical Decision Making Was pt. sent in by a medical professional or institution (, PA, RUBY DEVELOPER, urgent care, hospital, or long-term...) When possible be specific @ -No Did you speak to anyone other than the patient for history (EMS, parent, family, police, friend...)? What history was obtained from this source @ -No Did you review nursing and triage notes (agree or disagree)? Why? @ -I reviewed and agree with nursing and triage notes Were old charts reviewed (outside hosp., previous admission, EMS record, old EKG, old radiological studies, urgent care reports/EKG's, long-term records)? Report findings @ -Reviewed medication list which does show that the patient is on Eliquis as well as low-dose Lasix. Reviewed prior EKGs from January 2024 as well as December 2023 which shows the chronic bradycardia Differential Diagnosis (chest pain, altered mental status, abdominal pain women, abdominal pain men, vaginal bleeding, weakness, fever, dyspnea, syncope, headache, dizziness, GI bleed, back pain, seizure, CVA, palpatations, mental health, musculoskeletal)? @ -Differential Dyspnea: Coronary syndrome, arrhythmia, tamponade, asthma, COPD, pulmonary embolism, pneumonia, pneumothorax, pulmonary effusion, anaphylaxis, diabetic ketoacidosis, flailed chest, pulmonary contusion, diaphragmatic rupture, anemia, ne uromuscular, this is not meant to be an all-inclusive list. EKG interpreted by me (3pts min.). @ -As above X-rays interpreted by me (1pt min.). @ -Chest x-ray shows bilateral pulmonary vascular congestion. CT interpreted by me (1pt min.). @ -None done U/S interpreted by me (1pt. min.). @ -None done What testing was considered but not performed or refused? (CT, X-rays, U/S, labs)? Why? @ -None What meds were considered but not given or refused? Why? @ -None Did you discuss the management of the patient with other professionals (professionals i.e. , PA, RUBY DEVELOPER, lab, RT, psych nurse, manager social work, washing machine assembler, teacher, consular officer, case management manager)? Give summary @ -Discussed with Dr. Nair who accepted the admission. Was smoking cessation discussed for >3mins.? @ -No Was critical care preformed (if so, how long)? @ -No Were there social determinants of health that impacted care today? How? (Homelessness, low income, unemployed, alcoholism, drug addiction, transportation, low edu. Level, literacy, decrease access to med. care, care home, rehab)? @ -No Was there de-escalation of care discussed even if they declined (Discuss DNR or withdrawal of care, Hospice)? DNR status @ -No What co-morbidities impacted this encounter? (DM, HTN, Smoking, COPD, CAD, Cancer, CVA, ARF, Chemo, Hep., AIDS, mental health diagnosis, sleep apnea, morbid obesity)? @ -Atrial fibrillation, bradycardia, pacemaker, mild CAD Was patient admitted / discharged? Hospital course, mention meds given and route , prescriptions, significant lab abnormalities, going to OR and other pertinent info. @ -Based on the patient's presentation and physical exam, presents emergency department complaining of what seems to be clinical presentation of a CHF exacerbation. Patient is also hypertensive did not take any of his normal morning medications. We obtain cardiac workup. He was in agreement this plan. Vitals are within acceptable limits other than the blood pressure. Patient will be given antihypertensive medications. EKG shows no signs of acute ischemia. Laboratory studies remarkable for a BNP elevated to 4490. Troponin is indeterminate at 0.027. Chest x-ray shows pulmonary vascular congestion. Patient's blood pressure did improve mildly with hydralazine. Patient will be given a nitroglycerin tablet and will see how he does. He will be started on IV Lasix, echo ordered. Cardiology consulted. Patient was in agreement this plan. I spoke with Dr. Nair who accepted the admission. Undiagnosed new problem with uncertain prognosis? @ -No Drug Therapy requiring intensive monitoring for toxicity (Heparin, Nitro, Insulin, Cardizem)? @ -No Were any procedures done? @ -No Diagnosis/symptom? @ -CHF Acute, or Chronic, or Acute on Chronic? @ -Acute Uncomplicated (without systemic symptoms) or Complicated (systemic symptoms)? @ -Complicated Side effects of treatment? @ -None Exacerbation, Progression, or Severe Exacerbation] @ -No Poses a threat to life or bodily function? @ -Yes - Lab Data Result diagrams: 10/04/24 09:10/04/24 09:29 Lab Results 10/04/24 10/04/24 10/04/24 Range/Units : 09: 09:29 WBC 10.22 H (4.50-10.00) 10*3/uL RBC 4.14 L (4.40-5.60) 10*6/uL Hgb 12.9 L (13.0-17.0) g/dL Hct 38.2 L (39.6-50.0) % MCV 92.3 (80.0-97.0) fL MCH 31.2 (27.0-32.0) pg MCHC 33.8 (32.0-37.0) g/dL Plt Count 229 (140-440) 10*3/uL MPV 9.3 L (9.5-12.2) fL Immature Gran % (Auto) 0.4 % Neutrophils % 76.9 % Lymphocytes % 14.3 % Monocytes % 7.2 % Eosinophils % 0.8 % Basophils % 0.4 % Immature Gran # 0.04 (0.00-0.04) 10*3/uL Neutrophils # 7.86 H (1.80-7.70) 10*3/uL Lymphocytes # 1.46 (0.90-5.00) 10*3/uL Monocytes # 0.74 (0.20-1.00) 10*3/uL Eosinophils # 0.08 (0.04-0.35) 10*3/uL Basophils # 0.04 (0.00-0.10) 10*3/uL PT 12.7 H (10.0-12.5) sec INR 1.2 H (<1.2) APTT 24.0 (22.0-30.0) sec Sodium 141 (137-145) mmol/L Potassium 4.6 (3.5-5.1) mmol/L Chloride 108 H (98-107) mmol/L Carbon Dioxide 27 (22-30) mmol/L Anion Gap 6 mmol/L BUN 24 H (9-20) mg/dL Creatinine 0.67 (0.66-1.25) mg/dL Est GFR (CKD-EPI)AfAm >90 (>60 ml/min/1.73 sqM) Est GFR (CKD-EPI)NonAf >90 (>60 ml/min/1.73 sqM) Glucose 120 H (74-99) mg/dL Calcium 9.6 (8.4-10.2) mg/dL Magnesium 2.1 (1.6-2.3) mg/dL Total Bilirubin 1.4 H (0.2-1.3) mg/dL AST 27 (17-59) U/L ALT 25 (4-49) U/L Alkaline Phosphatase 88 (38-126) U/L Troponin I (0.000-0.034) ng/mL NT-Pro-B Natriuret Pep 4490 pg/mL Total Protein 7.5 (6.3-8.2) g/dL Albumin 4.3 (3.5-5.0) g/dL Urine Color Urine Appearance (Clear) Urine pH (5.0-8.0) Ur Specific [place] (1.001-1.035) Urine Protein (Negative) Urine Glucose (UA) (Negative) Urine Ketones (Negative) Urine Blood (Negative) Urine Nitrite (Negative) Urine Bilirubin (Negative) Urine Urobilinogen (<2.0) mg/dL Ur Leukocyte Esterase (Negative) Influenza Type A (PCR) (Not Detectd) Influenza Type B (PCR) (Not Detectd) RSV (PCR) (Not Detectd) SARS-CoV-2 (PCR) (Not Detectd) 10/04/24 10/04/24 10/04/24 Range/Units 09:29 09:30 11:00 WBC (4.50-10.00) 10*3/uL RBC (4.40-5.60) 10*6/uL Hgb (13.0-17.0) g/dL Hct (39.6-50.0) % MCV (80.0-97.0) fL MCH (27.0-32.0) pg MCHC (32.0-37.0) g/dL Plt Count (140-440) 10*3/uL MPV (9.5-12.2) fL Immature Gran % (Auto) % Neutrophils % % Lymphocytes % % Monocytes % % Eosinophils % % Basophils % % Immature Gran # (0.00-0.04) 10*3/uL Neutrophils # (1.80-7.70) 10*3/uL Lymphocytes # (0.90-5.00) 10*3/uL Monocytes # (0.20-1.00) 10*3/uL Eosinophils # (0.04-0.35) 10*3/uL Basophils # (0.00-0.10) 10*3/uL PT (10.0-12.5) sec INR (<1.2) APTT (22.0-30.0) sec Sodium (137-145) mmol/L Potassium (3.5-5.1) mmol/L Chloride (98-107) mmol/L Carbon Dioxide (22-30) mmol/L Anion Gap mmol/L BUN (9-20) mg/dL Creatinine (0.66-1.25) mg/dL Est GFR (CKD-EPI)AfAm (>60 ml/min/1.73 sqM) Est GFR (CKD-EPI)NonAf (>60 ml/min/1.73 sqM) Glucose (74-99) mg/dL Calcium (8.4-10.2) mg/dL Magnesium (1.6-2.3) mg/dL Total Bilirubin (0.2-1.3) mg/dL AST (17-59) U/L ALT (4-49) U/L Alkaline Phosphatase (38-126) U/L Troponin I 0.027 (0.000-0.034) ng/mL NT-Pro-B Natriuret Pep pg/mL Total Protein (6.3-8.2) g/dL Albumin (3.5-5.0) g/dL Urine Color Yellow Urine Appearance Clear (Clear) Urine pH 6.5 (5.0-8.0) Ur Specific [place] 1.027 (1.001-1.035) Urine Protein Trace H (Negative) Urine Glucose (UA) Negative (Negative) Urine Ketones Negative (Negative) Urine Blood Negative (Negative) Urine Nitrite Negative (Negative) Urine Bilirubin Negative (Negative) Urine Urobilinogen 8.0 (<2.0) mg/dL Ur Leukocyte Esterase Negative (Negative) Influenza Type A (PCR) Not Detected (Not Detectd) Influenza Type B (PCR) Not Detected (Not Detectd) RSV (PCR) Not Detected (Not Detectd) SARS-CoV-2 (PCR) Not Detected (Not Detectd) - EKG Data -: EKG Interpreted by Me EKG Comments: 12-lead Electrocardiogram Interpretation Note EKG was reviewed and interpreted by myself. 12-lead ECG performed at 0922 is interpreted by me as revealing paced rhythm at a rate of 39 beats per minute. Left axis deviation. QRS durations 220 ms, QTc is 545.. There were no ST or T wave abnormalities to suggest myocardial ischemia or injury. R wave progression across the precordium was satisfactory. By my interpretation this EKG is non- diagnostic for acute ischemia. Disposition Clinical Impression: Congestive heart failure Disposition: ADMITTED IP TO THIS HOSP Condition: Stable Is patient prescribed a controlled substance at d/c from ED?: No Time of Disposition: 11:08
[2024-10-04] MEDS: LOSARTAN 50 MG TAB PO SCH (11:15)
[2024-10-04] MEDS: APIXABAN 5 MG TAB PO SCH (11:16)
[2024-10-04 11:27] LABS: Appearance,Urine Clear (Clear); Bilirubin,Urine Negative (Negative); Blood,Urine Negative (Negative); Color,Urine Yellow; Glucose,Urine (UA) Negative (Negative); Ketones,Urine Negative (Negative); Leukocyte Esterase,Urine Negative (Negative); Nitrite,Urine Negative (Negative); PH, Urine 6.5 (5.0-8.0); Protein,Urine Trace (Negative); Specific Gravity,Urine 1.027 (1.001-1.035)
[2024-10-04] MEDS: METOPROLOL SUCCINATE (ER) 50 MG TAB.ER.24H PO SCH (12:12)
[2024-10-04] MEDS: ISOSORBIDE MONONITRATE ER 60 MG TAB.ER.24H PO SCH (12:12)
[2024-10-04 13:16] LABS: Influenza A Not Detected (Not Detectd); Influenza B Not Detected (Not Detectd); RSV Not Detected (Not Detectd)
[2024-10-04] MEDS: hydrALAZINE HCL 20 MG/ML 1 ML VIAL IVP PRN (15:43)
[2024-10-04] MEDS: HYDROcodone/APAP 7.5-325MG 1 EACH TAB PO PRN (17:28)
[2024-10-04] MEDS: FUROSEMIDE 10 MG/ML 2 ML VIAL IV ONE (17:29)
[2024-10-04] MEDS: FUROSEMIDE 10 MG/ML 4 ML VIAL IV SCH (19:57)
[2024-10-05] MEDS: amLODIPine 5 MG TAB PO STA (05:26)
[2024-10-05] MEDS: FINASTERIDE 5 MG TAB PO SCH (08:10)
[2024-10-05] MEDS: TAMSULOSIN 0.4 MG CAP.ER.24H PO SCH (08:10)
[2024-10-05] MEDS: ATORVASTATIN 40 MG TAB PO SCH (08:10)
[2024-10-05] MEDS: ASPIRIN 81 MG PO SCH (08:10)
[2024-10-05] MEDS: CITALOPRAM HYDROBROMIDE 20 MG TAB PO SCH (08:11)
[2024-10-05 11:00] LABS: ALT 27 U/L (10-49); AST 30 U/L (14-35); Albumin 4.2 g/dL (3.8-4.9); Alkaline Phosphatase 99 U/L (41-126); BUN/Creat Ratio 22.71 Ratio (12.00-20.00); Blood Urea Nitrogen 15.9 mg/dL (9.0-27.0); Calcium 9.9 mg/dL (8.7-10.3); Carbon Dioxide 24.6 mmol/L (21.6-31.8); Chloride 102 mmol/L (96-109); Globulin 3.5 g/dL (1.6-3.3); Glucose 142 mg/dL (70-110); Potassium 3.9 mmol/L (3.5-5.5); Sodium 139 mmol/L (135-145); Total Bilirubin 1.9 mg/dL (0.3-1.2); Total Protein 7.7 g/dL (6.2-8.2)
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
--- NOTE | 2024-10-05 12:02 | CA ---
Transthoracic Echo Report Name: Ramírez Salter Age: 73 Gender: M : 1950 Exam Date: 10/04/2024 13:41 Exam Location: [facility] Ht (in): 75 Wt (lb): 285 Ordering Physician: Kiko Bautista MD Attending/Referring Phys: Crotch Piece Baster Brigid Jenkins RDCS Procedure CPT: Indications: chf Cardiac Hx: Cardiomegaly. Cardiomyopathy. Technical Quality: Very technically difficult study Contrast 1: Definity Total Dose (mL): 6 Contrast 2: Total Dose (mL): MEASUREMENTS (Male / Female) Normal Values 2D ECHO LV Diastolic Diameter PLAX 6.4 cm 4.2 - 5.9 / 3.9 - 5.3 cm LV Systolic Diameter PLAX 4.5 cm IVS Diastolic Thickness 1.4 cm 0.6 - 1.0 / 0.6 - 0.9 cm LVPW Diastolic Thickness 1.3 cm 0.6 - 1.0 / 0.6 - 0.9 cm LV Relative Wall Thickness 0.4 LVOT Diameter 2.2 cm Aortic Root Diameter 3.7 cm LV Diastolic Volume MOD BP 218.9 cm??? 67 - 155 / 56 - 104 cm??? LV Systolic Volume MOD BP 93.2 cm??? 22 - 58 / 19 - 49 cm??? LV Ejection Fraction MOD BP 57.4 % >= 55 % LV Cardiac Index MOD BP 1940.8 cm???/min???m??? LV Diastolic Volume MOD 4C 196.3 cm??? LV Systolic Volume MOD 4C 95.2 cm??? LV Ejection Fraction MOD 4C 51.5 % LV Cardiac Index MOD 4C 1560.5 cm???/min???m??? LV Diastolic Length 4C 9.9 cm LV Systolic Length 4C 8.7 cm LV Diastolic Volume MOD 2C 230.2 cm??? LV Systolic Volume MOD 2C 90.6 cm??? LV Ejection Fraction MOD 2C 60.6 % LV Cardiac Index MOD 2C 2153.8 cm???/min???m??? LV Diastolic Length 2C 10.5 cm LV Systolic Length 2C 8.9 cm DOPPLER AV Peak Velocity 128.6 cm/s AV Peak Gradient 6.6 mmHg AV Mean Velocity 93.8 cm/s AV Mean Gradient 3.8 mmHg AV Velocity Time Integral 25.0 cm LVOT Peak Velocity 93.0 cm/s LVOT Peak Gradient 3.5 mmHg LVOT Velocity Time Integral 21.1 cm LVOT Stroke Volume 77.2 cm??? LVOT Stroke Volume Index 30.3 ml/m??? LVOT Cardiac Index 1191.2 cm???/min???m??? AV Area Cont Eq vti 3.1 cm??? AV Area Cont Eq pk 2.6 cm??? Mitral E Point Velocity 113.6 cm/s Mitral A Point Velocity 36.3 cm/s Mitral E to A Ratio 3.1 MV Deceleration Time 175.3 ms MV E' Velocity 3.7 cm/s Mitral E to MV E' Ratio 30.7 TR Peak Velocity 277.4 cm/s TR Peak Gradient 30.8 mmHg Right Atrial Pressure 15.0 mmHg Pulmonary Artery Systolic Pressu 45.8 mmHg Right Ventricular Systolic Press 45.8 mmHg PV Peak Velocity 80.9 cm/s PV Peak Gradient 2.6 mmHg FINDINGS Left Ventricle Left ventricular ejection fraction is estimated at 45-50% by visual estimate. Mildly increased septal wall thickness. Mildly increased left ventricular diastolic diameter. Severely increased left ventricular diastolic volume. Severely increased left ventricular systolic volume. Unable to comment on regionals due to rhythm and poor image quality. Right Ventricle Right ventricle not well visualized. Moderate pulmonary hypertension. Right Atrium Normal right atrial size. Catheter/pacemaker wire in the right atrial cavity. Left Atrium Moderate left atrial dilatation. Mitral Valve Structurally normal mitral valve. No evidence for mitral valve prolapse. No mitral stenosis. Trace mitral regurgitation. Aortic Valve Trileaflet aortic valve. Aortic valve sclerosis. No aortic valve stenosis or regurgitation. Tricuspid Valve Structurally normal tricuspid valve. No tricuspid stenosis. Trace to mild tricuspid regurgitation. May be underestimated due to poor image quality. Pulmonic Valve Pulmonic valve not well visualized. No pulmonic stenosis. No pulmonic regurgitation. Pericardium No pericardial effusion. Aorta Normal size aortic root and proximal ascending aorta. CONCLUSIONS Very technically difficult study. LVEF 45 to 50% Mild concentric LVH Cannot comment on regional wall motion abnormality because of frequent PACs and PVCs Valvular functions could not be assessed with great accuracy Previewed by: Dr Goldy Altamirano (Electronically Signed) Final Date: 05 Oct 2024 12:01
[2024-10-05 12:59] LABS: Basophils # (A) 0.05 X 10*3/uL (0.00-0.10); Basophils % (A) 0.5 %; Eosinophils # (A) 0.07 X 10*3/uL (0.04-0.35); Eosinophils % (A) 0.6 %; HCT 41.2 % (39.6-50.0); HGB 13.5 g/dL (13.0-17.0); Lymphocytes # (A) 1.34 X 10*3/uL (0.90-5.00); Lymphocytes % (A) 12.4 %; MCH 30.5 pg (27.0-32.0); MCHC 32.8 g/dL (32.0-37.0); Monocytes # (A) 0.91 X 10*3/uL (0.20-1.00); Monocytes % (A) 8.4 %; NRBC Per 100 WBC 0 X 10*3/uL (0.00-0.01); Neutrophils # (A) 8.36 X 10*3/uL (1.80-7.70); Neutrophils % (A) 77.7 %; Platelet Count 247 X 10*3/uL (140-440); RBC 4.43 X 10*6/uL (4.40-5.60); RDW 14.3 % (11.5-14.5); WBC 10.77 X 10*3/uL (4.50-10.00)
--- NOTE | 2024-10-05 13:23 | P.CRDCN ---
History of Present Illness Consult date: 10/05/24 History of present illness: HISTORY OF PRESENTING ILLNESS: Patient is a 73-year-old known to Dr. Montes. He presented to the hospital because of increased worsening shortness of breath, difficulty in breathing when he is laying flat endorsing symptoms of paroxysmal nocturnal dyspnea. He reports that he recently came back from [place] after vacation and he has not b een watching his diet when he was on vacation and does admit eating salty foods and consuming alcohol. He received IV diuretics in the ER and since then he has reports that he had good urine output and reports clinical improvement in his symptoms with reported weight loss. At the time of evaluation he did not appear significantly volume overloaded. His EKG showed sinus rhythm with a heart rate of around 50 to 60 bpm. Admission blood pressure was 220, repeat is more controlled in the 130s to 140s range. Hemoglobin 13.5, BUN 15 creatinine 0.7, potassium 3.9, troponin was not elevated NT-proBNP 4500 Echo showed an EF of 45%, mild concentric LVH, very technically difficult study with poor acoustic windows. Intermittent PACs and PVCs noted during the echo study. REVIEW OF SYSTEMS: 14 point review of system is negative except what is mentioned above in HPI. PHYSICAL EXAMINATION: Neck: Brisk carotid upstroke, no jugular venous distention. Lungs: Clear to auscultation. Heart: Regular rate and rhythm, S1-S2, , no murmur or rub. Abdomen: Soft nontender, positive bowel sounds. Extremities: No edema, intact distal pulses. Neuro: Alert, oritented, no focal deficits. Detailed neuro exam was not performed. ASSESSMENT: # Acute on chronic HFmrEF exacerbation, likely from uncontrolled blood pressure and noncompliance to diet # Hypertensive urgency # History of PPM for sick sinus syndrome # Dyslipidemia # Essential hypertension PLAN: Optimize GDMT add Aldactone 25 g daily, Farxiga 10 mg daily Continue aspirin 81 mg, Lipitor 40 mg Change diuretic from Lasix IV twice daily to Bumex 1 mg p.o. daily He is on losartan 100 mg, Imdur 60 mg for blood pressure control. Add hydralazine 25 mg 3 times daily. Repeat labs tomorrow and monitor hemodynamics. If blood pressure is controlled tomorrow, consider discharging home with recommended outpatient follow-up with Dr. Montes Consider repeating echocardiogram after 3 months of optimal GDMT and compliance to meds and diet Goldy Altamirano MD, FACC, RPVI Thank you for allowing [facility] to participate in thi s patient's care. Feel free to reach out in case of any followup questions. Past Medical History Past Medical History: Chest Pain / Angina, GERD/Reflux, Hypertension, Osteoarthritis (OA), Prostate Disorder Additional Past Medical History / Comment(s): hypoglycemia (caused a seizure), BPH, PACEMAKER, KIDNEY STONES. 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 History of Any Multi-Drug Resistant Organisms: None Reported Past Surgical History: Appendectomy, Cholecystectomy, Heart Catheterization, Joint Replacement, Pacemaker Additional Past Surgical History / Comment(s): Cory hip replacement, KIDNEY STONES, colonoscopy Past Anesthesia/Blood Transfusion Reactions: No Reported Reaction Type of Cardiac Device: Permanent Pacemaker Device Placement Date:: 2013 Past Psychological History: No Psychological Hx Reported Smoking Status: Never smoker Past Alcohol Use History: Occasional Past Drug Use History: Marijuana - Past Family History Sister(s) Family Medical History: Cancer Additional Family Medical History / Comment(s): Lymph nodes. Mother Family Medical History: COPD, Hypertension Father Family Medical History: COPD Brother(s) Family Medical History: No Reported History Daughter(s) Family Medical History: No Reported History Son(s) Family Medical History: No Reported History Medications and Allergies Home Medications Medication Instructions Recorded Confirmed Type Citalopram Hydrobromide [CeleXA] 40 mg PO DAILY 07/25/14 10/04/24 History Finasteride [Proscar] 5 mg PO DAILY 04/28/17 10/04/24 History HYDROcodone/APAP 7.5-325MG [[place] 1 tab PO TID PRN 10/11/18 10/04/24 History 7.5-325] Atorvastatin [Lipitor] 40 mg PO DAILY 07/24/21 10/04/24 History Isosorbide Mononitrate ER [Imdur] 60 mg PO DAILY 07/24/21 10/04/24 History Losartan Potassium [Cozaar] 100 mg PO DAILY 07/24/21 10/04/24 History Furosemide [Lasix] 40 mg PO DAILY 02/08/23 10/04/24 History Tamsulosin [Flomax] 0.4 mg PO DAILY 02/08/23 10/04/24 History Aspirin [Adult Low Dose Aspirin EC] 81 mg PO DAILY 10/04/23 10/04/24 History Apixaban [Eliquis] 5 mg PO BID #180 tab 01/26/24 10/04/24 Rx Metoprolol Succinate (ER) [Toprol 50 mg PO DAILY #90 tab 01/26/24 10/04/24 Rx Xl] Allergies Allergy/AdvReac Type Severity Reaction Status Date / Time nickel Allergy Rash/Hives Verified 10/04/24 10:31 Physical Exam Vitals: Vital Signs Temp Pulse Pulse Resp BP BP Pulse Ox 10/05/24 06:46 98.1 F 44 L 16 187/87 97 10/05/24 04:53 203/68 10/05/24 03:17 194/60 10/05/24 01:40 97.9 F 47 L 18 214/70 96 10/04/24 20:00 97.8 F 51 L 17 177/67 97 10/04/24 18:00 176/90 10/04/24 16:00 46 L 19 210/96 97 10/04/24 14:45 225/109 10/04/24 14:31 43 L 18 197/78 97 10/04/24 13:30 42 L 183/89 Intake and Output 10/04/24 10/05/24 10/05/24 22:59 06:59 14:59 Output Total 900 300 Balance -900 -300 Output: Urine 900 300 Other: Voiding Method Toilet Toilet Weight 129.274 kg 121.8 kg Results 10/05/24 05:47 10/05/24 05:47 Cardiac Enzymes 10/05/24 Range/Units 05:47 AST 30 (14-35) U/L CBC 10/05/24 Range/Units 05:47 WBC 10.77 H (4.50-10.00) X 10*3/uL RBC 4.43 (4.40-5.60) X 10*6/uL Hgb 13.5 (13.0-17.0) g/dL Hct 41.2 (39.6-50.0) % Plt Count 247 (140-440) X 10*3/uL Comprehensive Metabolic Panel 10/05/24 Range/Units 05:47 Sodium 139 (135-145) mmol/L Potassium 3.9 (3.5-5.5) mmol/L Chloride 102 (96-109) mmol/L Carbon Dioxide 24.6 (21.6-31.8) mmol/L BUN 15.9 (9.0-27.0) mg/dL Creatinine 0.7 (0.6-1.5) mg/dL Glucose 142 H (70-110) mg/dL Calcium 9.9 (8.7-10.3) mg/dL AST 30 (14-35) U/L ALT 27 (10-49) U/L Alkaline Phosphatase 99 (41-126) U/L Total Protein 7.7 (6.2-8.2) g/dL Albumin 4.2 (3.8-4.9) g/dL Current Medications Generic Name Dose Route Start Last Admin Trade Name Freq PRN Reason Stop Dose Admin Hydrocodone Bitart/Acetaminophen 1 each 10/04/24 10:53 10/04/24 17:28 Hydrocodone/Apap 7.5-325mg 1 Each Tab PO 1 each TID PRN Administration Pain Amlodipine Besylate 5 mg 10/05/24 12:00 Amlodipine 5 Mg Tab PO DAILY BRYCE Apixaban 5 mg 10/04/24 11:15 10/05/24 08:11 Apixaban 5 Mg Tab PO 5 mg BID BRYCE Administration Protocol Aspirin 81 mg 10/05/24 09:00 10/05/24 08:10 Aspirin 81 Mg PO 81 mg DAILY BRYCE Administration Atorvastatin Calcium 40 mg 10/05/24 09:00 10/05/24 08:10 Atorvastatin 40 Mg Tab PO 40 mg DAILY BRYCE Administration Bumetanide 1 mg 10/06/24 09:00 Bumetanide 1 Mg Tab PO DAILY [facility] Citalopram Hydrobromide 40 mg 10/05/24 09:00 10/05/24 08:11 Citalopram Hydrobromide 20 Mg Tab PO 40 mg DAILY BRYCE Administration Dapagliflozin 10 mg 10/05/24 12:15 Dapagliflozin Propanediol 10 Mg Tablet PO DAILY BRYCE Finasteride 5 mg 10/05/24 09:00 10/05/24 08:10 Finasteride 5 Mg Tab PO 5 mg DAILY BRYCE Administration Hydralazine HCl 25 mg 10/05/24 12:15 Hydralazine Hcl 25 Mg Tab PO TID BRYCE Isosorbide Mononitrate 60 mg 10/04/24 11:00 10/05/24 08:10 Isosorbide Mononitrate Er 60 Mg Tab.Er.24h PO 60 mg DAILY BRYCE Administration Losartan Potassium 100 mg 10/04/24 11:15 10/05/24 08:10 Losartan 50 Mg Tab PO 100 mg DAILY BRYCE Administration Metoprolol Succinate 50 mg 10/04/24 11:00 10/05/24 08:11 Metoprolol Succinate (Er) 50 Mg Tab.Er.24h PO 50 mg DAILY BRYCE Administration Naloxone HCl 0.2 mg 10/04/24 11:08 Naloxone 0.4 Mg/Ml 1 Ml Vial IV Q2M PRN Opioid Reversal Spironolactone 25 mg 10/05/24 12:15 Spironolactone 25 Mg Tab PO DAILY BRYCE Tamsulosin HCl 0.4 mg 10/05/24 09:00 10/05/24 08:10 Tamsulosin 0.4 Mg Cap.Er.24h PO 0.4 mg DAILY BRYCE Administration Intake and Output 10/04/24 10/05/24 10/05/24 22:59 06:59 14:59 Output Total 900 300 Balance -900 -300 Output: Urine 900 300 Other: Voiding Method Toilet Toilet Weight 129.274 kg 121.8 kg 10/05/24 05:47 10/05/24 05:47
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
[2024-10-05] MEDS: amLODIPine 5 MG TAB PO SCH (14:34)
[2024-10-05] MEDS: SPIRONOLACTONE 25 MG TAB PO SCH (14:35)
[2024-10-05] MEDS: hydrALAZINE HCL 25 MG TAB PO SCH (14:35)
[2024-10-05] MEDS: DAPAGLIFLOZIN PROPANEDIOL 10 MG TABLET PO SCH (14:35)
[2024-10-05 15:26] LABS: Chol/HDL Ratio 2.72 Ratio; LDL Cholesterol,Calculated 45.6 mg/dL (0.0-131.0); VLDL Calculation 11.96 mg/dL (5.00-40.00)
[2024-10-06] MEDS: BUMETANIDE 1 MG TAB PO SCH (07:47)
[2024-10-06] MEDS ORDERED: BUMETANIDE 1 MG TAB PO SCH (09:00)
[2024-10-06 09:59] LABS: Basophils # (A) 0.06 X 10*3/uL (0.00-0.10); Basophils % (A) 0.6 %; Eosinophils # (A) 0.16 X 10*3/uL (0.04-0.35); Eosinophils % (A) 1.6 %; HCT 42.4 % (39.6-50.0); HGB 13.9 g/dL (13.0-17.0); Lymphocytes # (A) 2.29 X 10*3/uL (0.90-5.00); Lymphocytes % (A) 22.8 %; MCH 30.3 pg (27.0-32.0); MCHC 32.8 g/dL (32.0-37.0); MCV 92.4 FL (80.0-97.0); Mean Platelet Volume 9.6 FL (9.5-12.2); Monocytes # (A) 1.21 X 10*3/uL (0.20-1.00); NRBC Per 100 WBC 0 X 10*3/uL (0.00-0.01); Neutrophils % (A) 62.6 %; Platelet Count 283 X 10*3/uL (140-440); RBC 4.59 X 10*6/uL (4.40-5.60); RDW 13.9 % (11.5-14.5); WBC 10.06 X 10*3/uL (4.50-10.00)
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
[2024-10-06 10:31] LABS: ALT 28 U/L (10-49); AST 28 U/L (14-35); Albumin 4.1 g/dL (3.8-4.9); Albumin/Globulin Ratio 1.24 Ratio (1.60-3.17); Alkaline Phosphatase 96 U/L (41-126); Blood Urea Nitrogen 25.6 mg/dL (9.0-27.0); Calcium 9.7 mg/dL (8.7-10.3); Carbon Dioxide 25.2 mmol/L (21.6-31.8); Chloride 102 mmol/L (96-109); Globulin 3.3 g/dL (1.6-3.3); Glucose 106 mg/dL (70-110); Potassium 4.3 mmol/L (3.5-5.5); Sodium 137 mmol/L (135-145); Total Bilirubin 1.6 mg/dL (0.3-1.2); Total Protein 7.4 g/dL (6.2-8.2)
--- NOTE | 2024-10-06 12:39 | P.PN ---
Subjective Progress Note Date: 10/06/24 HISTORY OF PRESENTING ILLNESS: Patient is a 73-year-old known to Dr. Montes. He presented to the hospital because of increased worsening shortness of breath, difficulty in breathing when he is laying flat endorsing symptoms of paroxysmal nocturnal dyspnea. He reports that he recently came back from [place] after vacation and he has not been watching his diet when he was on vacation and does admit eating salty foods and consuming alcohol. He received IV diuretics in the ER and since then he has reports that he had good urine output and reports clinical improvement in his symptoms with reported weight loss. At the time of evaluation he did not appear significantly volume overloaded. His EKG showed sinus rhythm with a heart rate of around 50 to 60 bpm. Admission blood pressure was 220, repeat is more controlled in the 130s to 140s range. Hemoglobin 13.5, BUN 15 creatinine 0.7, potassium 3.9, troponin was not elevated NT-proBNP 4500 Echo showed an EF of 45%, mild concentric LVH, very technically difficult study with poor acoustic windows. Intermittent PACs and PVCs noted during the echo study. Progress note 10/06/2024 BP 216/82 this morning, heart rate 50 bpm, repeat BP after medications were 147/74 Reports symptomatic improvement, no significant swelling in the legs, normal JVP PHYSICAL EXAMINATION: Neck: Brisk carotid upstroke, no jugular venous distention. Lungs: Clear to auscultation. Heart: Regular rate and rhythm, S1-S2, , no murmur or rub. Abdomen: Soft nontender, positive bowel sounds. Extremities: No edema, intact distal pulses. Neuro: Alert, oritented, no focal deficits. Detailed neuro exam was not performed. 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 daily He is on losartan 100 mg, Imdur 60 mg for blood pressure control. Increase hydralazine to 50 mg 3 times daily Because of low resting heart rate discontinue meta-XL 50 mg instead start Coreg 3.125 mg twice daily Repeat labs tomorrow and monitor hemodynamics. If blood pressure is controlled tomorrow, consider discharging home with recommended outpatient follow-up with Dr. Montes Consider repeating echocardiogram after 3 months of optimal GDMT and compliance to meds and diet Objective - Vital Signs Vital signs: Vital Signs Temp 98.3 F 10/06/24 07:00 Pulse 48 L 10/06/24 08:38 Resp 19 10/06/24 08:38 BP 147/74 10/06/24 08:38 Pulse Ox 98 10/06/24 07:00 FiO2 Intake & Output 10/05/24 10/06/24 10/06/24 18:59 06:59 18:59 Output Total 800 Balance -800 Weight 120.1 kg Output: Urine 800 Other: Voiding Method Toilet Toilet Toilet # Voids 2 - Labs CBC & Chem 7: 10/06/24 03:42 10/06/24 03:42 Labs: Abnormal Lab Results - Last 24 Hours (Table) 10/05/24 10/05/24 10/06/24 Range/Units 05:47 05:47 03:42 WBC 10.77 H 10.06 H (4.50-10.00) X 10*3/uL Neutrophils # 8.36 H (1.80-7.70) X 10*3/uL Monocytes # 1.21 H (0.20-1.00) X 10*3/uL BUN/Creatinine Ratio (12.00-20.00) Ratio Total Bilirubin (0.3-1.2) mg/dL Albumin/Globulin Ratio (1.60-3.17) Ratio HDL Cholesterol 33.40 L (40.00-60.00) mg/dL 10/06/24 Range/Units 03:42 WBC (4.50-10.00) X 10*3/uL Neutrophils # (1.80-7.70) X 10*3/uL Monocytes # (0.20-1.00) X 10*3/uL BUN/Creatinine Ratio 32.00 H (12.00-20.00) Ratio Total Bilirubin 1.6 H (0.3-1.2) mg/dL Albumin/Globulin Ratio 1.24 L (1.60-3.17) Ratio HDL Cholesterol (40.00-60.00) mg/dL
[2024-10-06] MEDS: hydrALAZINE HCL 50 MG TAB PO SCH (17:16)
[2024-10-06] MEDS: carvediloL 3.125 MG TAB PO SCH (17:16)
[2024-10-07 04:31] VITALS: RESP 16
[2024-10-07 08:08] LABS: ALT 31 U/L (10-49); AST 27 U/L (14-35); Albumin 4.2 g/dL (3.8-4.9); Alkaline Phosphatase 98 U/L (41-126); Blood Urea Nitrogen 26.4 mg/dL (9.0-27.0); Calcium 9.7 mg/dL (8.7-10.3); Chloride 102 mmol/L (96-109); Globulin 3.5 g/dL (1.6-3.3); Glucose 116 mg/dL (70-110); Potassium 4.6 mmol/L (3.5-5.5); Sodium 137 mmol/L (135-145); Total Bilirubin 1.2 mg/dL (0.3-1.2); Total Protein 7.7 g/dL (6.2-8.2)
[2024-10-07 08:43] LABS: Basophils # (A) 0.07 X 10*3/uL (0.00-0.10); Basophils % (A) 0.8 %; Eosinophils # (A) 0.19 X 10*3/uL (0.04-0.35); HCT 46.2 % (39.6-50.0); HGB 15.1 g/dL (13.0-17.0); Lymphocytes # (A) 2.24 X 10*3/uL (0.90-5.00); MCH 29.5 pg (27.0-32.0); MCHC 32.7 g/dL (32.0-37.0); MCV 90.4 FL (80.0-97.0); Mean Platelet Volume 9.5 FL (9.5-12.2); Monocytes # (A) 1.09 X 10*3/uL (0.20-1.00); Monocytes % (A) 11.7 %; NRBC Per 100 WBC 0 X 10*3/uL (0.00-0.01); Neutrophils # (A) 5.69 X 10*3/uL (1.80-7.70); Neutrophils % (A) 61.1 %; Platelet Count 302 X 10*3/uL (140-440); RBC 5.11 X 10*6/uL (4.40-5.60); RDW 13.7 % (11.5-14.5); WBC 9.32 X 10*3/uL (4.50-10.00)
[2024-10-07] MEDS: amLODIPine 5 MG TAB PO SCH (09:38)
[2024-10-07] MEDS: carvediloL 6.25 MG TAB PO SCH (09:39)
--- NOTE | 2024-10-07 11:14 | P.PN ---
Subjective HISTORY OF PRESENTING ILLNESS: Patient is a 73-year-old known to Dr. Montes. He presented to the hospital because of increased worsening shortness of breath, difficulty in breathing when he is laying flat endorsing symptoms of paroxysmal nocturnal dyspnea. He reports that he recently came back from [place] after vacation and he has not been watching his diet when he was on vacation and does admit eating salty foods and consuming alcohol. He received IV diuretics in the ER and since then he has reports that he had good urine output and reports clinical improvement in his symptoms with reported weight loss. At the time of evaluation he did not appear significantly volume overloaded. His EKG showed sinus rhythm with a heart rate of around 50 to 60 bpm. Admission blood pressure was 220, repeat is more controlled in the 130s to 140s range. Hemoglobin 13.5, BUN 15 creatinine 0.7, potassium 3.9, troponin was not elevated NT-proBNP 4500 Echo showed an EF of 45%, mild concentric LVH, very technically difficult study with poor acoustic windows. Intermittent PACs and PVCs noted during the echo study. 10/06/2024 BP 216/82 this morning, heart rate 50 bpm, repeat BP after medications were 147/74 Reports symptomatic improvement, no significant swelling in the legs, normal JVP 10/07/2024 Patient seen and examined resting in bed in no acute distress. Blood pressure much better controlled today, 150/87 heart rate 56 afebrile maintaining oxygen saturation on room air. Laboratory data reviewed, CBC unremarkable, sodium 137, potassium 4.6, creatinine 0.8 PHYSICAL EXAMINATION: Neck: Brisk carotid upstroke, no jugular venous distention. Lungs: Clear to auscultation. Heart: Regular rate and rhythm, S1-S2, , no murmur or rub. Abdomen: Soft nontender, positive bowel sounds. Extremities: No edema, intact distal pulses. Neuro: Alert, oritented, no focal deficits. Detailed neuro exam was not performed. ASSESSMENT: # Acute on chronic HFmrEF exacerbation, likely from uncontrolled blood pressure and noncompliance to diet # Hypertensive urgency # History of PPM for sick sinus syndrome # Dyslipidemia # Essential hypertension PLAN: Increase amlodipine to 5 mg twice daily and Coreg to 6.25 mg twice daily. Stable for discharge from a cardiac perspective later on this afternoon if his blood pressure remains stable. Follow-up with Dr. Montes in 2 weeks. Nurse Practitioner note has been reviewed, I agree with a documented findings and plan of care. Patient was seen and examined. Objective - Vital Signs Vital signs: Vital Signs Temp 97.8 F 10/07/24 07:00 Pulse 61 10/07/24 09:40 Resp 16 10/07/24 07:00 BP 166/97 10/07/24 09:40 Pulse Ox 98 10/07/24 07:00 FiO2 Intake & Output 10/06/24 10/07/24 10/07/24 18:59 06:59 18:59 Intake Total 222 221 Balance 222 221 Weight 118.3 kg Intake: Oral 222 221 Other: Voiding Method Toilet Toilet # Voids 2 0 - Labs CBC & Chem 7: 10/07/24 05:13 10/07/24 05:13 Labs: Abnormal Lab Results - Last 24 Hours (Table) 10/07/24 10/07/24 Range/Units 05:13 05:13 Monocytes # 1.09 H (0.20-1.00) X 10*3/uL BUN/Creatinine Ratio 33.00 H (12.00-20.00) Ratio Glucose 116 H (70-110) mg/dL Globulin 3.5 H (1.6-3.3) g/dL Albumin/Globulin Ratio 1.20 L (1.60-3.17) Ratio
[2024-10-07 14:26] VITALS: BP 136/76; PULSE 57; TEMP 97.8
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
== END 2024-10-07 17:19 | disposition home or self-care (01) ==
LOC: EC 09:01 → 6NMEDSUR 11:09
PROVIDERS: ADMIT Internal Medicine; ATTEND Internal Medicine
DX: I11.0 Hypertensive heart disease with heart failure (principal); I50.43 Acute on chronic combined systolic (congestive) and diastolic (congestive) heart failure; I16.1 Hypertensive emergency; I49.5 Sick sinus syndrome; E78.5 Hyperlipidemia, unspecified; K21.9 Gastro-esophageal reflux disease without esophagitis; N40.0 Benign prostatic hyperplasia without lower urinary tract symptoms; I48.0 Paroxysmal atrial fibrillation; I65.29 Occlusion and stenosis of unspecified carotid artery; I42.0 Dilated cardiomyopathy; M19.90 Unspecified osteoarthritis, unspecified site; E11.9 Type 2 diabetes mellitus without complications; R00.1 Bradycardia, unspecified; Z91.119 Patient's noncompliance with dietary regimen due to unspecified reason; Z87.442 Personal history of urinary calculi; Z95.0 Presence of cardiac pacemaker; Z79.899 Other long term (current) drug therapy; Z79.82 Long term (current) use of aspirin; Z79.01 Long term (current) use of anticoagulants
CPT/HCPCS: 96376 ×3; 96374; 96375; 99285; 36415; 93005; 93306; 83880; 80061; 80053 ×4; 84443; 83735 ×2; 84484; 85025 ×4; 85610; 85730; 81003; 83036; 87636; 71046; G0378 ×4; S0138 ×3; J0360 ×2; Q9957; J1938 ×3

== ENCOUNTER 2024-10-08 10:50 | Observation (INO) | payer MEDICARE ==
[2024-10-08] MEDS: SODIUM CHLORIDE 0.9% 1,000 ML IV SCH (11:10)
[2024-10-08 11:22] LABS: Basophils # (A) 0.07 10*3/uL (0.00-0.10); Basophils % (A) 0.7 %; Eosinophils # (A) 0.13 10*3/uL (0.04-0.35); Eosinophils % (A) 1.3 %; HCT 44.9 % (39.6-50.0); HGB 15.5 g/dL (13.0-17.0); Lymphocytes # (A) 2.32 10*3/uL (0.90-5.00); Lymphocytes % (A) 22.7 %; MCH 31.3 pg (27.0-32.0); MCHC 34.5 g/dL (32.0-37.0); MCV 90.5 fL (80.0-97.0); Mean Platelet Volume 9.1 fL (9.5-12.2); Monocytes # (A) 0.95 10*3/uL (0.20-1.00); Monocytes % (A) 9.3 %; Neutrophils # (A) 6.71 10*3/uL (1.80-7.70); Neutrophils % (A) 65.5 %; Platelet Count 338 10*3/uL (140-440); RBC 4.96 10*6/uL (4.40-5.60); RDW 13.8 % (11.5-14.5); WBC 10.23 10*3/uL (4.50-10.00)
--- NOTE | 2024-10-08 11:35 | XR ---
EXAMINATION TYPE: XR chest 1V portable DATE OF EXAM: 10/08/2024 11:25 AM COMPARISON: Chest radiographs from 10/04/2024. CLINICAL INDICATION: Male, 73 years old with history of dizzy, hypotension; [facility] TECHNIQUE: XR chest 1V portable Frontal view of the chest. FINDINGS: Lungs/Pleura: There is no evidence of pleural effusion, focal consolidation, or pneumothorax. Pulmonary vascularity: Unremarkable. Heart/mediastinum: Cardiomediastinal silhouette is unremarkable. Two lead cardiac conduction device o verlying the right hemithorax with lead tips projecting over the right ventricle and right atrium. Musculoskeletal: No acute osseous pathology. IMPRESSION: No acute cardiopulmonary disease/process. [facility], , 10/08/2024 11:32 AM
--- NOTE | 2024-10-08 11:59 | ED ---
General Adult HPI - General Chief complaint: Dizziness Stated complaint: Abn BP Time Seen by Provider: 10/08/24 11:00 Source: patient, RN notes reviewed, old records reviewed Mode of arrival: ambulatory Limitations: no limitations - History of Present Illness Initial comments: Patient is a 73-year-old male who presents emergency department complaining of low blood pressures. I did evaluate the patient last week and admitted him for CHF. He was started on numerous new medications. Was discharged home last night. States he took all of his medications this morning was feeling lightheaded, nauseous without him episode of emesis, without any chest pain. States he feels improved when laying down but worse when he stands up. Start on new medications. Presents for further evaluation at this time. Patient does have a history of hypertension, CHF, atrial fibrillation on Eliquis.Denies falling. Denies head injuries. Presents for further evaluation for near syncope as well as low blood pressures. - Related Data Home Medications Medication Instructions Recorded Confirmed Citalopram Hydrobromide [CeleXA] 40 mg PO DAILY 07/25/14 10/04/24 Finasteride [Proscar] 5 mg PO DAILY 04/28/17 10/04/24 HYDROcodone/APAP 7.5-325MG [[place] 1 tab PO TID PRN 10/11/18 10/04/24 7.5-325] Atorvastatin [Lipitor] 40 mg PO DAILY 07/24/21 10/04/24 Isosorbide Mononitrate ER [Imdur] 60 mg PO DAILY 07/24/21 10/04/24 Losartan Potassium [Cozaar] 100 mg PO DAILY 07/24/21 10/04/24 Tamsulosin [Flomax] 0.4 mg PO DAILY 02/08/23 10/04/24 Aspirin [Adult Low Dose Aspirin EC] 81 mg PO DAILY 10/04/23 10/04/24 Previous Rx's Medication Instructions Recorded Apixaban [Eliquis] 5 mg PO BID #180 tab 01/26/24 Bumetanide [BUMEX] 1 mg PO DAILY 30 Days #30 tab 10/07/24 Dapagliflozin Propanediol [Farxiga] 10 mg PO DAILY 30 Days #30 tab 10/07/24 Spironolactone [Aldactone] 25 mg PO DAILY 30 Days #30 tab 05/12/25 amLODIPine [Norvasc] 5 mg PO BID 30 Days #60 tab 10/07/24 carvediloL [Coreg] 6.25 mg PO BID-W/MEALS 30 Days #60 10/07/24 tab hydrALAZINE HCL [Apresoline] 50 mg PO TID 30 Days #90 tab 10/07/24 Allergies Allergy/AdvReac Type Severity Reaction Status Date / Time nickel Allergy Rash/Hives Verified 10/08/24 10:57 Review of Systems ROS Statement: Those systems with pertinent positive or pertinent negative responses have been documented in the HPI. Review of Systems: CONST: Denies fever EYES: Denies blurry vision ENT: Denies nasal congestion C/V: Denies Chest pain RESP: Denies shortness of breath GI: Denies abdominal pain : Denies dysuria SKIN: Denies rash. MSK: Denies joint pain. NEURO: Endorses lightheadedness ROS Other: All systems not noted in ROS Statement are negative. Past Medical History Past Medical History: Chest Pain / Angina, GERD/Reflux, Hypertension, O steoarthritis (OA), Prostate Disorder Additional Past Medical History / Comment(s): hypoglycemia (caused a seizure), BPH, PACEMAKER, KIDNEY STONES. 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 History of Any Multi-Drug Resistant Organisms: None Reported Past Surgical History: Appendectomy, Cholecystectomy, Heart Catheterization, Joint Replacement, Pacemaker Additional Past Surgical History / Comment(s): Cory hip replacement, KIDNEY STONES, colonoscopy Past Anesthesia/Blood Transfusion Reactions: No Reported Reaction Type of Cardiac Device: Permanent Pacemaker Device Placement Date:: 2013 Past Psychological History: No Psychological Hx Reported Smoking Status: Never smoker Past Alcohol Use History: Occasional Past Drug Use History: Marijuana - Past Family History Sister(s) Family Medical History: Cancer Additional Family Medical History / Comment(s): Lymph nodes. Mother Family Medical History: COPD, Hypertension Father Family Medical History: COPD Brother(s) Family Medical History: No Reported History Daughter(s) Family Medical History: No Reported History Son(s) Family Medical History: No Reported History General Exam - General Exam Comments Initial Comments: General: Appears in no acute distress. HEAD: Normal with no signs of head trauma. EYES: EOMI. Pupils are 3 mm and equal bilaterally. ENT: Hearing grossly intact, normal oropharynx. RESPIRATORY: Clear breath sounds bilaterally. No wheezes, rales, or rhonchi. C/V: Regular rate and rhythm. S1 and S2 auscultated. Improved lower extremity pitting edema. Peripheral pulses 2+ intact throughout. ABD: Abd is soft, nontender, nondistended EXT: No obvious deformity. SKIN: No rashes or lesions observed on exposed skin. NEURO: Alert and oriented x 4. No focal deficits. Limitations: no limitations Course Vital Signs 10/08/24 10/08/24 10/08/24 10:51 10:59 11:10 Temperature 98.4 F Pulse Rate Pulse Rate [ 48 L Distribution Sales Manager ] Respiratory 16 20 Rate Blood Pressure 71/41 68/42 Blood Pressure 90/49 [Left Arm] O2 Sat by Pulse 97 Oximetry 10/08/24 10/08/24 10/08/24 11:25 11:30 11:57 Temperature Pulse Rate 45 L Pulse Rate [ 48 L 46 L Distribution Sales Manager ] Respiratory 20 20 Rate Blood Pressure 138/74 Blood Pressure 108/56 [Left Arm] O2 Sat by Pulse 98 Oximetry Medical Decision Making - Medical Decision Making Was pt. sent in by a medical professional or institution (, PA, ORANGE PICKER MACHINE OPERATOR, urgent care, hospital, or detention...) When possible be specific @ -No Did you speak to anyone other than the patient for history (EMS, parent, family, police, friend...)? What history was obtained from this source @ -No Did you review nursing and triage notes (agree or disagree)? Why? @ -I reviewed and agree with nursing and triage notes Were old charts reviewed (outside hosp., previous admission, EMS record, old EKG, old radiological studies, urgent care reports/EKG's, detention records)? Report findings @ -Reviewed charts from recent visit and earlier in September 2024 when I admitted the patient for CHF patient was discharged home last night new blood pressure medications. Differential Diagnosis (chest pain, altered mental status, abdominal pain women, abdominal pain men, vaginal bleeding, weakness, fever, dyspnea, syncope, headache, dizziness, GI bleed, back pain, seizure, CVA, palpatations, mental health, musculoskeletal)? @ -Dehydration, RENATE, polypharmacy, infection. This list is not all inclusive. EKG interpreted by me (3pts min.). @ -As above X-rays interpreted by me (1pt min.). @ -Chest x-ray reveals no obvious acute cardiopulmonary process. CT interpreted by me (1pt min.). @ -None done U/S interpreted by me (1pt. min.). @ -None done What testing was considered but not performed or refused? (CT, X-rays, U/S, labs)? Why? @ -None What meds were considered but not given or refused? Why? @ -None Did you discuss the management of the patient with other professionals (professionals i.e. DrShruti, PA, ORANGE PICKER MACHINE OPERATOR, lab, RT, psych nurse, addiction social worker, supervisor microwave, teacher, information systems security officer, watch case polisher)? Give summary @ -Discussed with Dr. Nair who requested holding the patient's Norvasc which was done. I also held the patient's hydralazine. Remainder the patient's new meds were reordered. Patient will be admitted for blood pressure monitoring and evaluation by cardiology. Was smoking cessation discussed for >3mins.? @ -No Was critical care preformed (if so, how long)? @ -No Were there social determinants of health that impacted care today? How? (Homelessness, low income, unemployed, alcoholism, drug addiction, transpor tation, low edu. Level, literacy, decrease access to med. care, fci, rehab)? @ -No Was there de-escalation of care discussed even if they declined (Discuss DNR or withdrawal of care, Hospice)? DNR status @ -No What co-morbidities impacted this encounter? (DM, HTN, Smoking, COPD, CAD, Cancer, CVA, ARF, Chemo, Hep., AIDS, mental health diagnosis, sleep apnea, morbid obesity)? @ -CHF, hypertension, A-fib on blood thinners Was patient admitted / discharged? Hospital course, mention meds given and route, prescriptions, significant lab abnormalities, going to OR and other pertinent info. @ -Patient presents emergency department with hypotension, near syncopal episodes and lightheadedness. Also this morning after taking all of his new blood pressure medications. Was discharged from the hospital last night after presenting for CHF exacerbation. Patient denies any acute complaints other than the lightheadedness at this time including denying chest pain or shortness of breath. Patient will be administered IV fluids, and initially 2 boluses were ordered but this was decreased to 1 bolus as patient's blood pressure did improve. Patient placed on maintenance fluids. Vitals initially showed a hypotensive episode on presentation of 71/41. In the room, patient was 68/42. Improved with fluids and monitoring. Remainder the vital signs within acceptable limits. Labs are remarkable for an RENATE with a slightly elevated BUN/creatinine of 41.48 I suspect likely secondary to diuresis. Patient's troponin did return slightly elevated at 0.048 but I suspect this is likely secondary to the RENATE as well as the hypotensive episodes. Will continue to trend. Patient given 324 mg of aspirin. On reevaluation, patient is feeling improved but we will admit for observation. Cardiology consulted. Troponin will be trended. I will hold the patient's hydralazine and patient's PCP Dr. Nair asked that I hold his Norvasc. This will be until he is evaluated by cardiology for some medication control. Hypotensive at episode seems to be likely secondary to polypharmacy and seems to be doing improved at this time. He was in agreement with this plan for admission. Dr. Nair accepted the admission. Undiagnosed new problem with uncertain prognosis? @ -No Drug Therapy requiring intensive monitoring for toxicity (Heparin, Nitro, Insulin, Cardizem)? @ -No Were any procedures done? @ -No Diagnosis/symptom? @ -Near syncope from hypotension likely from dehydration and polypharmacy, RENATE, elevated troponin Acute, or Chronic, or Acute on Chronic? @ -Acute Uncomplicated (without systemic symptoms) or Complicated (systemic symptoms)? @ -Complicated Side effects of treatment? @ -No Exacerbation, Progression, or Severe Exacerbation? @ -No Poses a threat to life or bodily function? How? (Chest pain, [place], [place], pneumonia, PE, COPD, DKA, ARF, appy, cholecystitis, CVA, Diverticulitis, Homicidal, Suicidal, threat to staff... and all critical care pts) @ -Unlikely at this time - Lab Data Result diagrams: 10/08/24 11:14 10/08/24 11:14 Lab Results 10/08/24 10/08/24 10/08/24 Range/Units 11:14 11:14 11:14 WBC 10.23 H (4.50-10.00) 10*3/uL RBC 4.96 (4.40-5.60) 10*6/uL Hgb 15.5 (13.0-17.0) g/dL Hct 44.9 (39.6-50.0) % MCV 90.5 (80.0-97.0) fL MCH 31.3 (27.0-32.0) pg MCHC 34.5 (32.0-37.0) g/dL Plt Count 338 (140-440) 10*3/uL MPV 9.1 L (9.5-12.2) fL Immature Gran % (Auto) 0.5 % Neutrophils % 65.5 % Lymphocytes % 22.7 % Monocytes % 9.3 % Eosinophils % 1.3 % Basophils % 0.7 % Immature Gran # 0.05 H (0.00-0.04) 10*3/uL Neutrophils # 6.71 (1.80-7.70) 10*3/uL Lymphocytes # 2.32 (0.90-5.00) 10*3/uL Monocytes # 0.95 (0.20-1.00) 10*3/uL Eosinophils # 0.13 (0.04-0.35) 10*3/uL Basophils # 0.07 (0.00-0.10) 10*3/uL Sodium 137 (137-145) mmol/L Potassium 4.6 (3.5-5.1) mmol/L Chloride 102 (98-107) mmol/L Carbon Dioxide 24 (22-30) mmol/L Anion Gap 11 mmol/L BUN 40 H (9-20) mg/dL Creatinine 1.48 H (0.66-1.25) mg/dL Est GFR (CKD-EPI)AfAm 54 (>60 ml/min/1.73 sqM) Est GFR (CKD-EPI)NonAf 47 (>60 ml/min/1.73 sqM) Glucose 172 H (74-99) mg/dL Plasma Lactic Acid Donaldo 1.5 (0.7-2.0) mmol/L Calcium 10.3 H (8.4-10.2) mg/dL Magnesium 2.3 (1.6-2.3) mg/dL Total Bilirubin 1.7 H (0.2-1.3) mg/dL AST 31 (17-59) U/L ALT 34 (4-49) U/L Alkaline Phosphatase 91 (38-126) U/L Troponin I (0.000-0.034) ng/mL Total Protein 8.1 (6.3-8.2) g/dL Albumin 4.6 (3.5-5.0) g/dL TSH 1.590 (0.465-4.680) mIU/L 10/08/24 Range/Units 11:14 WBC (4.50-10.00) 10*3/uL RBC (4.40-5.60) 10*6/uL Hgb (13.0-17.0) g/dL Hct (39.6-50.0) % MCV (80.0-97.0) fL MCH (27.0-32.0) pg MCHC (32.0-37.0) g/dL Plt Count (140-440) 10*3/uL MPV (9.5-12.2) fL Immature Gran % (Auto) % Neutrophils % % Lymphocytes % % Monocytes % % Eosinophils % % Basophils % % Immature Gran # (0.00-0.04) 10*3/uL Neutrophils # (1.80-7.70) 10*3/uL Lymphocytes # (0.90-5.00) 10*3/uL Monocytes # (0.20-1.00) 10*3/uL Eosinophils # (0.04-0.35) 10*3/uL Basophils # (0.00-0.10) 10*3/uL Sodium (137-145) mmol/L Potassium (3.5-5.1) mmol/L Chloride (98-107) mmol/L Carbon Dioxide (22-30) mmol/L Anion Gap mmol/L BUN (9-20) mg/dL Creatinine (0.66-1.25) mg/dL Est GFR (CKD-EPI)AfAm (>60 ml/min/1.73 sqM) Est GFR (CKD-EPI)NonAf (>60 ml/min/1.73 sqM) Glucose (74-99) mg/dL Plasma Lactic Acid Donaldo (0.7-2.0) mmol/L Calcium (8.4-10.2) mg/dL Magnesium (1.6-2.3) mg/dL Total Bilirubin (0.2-1.3) mg/dL AST (17-59) U/L ALT (4-49) U/L Alkaline Phosphatase (38-126) U/L Troponin I 0.048 H* (0.000-0.034) ng/mL Total Protein (6.3-8.2) g/dL Albumin (3.5-5.0) g/dL TSH (0.465-4.680) mIU/L - EKG Data -: EKG Interpreted by Me EKG Comments: 12-lead Electrocardiogram Interpretation Note EKG was reviewed and interpreted by myself. 12-lead ECG performed at 1107 is interpreted by me as revealing sinus pericardia with first-degree AV block at a rate of 55 beats per minute. [place] is normal. [place] interval is 211 ms. There is durations 98 ms. QTc is 447 ms.. There were no ST or T wave abnormalities to suggest myocardial ischemia or injury. R wave progression across the precordium was delayed. By my interpretation this EKG is non-diagnostic for acute ischemia. Disposition Clinical Impression: Elevated troponin, Near syncope, RENATE (acute kidney injury), Hypotension, Polypharmacy Disposition: ADMITTED IP TO THIS HOSP Condition: Stable Referrals: Justice Nair MD [Primary Care Provider] - 1-2 days Time of Disposition: 12:40
[2024-10-08 12:27] LABS: ALT 34 U/L (4-49); AST 31 U/L (17-59); African American GFR (CKD) 54 (>60 ml/min/1.73 sqM); Albumin 4.6 g/dL (3.5-5.0); Alkaline Phosphatase 91 U/L (38-126); Anion Gap 11 mmol/L; Blood Urea Nitrogen 40 mg/dL (9-20); Calcium 10.3 mg/dL (8.4-10.2); Carbon Dioxide 24 mmol/L (22-30); Chloride 102 mmol/L (98-107); Glucose 172 mg/dL (74-99); Magnesium 2.3 mg/dL (1.6-2.3); Non-African American GFR(CKD) 47 (>60 ml/min/1.73 sqM); Potassium 4.6 mmol/L (3.5-5.1); Sodium 137 mmol/L (137-145); Total Bilirubin 1.7 mg/dL (0.2-1.3); Total Protein 8.1 g/dL (6.3-8.2)
[2024-10-08] MEDS ORDERED: NALOXONE 0.4 MG/ML 1 ML VIAL IV PRN (12:48)
[2024-10-08] MEDS: SODIUM CHLORIDE 0.9% 1,000 ML IV ONE (13:08)
[2024-10-08] MEDS: ASPIRIN 81 MG PO STA (13:43)
[2024-10-08] MEDS: SODIUM CHLORIDE 0.9% 1,000 ML IV STA (14:45)
[2024-10-08] MEDS: carvediloL 6.25 MG TAB PO SCH (16:59)
[2024-10-08 17:21] LABS: Appearance,Urine Cloudy (Clear); Bilirubin,Urine Negative (Negative); Blood,Urine Negative (Negative); Color,Urine Yellow; Glucose,Urine (UA) 3+ (Negative); Hyaline Casts,Urine 22 /lpf (0-2); Ketones,Urine Negative (Negative); Leukocyte Esterase,Urine Negative (Negative); Mucus,Urine Moderate /hpf; Nitrite,Urine Negative (Negative); Protein,Urine Trace (Negative); RBC,Urine <1 /hpf (0-5); Specific Gravity,Urine 1.015 (1.001-1.035); Squamous Epithelial Cell,Urine <1 /hpf (0-4); Urobilinogen,Urine <2.0 mg/dL (<2.0); WBC,Urine 4 /hpf (0-5)
[2024-10-08] MEDS: APIXABAN 5 MG TAB PO SCH (21:27)
[2024-10-08] MEDS ORDERED: HYDROcodone/APAP 7.5-325MG 1 EACH TAB PO PRN (22:37)
[2024-10-09 07:31] VITALS: PULSE 47; RESP 16
[2024-10-09 08:17] LABS: Basophils # (A) 0.05 X 10*3/uL (0.00-0.10); Basophils % (A) 0.4 %; Eosinophils # (A) 0.15 X 10*3/uL (0.04-0.35); Eosinophils % (A) 1.2 %; HCT 42.9 % (39.6-50.0); Lymphocytes # (A) 2.41 X 10*3/uL (0.90-5.00); MCH 30.1 pg (27.0-32.0); MCHC 32.6 g/dL (32.0-37.0); MCV 92.3 FL (80.0-97.0); Mean Platelet Volume 9.5 FL (9.5-12.2); Monocytes # (A) 1.45 X 10*3/uL (0.20-1.00); NRBC Per 100 WBC 0 X 10*3/uL (0.00-0.01); Neutrophils # (A) 7.98 X 10*3/uL (1.80-7.70); Neutrophils % (A) 66.1 %; Platelet Count 287 X 10*3/uL (140-440); RBC 4.65 X 10*6/uL (4.40-5.60); RDW 13.8 % (11.5-14.5); WBC 12.08 X 10*3/uL (4.50-10.00)
[2024-10-09] MEDS ORDERED: ISOSORBIDE MONONITRATE ER 60 MG TAB.ER.24H PO SCH (09:00)
[2024-10-09] MEDS: CITALOPRAM HYDROBROMIDE 20 MG TAB PO SCH (09:13)
[2024-10-09] MEDS: ASPIRIN 81 MG PO SCH (09:13)
[2024-10-09] MEDS: ATORVASTATIN 40 MG TAB PO SCH (09:13)
[2024-10-09] MEDS: LOSARTAN 50 MG TAB PO SCH (09:13)
[2024-10-09] MEDS: BUMETANIDE 1 MG TAB PO SCH (09:13)
[2024-10-09] MEDS: DAPAGLIFLOZIN PROPANEDIOL 10 MG TABLET PO SCH (09:13)
[2024-10-09] MEDS: SPIRONOLACTONE 25 MG TAB PO SCH (09:13)
[2024-10-09] MEDS: ISOSORBIDE MONONITRATE ER 30 MG TAB.ER.24H PO SCH (09:17)
[2024-10-09 09:27] LABS: Blood Urea Nitrogen 44.2 mg/dL (9.0-27.0); Carbon Dioxide 23.6 mmol/L (21.6-31.8); Chloride 105 mmol/L (96-109); Glucose 111 mg/dL (70-110); Potassium 4.5 mmol/L (3.5-5.5); Sodium 136 mmol/L (135-145)
[2024-10-09 09:28] LABS: ALT 34 U/L (10-49); AST 29 U/L (14-35); Albumin 3.9 g/dL (3.8-4.9); Alkaline Phosphatase 89 U/L (41-126); Calcium 9.4 mg/dL (8.7-10.3); Total Bilirubin 0.7 mg/dL (0.3-1.2); Total Protein 6.9 g/dL (6.2-8.2)
--- NOTE | 2024-10-09 11:37 | P.CRDCN ---
History of Present Illness History of present illness: HISTORY OF PRESENTING ILLNESS: Patient is a 73-year-old known to Dr. Montes. He was just here and discharged 2 days ago. He presented back to the hospital with hypotension. Blood pressure on arrival was 70 systolic. He had no specific complaints other than weakness. EKG reveals sinus bradycardia with first-degree AV block heart rate of 55. Chest x-ray is negative for any acute cardiopulmonary process. Laboratory data reviewed, WBC 12, hemoglobin 14, platelets 287, sodium 136, potassium 4.5, creatinine 1.0, troponin 0.048, 0.031, 0.021 and TSH 1.59. Upon further discussion he admits he was taking all of his medications at the same time, so yesterday morning he took hydralazine, Bumex, Imdur, losartan, Aldactone, amlodipine and Coreg. Now blood pressure this morning is 175/76. PHYSICAL EXAMINATION: Neck: Brisk carotid upstroke, no jugular venous distention. Lungs: Clear to auscultation. Heart: Regular rate and rhythm, S1-S2, , no murmur or rub. Abdomen: Soft nontender, positive bowel sounds. Extremities: No edema, intact distal pulses. Neuro: Alert, oritented, no focal deficits. Detailed neuro exam was not performed. ASSESSMENT: Hypotension History of PPM for sick sinus syndrome Dyslipidemia Essential hypertension PLAN: Adjust medication as follows, amlodipine 5 mg is to be taken at bedtime only, Bumex 1 mg in the morning, Coreg 6.25 mg twice daily, losartan 100 mg daily in the morning, Aldactone 25 mg daily at noon time and Imdur will be decreased to 3 0 mg daily at bedtime. Discontinue hydralazine. The nurse will help him with the timing and write everything down. Stable for discharge from a cardiac perspective later on this afternoon if his blood pressure remains stable. Follow-up with Dr. Montes in 2 weeks. Nurse Practitioner note has been reviewed, I agree with a documented findings and plan of care. Patient was seen and examined. Past Medical History Past Medical History: Chest Pain / Angina, GERD/Reflux, Hypertension, Osteoarthritis (OA), Prostate Disorder Additional Past Medical History / Comment(s): hypoglycemia (caused a seizure), BPH, PACEMAKER, KIDNEY STONES. 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 History of Any Multi-Drug Resistant Organisms: None Reported Past Surgical History: Appendectomy, Cholecystectomy, Heart Catheterization, Joint Replacement, Pacemaker Additional Past Surgical History / Comment(s): Cory hip replacement, KIDNEY ST ONES, colonoscopy Past Anesthesia/Blood Transfusion Reactions: No Reported Reaction Type of Cardiac Device: Permanent Pacemaker Device Placement Date:: 2013 Past Psychological History: No Psychological Hx Reported Additional Psychological History / Comment(s): denies Smoking Status: Never smoker Past Alcohol Use History: Occasional Past Drug Use History: Marijuana Additional Drug Use History / Comment(s): MARIJUANA DAILY, instructed to hold 24 hrs prior to proceudre - Past Family History Sister(s) Family Medical History: Cancer Additional Family Medical History / Comment(s): Lymph nodes. Mother Family Medical History: COPD, Hypertension Father Family Medical History: COPD Brother(s) Family Medical History: No Reported History Daughter(s) Family Medical History: No Reported History Son(s) Family Medical History: No Reported History Medications and Allergies Home Medications Medication Instructions Recorded Confirmed Type Citalopram Hydrobromide [CeleXA] 40 mg PO DAILY 07/25/14 10/08/24 History Finasteride [Proscar] 5 mg PO DAILY 04/28/17 10/08/24 History HYDROcodone/APAP 7.5-325MG [[place] 1 tab PO TID PRN 10/11/18 10/08/24 History 7.5-325] Atorvastatin [Lipitor] 40 mg PO DAILY 07/24/21 10/08/24 History Isosorbide Mononitrate ER [Imdur] 60 mg PO DAILY 07/24/21 10/08/24 History Losartan Potassium [Cozaar] 100 mg PO DAILY 07/24/21 10/08/24 History Tamsulosin [Flomax] 0.4 mg PO DAILY 02/08/23 10/08/24 History Aspirin [Adult Low Dose Aspirin EC] 81 mg PO DAILY 10/04/23 10/08/24 History Apixaban [Eliquis] 5 mg PO BID #180 tab 01/26/24 10/08/24 Rx Bumetanide [BUMEX] 1 mg PO DAILY 30 Days #30 tab 10/07/24 10/08/24 Rx Spironolactone [Aldactone] 25 mg PO DAILY 30 Days #30 tab 10/07/24 10/08/24 Rx amLODIPine [Norvasc] 5 mg PO BID 30 Days #60 tab 10/07/24 10/08/24 Rx carvediloL [Coreg] 6.25 mg PO BID-W/MEALS 30 Days #60 10/07/24 10/08/24 Rx tab hydrALAZINE HCL [Apresoline] 50 mg PO TID 30 Days #90 tab 10/07/24 10/08/24 Rx Allergies Allergy/AdvReac Type Severity Reaction Status Date / Time nickel Allergy Rash/Hives Verified 10/08/24 13:27 Physical Exam Vitals: Vital Signs Temp Pulse Pulse Resp BP BP Pulse Ox 10/09/24 07:00 97.9 F 47 L 16 175/76 97 10/09/24 02:00 98.0 F 51 L 17 104/49 96 10/08/24 21:51 52 L 10/08/24 21:29 52 L 18 136/90 97 10/08/24 20:00 98.0 F 52 L 18 135/71 100 10/08/24 16:59 58 L 16 122/68 97 10/08/24 15:54 60 18 117/84 97 10/08/24 14:43 50 L 18 131/70 98 10/08/24 13:45 51 L 14 130/67 97 10/08/24 11:57 45 L 20 138/74 98 Intake and Output 10/08/24 10/09/24 10/09/24 22:59 06:59 14:59 Other: Voiding Method Toilet # Voids 1 3 Weight 117.934 kg Results 10/09/24 04:34 10/09/24 04:34 Cardiac Enzymes 10/08/24 10/08/24 10/08/24 Range/Units 11:14 11:14 14:07 AST 31 (17-59) U/L Troponin I 0.048 H* 0.031 (0.000-0.034) ng/mL 10/08/24 10/09/24 Range/Units 17:39 04:34 AST 29 (17-59) U/L Troponin I 0.021 (0.000-0.034) ng/mL CBC 10/09/24 Range/Units 04:34 WBC 12.08 H (4.50-10.00) X 10*3/uL RBC 4.65 (4.40-5.60) X 10*6/uL Hgb 14.0 (13.0-17.0) g/dL Hct 42.9 (39.6-50.0) % Plt Count 287 (140-440) X 10*3/uL Comprehensive Metabolic Panel 10/08/24 10/09/24 Range/Units 11:14 04:34 Sodium 137 136 (137-145) mmol/L Potassium 4.6 4.5 (3.5-5.1) mmol/L Chloride 102 105 (98-107) mmol/L Carbon Dioxide 24 23.6 (22-30) mmol/L BUN 40 H 44.2 H (9-20) mg/dL Creatinine 1.48 H 1.0 (0.66-1.25) mg/dL Glucose 172 H 111 H (74-99) mg/dL Calcium 10.3 H 9.4 (8.4-10.2) mg/dL AST 31 29 (17-59) U/L ALT 34 34 (4-49) U/L Alkaline Phosphatase 91 89 (38-126) U/L Total Protein 8.1 6.9 (6.3-8.2) g/dL Albumin 4.6 3.9 (3.5-5.0) g/dL Current Medications Generic Name Dose Route Start Last Admin Trade Name Freq PRN Reason Stop Dose Admin Hydrocodone Bitart/Acetaminophen 1 each 10/08/24 22:37 Hydrocodone/Apap 7.5-325mg 1 Each Tab PO TID PRN Pain Amlodipine Besylate 5 mg 10/09/24 21:00 Amlodipine 5 Mg Tab PO HS BRYCE Apixaban 5 mg 10/08/24 21:00 10/09/24 09:13 Apixaban 5 Mg Tab PO 5 mg BID BRYCE Administration Protocol Aspirin 81 mg 10/09/24 09:00 10/09/24 09:13 Aspirin 81 Mg PO 81 mg DAILY BRYCE Administration Atorvastatin Calcium 40 mg 10/09/24 09:00 10/09/24 09:13 Atorvastatin 40 Mg Tab PO 40 mg DAILY BRYCE Administration Bumetanide 1 mg 10/09/24 09:00 10/09/24 09:13 Bumetanide 1 Mg Tab PO 1 mg DAILY BRYCE Administration Carvedilol 6.25 mg 10/08/24 17:30 10/09/24 09:51 Carvedilol 6.25 Mg Tab PO 6.25 mg BID-W/MEALS BRYCE Administration Citalopram Hydrobromide 40 mg 10/09/24 09:00 10/09/24 09:13 Citalopram Hydrobromide 20 Mg Tab PO 40 mg DAILY BRYCE Administration Dapagliflozin 10 mg 10/09/24 09:00 10/09/24 09:13 Dapagliflozin Propanediol 10 Mg Tablet PO 10 mg DAILY BRYCE Administration Isosorbide Mononitrate 30 mg 10/09/24 09:00 10/09/24 09:17 Isosorbide Mononitrate Er 30 Mg Tab.Er.24h PO 30 mg DAILY BRYCE Administration Losartan Potassium 100 mg 10/09/24 09:00 10/09/24 09:13 Losartan 50 Mg Tab PO 100 mg DAILY BRYCE Administration Naloxone HCl 0.2 mg 10/08/24 12:48 Naloxone 0.4 Mg/Ml 1 Ml Vial IV Q2M PRN Opioid Reversal Spironolactone 25 mg 10/09/24 09:00 10/09/24 09:13 Spironolactone 25 Mg Tab PO 25 mg DAILY BRYCE Administration Intake and Output 10/08/24 10/09/24 10/09/24 22:59 06:59 14:59 Other: Voiding Method Toilet # Voids 1 3 Weight 117.934 kg 10/09/24 04:34 10/09/24 04:34
[2024-10-09 14:21] VITALS: BP 146/65; TEMP 98.4
--- NOTE | 2024-10-09 16:57 | P.HPIM ---
History of Present Illness H&P Date: 10/09/24 Ramírez Salter, is a 73-year-old male who presented to [facility] emergency room with a chief complaint of hypotension and dizziness, patient was recently admitted to [facility], at that time he had severely elevated blood pressure, and evidence of acute exacerbation of congestive heart failure, his medications were adjusted and he was discharged home, however at home his blood pressure was significantly low around 64/40, patient was feeling dizzy and he decided to return to emergency room. He was evaluated in the emergency room he was started on IV fluid and was admitted to telemetry floor. He was evaluated in the emergency room vital examination on presentation revealed a temperature of 98.4 pulse 48 respiration 16 blood pressure 71/41 pulse ox 97% on room air Laboratory data revealed a white blood count of 10.23 hemoglobin 15.5 platelet count 338 BUN 40 creatinine 1.48 Testing in the emergency room revealed chest x-ray revealed no acute cardiopulm onary process Patient was admitted to medical floor for further evaluation and treatment Past Medical History Past Medical History: Chest Pain / Angina, GERD/Reflux, Hypertension, Osteoarthritis (OA), Prostate Disorder Additional Past Medical History / Comment(s): hypoglycemia (caused a seizure), BPH, PACEMAKER, KIDNEY STONES. 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 History of Any Multi-Drug Resistant Organisms: None Reported Past Surgical History: Appendectomy, Cholecystectomy, Heart Catheterization, Joint Replacement, Pacemaker Additional Past Surgical History / Comment(s): Cory hip replacement, KIDNEY STONES, colonoscopy Past Anesthesia/Blood Transfusion Reactions: No Reported Reaction Type of Cardiac Device: Permanent Pacemaker Device Placement Date:: 2013 Past Psychological History: No Psychological Hx Reported Additional Psychological History / Comment(s): denies Smoking Status: Never smoker Past Alcohol Use History: Occasional Past Drug Use History: Marijuana Additional Drug Use History / Comment(s): MARIJUANA DAILY, instructed to hold 24 hrs prior to proceudre - Past Family History Sister(s) Family Medical History: Cancer Additional Family Medical History / Comment(s): Lymph nodes. Mother Family Medical History: COPD, Hypertension Father Family Medical History: COPD Brother(s) Family Medical History: No Reported History Daughter(s) Family Medical History: No Reported History Son(s) Family Medical History: No Reported History Medications and Allergies Home Medications Medication Instructions Recorded Confirmed Type Citalopram Hydrobromide [CeleXA] 40 mg PO DAILY 07/25/14 10/08/24 History Finasteride [Proscar] 5 mg PO DAILY 04/28/17 10/08/24 History HYDROcodone/APAP 7.5-325MG [[place] 1 tab PO TID PRN 10/11/18 10/08/24 History 7.5-325] Atorvastatin [Lipitor] 40 mg PO DAILY 07/24/21 10/08/24 History Losartan Potassium [Cozaar] 100 mg PO DAILY 07/24/21 10/08/24 History Tamsulosin [Flomax] 0.4 mg PO DAILY 02/08/23 10/08/24 History Aspirin [Adult Low Dose Aspirin EC] 81 mg PO DAILY 10/04/23 10/08/24 History Apixaban [Eliquis] 5 mg PO BID #180 tab 01/26/24 10/08/24 Rx Bumetanide [BUMEX] 1 mg PO DAILY 30 Days #30 tab 10/07/24 10/08/24 Rx Spironolactone [Aldactone] 25 mg PO DAILY 30 Days #30 tab 10/07/24 10/08/24 Rx carvediloL [Coreg] 6.25 mg PO BID-W/MEALS 30 Days #60 10/07/24 10/08/24 Rx tab Dapagliflozin Propanediol [Farxiga] 10 mg PO DAILY 30 Days #30 tab 10/09/24 Rx Isosorbide Mononitrate ER [Imdur] 30 mg PO DAILY 30 Days #30 tab 10/09/24 Rx amLODIPine [Norvasc] 5 mg PO HS 30 Days #30 tab 10/09/24 Rx Allergies Allergy/AdvReac Type Severity Reaction Status Date / Time nickel Allergy Rash/Hives Verified 10/08/24 13:27 Physical Exam Vitals: Vital Signs Temp Pulse Pulse Resp BP BP Pulse Ox 10/09/24 07:00 97.9 F 47 L 16 175/76 97 10/09/24 02:00 98.0 F 51 L 17 104/49 96 10/08/24 21:51 52 L 10/08/24 21:29 52 L 18 136/90 97 10/08/24 20:00 98.0 F 52 L 18 135/71 100 10/08/24 16:59 58 L 16 122/68 97 10/08/24 15:54 60 18 117/84 97 10/08/24 14:43 50 L 18 131/70 98 10/08/24 13:45 51 L 14 130/67 97 10/08/24 11:57 45 L 20 138/74 98 10/08/24 11:30 46 L 20 108/56 10/08/24 11:25 48 L 10/08/24 11:10 48 L 20 90/49 10/08/24 10:59 68/42 10/08/24 10:51 98.4 F 16 71/41 97 Intake and Output 10/08/24 10/09/24 10/09/24 22:59 06:59 14:59 Other: Voiding Method Toilet # Voids 1 3 Weight 117.934 kg In general patient is alert and oriented x 3 in no distress HEENT head normocephalic and atraumatic Neck is supple no JVD no goiter no lymphadenopathy no carotid bruit Chest examination is clear to auscultation no crackles no wheezing Cardiac exam reveals regular heart sounds S1 and S2 no gallops no murmurs Abdomen is soft nontender no organomegaly with normal bowel sounds Extremity exam reveals no edema no cyanosis or clubbing Neurological examination reveals no gross focal deficits Results CBC & Chem 7: 10/09/24 04:34 10/09/24 04:34 Labs: Abnormal Lab Results - Last 24 Hours (Table) 10/08/24 10/08/24 10/08/24 Range/Units 11:14 11:14 11:14 WBC 10.23 H (4.50-10.00) 10*3/uL MPV 9.1 L (9.5-12.2) fL Immature Gran # 0.05 H (0.00-0.04) 10*3/uL BUN 40 H (9-20) mg/dL Creatinine 1.48 H (0.66-1.25) mg/dL Glucose 172 H (74-99) mg/dL Calcium 10.3 H (8.4-10.2) mg/dL Total Bilirubin 1.7 H (0.2-1.3) mg/dL Troponin I 0.048 H* (0.000-0.034) ng/mL Urine Protein (Negative) Urine Glucose (UA) (Negative) Hyaline Casts (0-2) /lpf Urine Mucus (None) /hpf 10/08/24 Range/Units 17:07 WBC (4.50-10.00) 10*3/uL MPV (9.5-12.2) fL Immature Gran # (0.00-0.04) 10*3/uL BUN (9-20) mg/dL Creatinine (0.66-1.25) mg/dL Glucose (74-99) mg/dL Calcium (8.4-10.2) mg/dL Total Bilirubin (0.2-1.3) mg/dL Troponin I (0.000-0.034) ng/mL Urine Protein Trace H (Negative) Urine Glucose (UA) 3+ H (Negative) Hyaline Casts 22 H (0-2) /lpf Urine Mucus Moderate H (None) /hpf Thrombosis Risk Factor Assmnt - Choose All That Apply Any of the Below Risk Factors Present?: Yes Each Factor Represents 1 point: Obesity (BMI >25) Other Risk Factors: Yes Each Risk Factor Represents 2 Points: Age 61-74 years Other congenital or acquired thrombophilia - If yes, enter type in comment: No Thrombosis Risk Factor Assessment Total Risk Factor Score: 3 Thrombosis Risk Factor Assessment Level: Moderate Risk Assessment and Plan Plan: Dizziness with hypotension, related to multiple cardiac medications Underlying history of cardiomyopathy Recent admission with acute on chronic systolic and diastolic congestive heart failure Underlying history of hypertension Underlying history of hyperlipidemia Underlying history of paroxysmal atrial fibrillation Underlying history of carotid stenosis Underlying history of osteoarthritis Underlying history of benign prostatic hypertrophy Underlying history of diabetes mellitus Underlying history of kidney stone At this time patient is admitted to telemetry floor Home medications reviewed and reordered At this time we will hold amlodipine and hydralazine continue with IV fluid with gentle hydration Consult cardiology monitor blood pressure closely
--- NOTE | 2024-10-09 16:59 | P.DS ---
Providers Date of admission: 10/08/24 12:49 Expected date of discharge: 10/09/24 Attending physician: Justice Nair Consults: 10/08/24 12:45 Consult Physician Routine Consulting Provider: [facility] Consult Reason/Comments: elevated troponin, hypotensive episode likely from polypharmacy Do you want consulting provider notified?: Yes Primary care physician: Justice Korey [facility] Course: Diagnosis on discharge: Dizziness with hypotension, related to multiple cardiac medications Underlying history of cardiomyopathy Recent admission with acute on chronic systolic and diastolic congestive heart failure Underlying history of hypertension Underlying history of hyperlipidemia Underlying history of paroxysmal atrial fibrillation Underlying history of carotid stenosis Underlying history of osteoarthritis Underlying history of benign prostatic hypertrophy Underlying history of diabetes mellitus Underlying history of kidney stone Hospital course: Ramírez Salter, is a 73-year-old male who presented to [facility] emergency room with a chief complaint of hypotension and dizziness, patient was recently admitted to [facility], at that time he had severely elevated blood pressure, and evidence of acute exacerbation of congestive heart failure, his medications were adjusted and he was discharged home, however at home his blood pressure was significantly low around 64/40, patient was feeling dizzy and he decided to return to emergency room. He was evaluated in the e mergency room he was started on IV fluid and was admitted to telemetry floor. He was evaluated in the emergency room vital examination on presentation revealed a temperature of 98.4 pulse 48 respiration 16 blood pressure 71/41 pulse ox 97% on room air Laboratory data revealed a white blood count of 10.23 hemoglobin 15.5 platelet count 338 BUN 40 creatinine 1.48 Testing in the emergency room revealed chest x-ray revealed no acute cardiopulmonary process Patient was admitted to medical floor for further evaluation and treatment On 10/09/2024 patient was seen and examined on the medical floor he is feeling better and denies any dizziness at this time blood pressure up to normal range, patient was evaluated by cardiology, during this admission amlodipine was decreased to 5 mg once daily, hydralazine was discontinued, and Imdur dose was decreased to 30 mg daily, patient seems to be comfortable, blood pressure is in normal range he will be discharged to home today, will follow in our office in 2 days, patient was instructed to call if having any issues with his blood pressure Patient Condition at Discharge: Stable Plan - Discharge Summary Discharge Rx Participant: No New Discharge Prescriptions: New Dapagliflozin Propanediol [Farxiga] 10 mg PO DAILY 30 Days #30 tab Isosorbide Mononitrate ER [Imdur] 30 mg PO DAILY 30 Days #30 tab amLODIPine [Norvasc] 5 mg PO HS 30 Days #30 tab Continue Citalopram Hydrobromide [CeleXA] 40 mg PO DAILY Finasteride [Proscar] 5 mg PO DAILY HYDROcodone/APAP 7.5-325MG [[place] 7.5-325] 1 tab PO TID PRN PRN Reason: Pain Apixaban [Eliquis] 5 mg PO BID #180 tab Spironolactone [Aldactone] 25 mg PO DAILY 30 Days #30 tab Losartan Potassium [Cozaar] 100 mg PO DAILY Atorvastatin [Lipitor] 40 mg PO DAILY Tamsulosin [Flomax] 0.4 mg PO DAILY Aspirin [Adult Low Dose Aspirin EC] 81 mg PO DAILY Bumetanide [BUMEX] 1 mg PO DAILY 30 Days #30 tab carvediloL [Coreg] 6.25 mg PO BID-W/MEALS 30 Days #60 tab Discontinued hydrALAZINE HCL [Apresoline] 50 mg PO TID 30 Days #90 tab Isosorbide Mononitrate ER [Imdur] 60 mg PO DAILY amLODIPine [Norvasc] 5 mg PO BID 30 Days #60 tab Discharge Medication List Citalopram Hydrobromide [CeleXA] 40 mg PO DAILY 07/25/14 [History] Finasteride [Proscar] 5 mg PO DAILY 04/28/17 [History] HYDROcodone/APAP 7.5-325MG [[place] 7.5-325] 1 tab PO TID PRN 10/11/18 [History] Atorvastatin [Lipitor] 40 mg PO DAILY 07/24/21 [History] Losartan Potassium [Cozaar] 100 mg PO DAILY 07/24/21 [History] Tamsulosin [Flomax] 0.4 mg PO DAILY 02/08/23 [History] Aspirin [Adult Low Dose Aspirin EC] 81 mg PO DAILY 10/04/23 [History] Apixaban [Eliquis] 5 mg PO BID #180 tab 01/26/24 [Rx] Bumetanide [BUMEX] 1 mg PO DAILY 30 Days #30 tab 10/07/24 [Rx] Spironolactone [Aldactone] 25 mg PO DAILY 30 Days #30 tab 10/07/24 [Rx] carvediloL [Coreg] 6.25 mg PO BID-W/MEALS 30 Days #60 tab 10/07/24 [Rx] Dapagliflozin Propanediol [Farxiga] 10 mg PO DAILY 30 Days #30 tab 10/09/24 [Rx] Isosorbide Mononitrate ER [Imdur] 30 mg PO DAILY 30 Days #30 tab 10/09/24 [Rx] amLODIPine [Norvasc] 5 mg PO HS 30 Days #30 tab 10/09/24 [Rx] Follow up Appointment(s)/Referral(s): Justice Nair MD [Primary Care Provider] - 1-2 days Patient Instructions/Handouts: Hypotension (DC)
[2024-10-09] MEDS ORDERED: amLODIPine 5 MG TAB PO SCH (21:00)
== END 2024-10-09 17:00 | disposition home or self-care (01) ==
LOC: EC 10:50 → 6NMEDSUR 12:49
PROVIDERS: ADMIT Internal Medicine; ATTEND Internal Medicine
DX: R42 Dizziness and giddiness (principal); I95.9 Hypotension, unspecified; I11.0 Hypertensive heart disease with heart failure; I50.42 Chronic combined systolic (congestive) and diastolic (congestive) heart failure; I48.0 Paroxysmal atrial fibrillation; N17.9 Acute kidney failure, unspecified; N40.0 Benign prostatic hyperplasia without lower urinary tract symptoms; K21.9 Gastro-esophageal reflux disease without esophagitis; E78.5 Hyperlipidemia, unspecified; I49.5 Sick sinus syndrome; E11.9 Type 2 diabetes mellitus without complications; M19.90 Unspecified osteoarthritis, unspecified site; I65.29 Occlusion and stenosis of unspecified carotid artery; I42.9 Cardiomyopathy, unspecified; Z87.442 Personal history of urinary calculi; Z95.0 Presence of cardiac pacemaker; Z79.01 Long term (current) use of anticoagulants; Z79.82 Long term (current) use of aspirin; Z79.84 Long term (current) use of oral hypoglycemic drugs; Z79.899 Other long term (current) drug therapy
CPT/HCPCS: 96361 ×3; 96360; 99285; 36415; 93005; 80053 ×2; 83605; 83735; 84443; 84484; 85025 ×2; 81001; 71045; G0378 ×2

== ENCOUNTER 2024-12-03 11:25 | Emergency (ER) | payer MEDICARE ==
[2024-12-03 11:31] VITALS: RESP 18; TEMP 98.1
--- NOTE | 2024-12-03 11:39 | ED ---
General Adult HPI - General Chief complaint: Chest Pain Stated complaint: Chest pain Time Seen by Provider: 12/03/24 11:26 Source: patient, EMS, RN notes reviewed Mode of arrival: EMS Limitations: no limitations - History of Present Illness Initial comments: Patient is a 74-year-old male present to the emergency department with concerns with chest discomfort. Onset of symptoms was while walking into his doctor's office around an hour ago. Discomfort is now resolved. Discomfort did feel like pressure with radiation up towards the jaw. Patient did have associated dyspnea. No nausea or vomiting. No diaphoresis. Patient believes he may have had similar symptoms previously however it has been quite a while. - Related Data Home Medications Medication Instructions Recorded Confirmed Citalopram Hydrobromide [CeleXA] 40 mg PO DAILY 07/25/14 10/08/24 Finasteride [Proscar] 5 mg PO DAILY 04/28/17 10/08/24 HYDROcodone/APAP 7.5-325MG [[place] 1 tab PO TID PRN 10/11/18 10/08/24 7.5-325] Atorvastatin [Lipitor] 40 mg PO DAILY 07/24/21 10/08/24 Losartan Potassium [Cozaar] 100 mg PO DAILY 07/24/21 10/08/24 Tamsulosin [Flomax] 0.4 mg PO DAILY 02/08/23 10/08/24 Aspirin [Adult Low Dose Aspirin EC] 81 mg PO DAILY 10/04/23 10/08/24 Previous Rx's Medication Instructions Recorded Apixaban [Eliquis] 5 mg PO BID #180 tab 01/26/24 Bumetanide [BUMEX] 1 mg PO DAILY 30 Days #30 tab 10/07/24 Spironolactone [Aldactone] 25 mg PO DAILY 30 Days #30 tab 10/07/24 carvediloL [Coreg] 6.25 mg PO BID-W/MEALS 30 Days #60 10/07/24 tab Dapagliflozin Propanediol [Farxiga] 10 mg PO DAILY 30 Days #30 tab 10/09/24 Isosorbide Mononitrate ER [Imdur] 30 mg PO DAILY 30 Days #30 tab 10/09/24 amLODIPine [Norvasc] 5 mg PO HS 30 Days #30 tab 10/09/24 Allergies Allergy/AdvReac Type Severity Reaction Status Date / Time nickel Allergy Rash/Hives Verified 12/03/24 11:31 Review of Systems ROS Statement: Those systems with pertinent positive or pertinent negative responses have been documented in the HPI. ROS Other: All systems not noted in ROS Statement are negative. Constitutional: Denies: fever Eyes: Denies: eye pain ENT: Denies: ear pain Respiratory: Reports: as per HPI Cardiovascular: Reports: as per HPI, chest pain Gastrointestinal: Denies: abdominal pain Musculoskeletal: Denies: back pain Past Medical History Past Medical History: Chest Pain / Angina, GERD/Reflux, Hypertension, Osteoarthritis (OA), Prostate Disorder Additional Past Medical History / Comment(s): hypoglycemia (caused a seizure), BPH, PACEMAKER, KIDNEY STONES. 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 History of Any Multi-Drug Resistant Organisms: None Reported Past Surgical History: Appendectomy, Cholecystectomy, Heart Catheterization, Joint Replacement, Pacemaker Additional Past Surgical History / Comment(s): Cory hip replacement, KIDNEY STONES, colonoscopy Past Anesthesia/Blood Transfusion Reactions: No Reported Reaction Type of Cardiac Device: Permanent Pacemaker Device Placement Date:: 2013 Past Psychological History: No Psychological Hx Reported Smoking Status: Never smoker Past Alcohol Use History: Occasional Past Drug Use History: Marijuana - Past Family History Sister(s) Family Medical History: Cancer Additional Family Medical History / Comment(s): Lymph nodes. Mother Family Medical History: COPD, Hypertension Father Family Medical History: COPD Brother(s) Family Medical History: No Reported History Daughter(s) Family Medical History: No Reported History Son(s) Family Medical History: No Reported History General Exam Limitations: no limitations General appearance: alert, in no apparent distress Head exam: Present: normocephalic Eye exam: Present: normal appearance Neck exam: Present: normal inspection Respiratory exam: Present: normal lung sounds bilaterally. Absent: chest wall tenderness Cardiovascular Exam: Present: regular rate, normal rhythm, normal heart sounds Expanded Peripheral pulses: 2+: Radial (R), Radial (L), Posterior Tibialis (R), Posterior Tibialis (L) GI/Abdominal exam: Present: soft. Absent: tenderness, pulsatile mass Extremities exam: Present: normal inspection. Absent: pedal edema, calf tenderness Neurological exam: Present: alert Psychiatric exam: Present: normal affect, normal mood Skin exam: Present: normal color Course Vital Signs 07/08/25 07/08/25 11:26 13:01 Temperature 98.1 F Pulse Rate 66 53 L Respiratory 18 18 Rate Blood Pressure 131/81 126/87 O2 Sat by Pulse 95 97 Oximetry EKG Findings - EKG Results: EKG: interpreted by ERMD (Inferior and lateral T wave inversion.), sinus rhythm, normal axis, normal QRS EKG shows: bradycardia Medical Decision Making - Medical Decision Making Was pt. sent in by a medical professional or institution (, PA, [employer] MEMBER, urgent care, hospital, or snf...) When possible be specific @ -Patient was sent from Dr. Nari's office Did you speak to anyone other than the patient for history (EMS, parent, family, police, friend...)? What history was obtained from this source @ -No Did you review nursing and triage notes (agree or disagree)? Why? @ -I reviewed and agree with nursing and triage notes Were old charts reviewed (outside hosp., previous admission, EMS record, old EKG, old radiological studies, urgent care reports/EKG's, snf records)? Report findings @ -No old charts were reviewed Differential Diagnosis (chest pain, altered mental status, abdominal pain women, abdominal pain men, vaginal bleeding, weakness, fever, dyspnea, syncope, headache, dizziness, GI bleed, back pain, seizure, CVA, palpatations, mental health, musculoskeletal)? @ -Differential Chest Pain: Stable Angina, Unstable Angina, STEMI, NSTEMI Aortic Dissection, Pneumothorax, Musculoskeletal, Esophageal Spasm GERD, Cholecystitis, Pancreatitis, Zoster, this is not meant to be an all-inclusive list. EKG interpreted by me (3pts min.). @ -As above X-rays interpreted by me (1pt min.). @ -Chest x-ray shows no acute process CT interpreted by me (1pt min.). @ -None done U/S interpreted by me (1pt. min.). @ -None done What testing was considered but not performed or refused? (CT, X-rays, U/S, labs)? Why? @ -None What meds were considered but not given or refused? Why? @ -None Did you discuss the management of the patient with other professionals (professionals i.e. , DEANNA, [employer] MEMBER, lab, RT, psych nurse, social worker psychiatric, digital cartographic technician, teacher, gunnery/ordnance officer, correctional case manager)? Give summary @ -Case was discussed with Dr. Nair who did advise patient to come to the emergency department and will admit his patient Was smoking cessation discussed for >3mins.? @ -No Was critical care preformed (if so, how long)? @ -No Were there social determinants of health that impacted care today? How? (Homelessness, low income, unemployed, alcoholism, drug addiction, transportation, low edu. Level, literacy, decrease access to med. care, prison, rehab)? @ -No Was there de-escalation of care discussed even if they declined (Discuss DNR or withdrawal of care, Hospice)? DNR status @ -No What co-morbidities impacted this encounter? (DM, HTN, Smoking, COPD, CAD, Cancer, CVA, ARF, Chemo, Hep., AIDS, mental health diagnosis, sleep apnea, morbid obesity)? @ -None Was patient admitted / discharged? Hospital course, mention meds given and route, prescriptions, significant lab abnormalities, going to OR and other pertinent info. @ -Patient presents with chest discomfort, resolved by arrival time. Initial troponin unremarkable. Patient does have T wave inversion in EKG. Patient will be admitted with cardiac consult. Patient reevaluated and updated. Admission orders written. Undiagnosed new problem with uncertain prognosis? @ -No Drug Therapy requiring intensive monitoring for toxicity (Heparin, Nitro, Insulin, Cardizem)? @ -No Were any procedures done? @ -No Diagnosis/symptom? @ -Chest pain Acute, or Chronic, or Acute on Chronic? @ -Acute Uncomplicated (without systemic symptoms) or Complicated (systemic symptoms)? @ -Default Side effects of treatment? @ -No Exacerbation, Progression, or Severe Exacerbation? @ -No Poses a threat to life or bodily function? How? (Chest pain, [place], [place], pneumonia, PE, COPD, DKA, ARF, appy, cholecystitis, CVA, Diverticulitis, Homicidal, Suicidal, threat to staff... and all critical care pts) @ -Threat to cardiac function - Lab Data Result diagrams: 12/03/24 11:49 12/03/24 11:49 Lab Results 12/03/24 12/03/24 12/03/24 Range/Units 11:49 11:49 11:49 WBC 8.38 (4.50-10.00) 10*3/uL RBC 4.44 (4.40-5.60) 10*6/uL Hgb 14.0 (13.0-17.0) g/dL Hct 40.2 (39.6-50.0) % MCV 90.5 (80.0-97.0) fL MCH 31.5 (27.0-32.0) pg MCHC 34.8 (32.0-37.0) g/dL Plt Count 268 (140-440) 10*3/uL MPV 9.1 L (9.5-12.2) fL Immature Gran % (Auto) 0.2 % Neutrophils % 66.8 % Lymphocytes % 23.6 % Monocytes % 8.0 % Eosinophils % 0.8 % Basophils % 0.6 % Immature Gran # 0.02 (0.00-0.04) 10*3/uL Neutrophils # 5.59 (1.80-7.70) 10*3/uL Lymphocytes # 1.98 (0.90-5.00) 10*3/uL Monocytes # 0.67 (0.20-1.00) 10*3/uL Eosinophils # 0.07 (0.04-0.35) 10*3/uL Basophils # 0.05 (0.00-0.10) 10*3/uL PT 12.1 (10.0-12.5) sec INR 1.1 (<1.2) APTT 22.3 (22.0-30.0) sec D-Dimer 0.31 (<0.60) mg/L FEU Sodium 138 (137-145) mmol/L Potassium 4.9 (3.5-5.1) mmol/L Chloride 104 (98-107) mmol/L Carbon Dioxide 30 (22-30) mmol/L Anion Gap 4 mmol/L BUN 23 H (9-20) mg/dL Creatinine 0.71 (0.66-1.25) mg/dL Est GFR (CKD-EPI)AfAm >90 (>60 ml/min/1.73 sqM) Est GFR (CKD-EPI)NonAf >90 (>60 ml/min/1.73 sqM) Glucose 115 H (74-99) mg/dL Calcium 9.6 (8.4-10.2) mg/dL Magnesium 2.1 (1.6-2.3) mg/dL Total Bilirubin 1.1 (0.2-1.3) mg/dL AST 33 (17-59) U/L ALT 23 (4-49) U/L Alkaline Phosphatase 72 (38-126) U/L Troponin I (0.000-0.034) ng/mL NT-Pro-B Natriuret Pep 763 pg/mL Total Protein 7.6 (6.3-8.2) g/dL Albumin 4.4 (3.5-5.0) g/dL 12/03/24 Range/Units 11:49 WBC (4.50-10.00) 10*3/uL RBC (4.40-5.60) 10*6/uL Hgb (13.0-17.0) g/dL Hct (39.6-50.0) % MCV (80.0-97.0) fL MCH (27.0-32.0) pg MCHC (32.0-37.0) g/dL Plt Count (140-440) 10*3/uL MPV (9.5-12.2) fL Immature Gran % (Auto) % Neutrophils % % Lymphocytes % % Monocytes % % Eosinophils % % Basophils % % Immature Gran # (0.00-0.04) 10*3/uL Neutrophils # (1.80-7.70) 10*3/uL Lymphocytes # (0.90-5.00) 10*3/uL Monocytes # (0.20-1.00) 10*3/uL Eosinophils # (0.04-0.35) 10*3/uL Basophils # (0.00-0.10) 10*3/uL PT (10.0-12.5) sec INR (<1.2) APTT (22.0-30.0) sec D-Dimer (<0.60) mg/L FEU Sodium (137-145) mmol/L Potassium (3.5-5.1) mmol/L Chloride (98-107) mmol/L Carbon Dioxide (22-30) mmol/L Anion Gap mmol/L BUN (9-20) mg/dL Creatinine (0.66-1.25) mg/dL Est GFR (CKD-EPI)AfAm (>60 ml/min/1.73 sqM) Est GFR (CKD-EPI)NonAf (>60 ml/min/1.73 sqM) Glucose (74-99) mg/dL Calcium (8.4-10.2) mg/dL Magnesium (1.6-2.3) mg/dL Total Bilirubin (0.2-1.3) mg/dL AST (17-59) U/L ALT (4-49) U/L Alkaline Phosphatase (38-126) U/L Troponin I 0.020 (0.000-0.034) ng/mL NT-Pro-B Natriuret Pep pg/mL Total Protein (6.3-8.2) g/dL Albumin (3.5-5.0) g/dL Disposition Clinical Impression: Chest pain Disposition: ADMITTED IP TO THIS HOSP Is patient prescribed a controlled substance at d/c from ED?: No Referrals: Justice Nair MD [Primary Care Provider] - 1-2 days Time of Disposition: 14:06
[2024-12-03] MEDS: ASPIRIN 81 MG PO STA (11:44)
[2024-12-03 11:57] LABS: Basophils # (A) 0.05 10*3/uL (0.00-0.10); Basophils % (A) 0.6 %; Eosinophils # (A) 0.07 10*3/uL (0.04-0.35); Eosinophils % (A) 0.8 %; HCT 40.2 % (39.6-50.0); HGB 14.0 g/dL (13.0-17.0); Lymphocytes # (A) 1.98 10*3/uL (0.90-5.00); Lymphocytes % (A) 23.6 %; MCH 31.5 pg (27.0-32.0); MCHC 34.8 g/dL (32.0-37.0); MCV 90.5 fL (80.0-97.0); Monocytes # (A) 0.67 10*3/uL (0.20-1.00); Monocytes % (A) 8.0 %; Neutrophils # (A) 5.59 10*3/uL (1.80-7.70); Neutrophils % (A) 66.8 %; Platelet Count 268 10*3/uL (140-440); RBC 4.44 10*6/uL (4.40-5.60); RDW 13.2 % (11.5-14.5); WBC 8.38 10*3/uL (4.50-10.00)
--- NOTE | 2024-12-03 12:04 | XR ---
EXAMINATION TYPE: XR chest 2V DATE OF EXAM: 12/03/2024 11:59 AM COMPARISON: Chest radiographs from 10/08/2024 TECHNIQUE: XR chest 2V Frontal and lateral views of the chest. CLINICAL INDICATION:Male, 74 years old with history of Chest Pain; FINDINGS: Lungs/Pleura: There is no evidence of pleural effusion, focal consolidation, or pneumothorax. Pulmonary vascularity: Chronic central pulmonary vascular congestion. Heart/mediastinum: Cardiomediastinal silhouette is unremarkable. Atherosclerotic calcifications are seen in the aorta. Two lead cardiac conduction device overlying the right hemithorax with lead tips p rojecting over the right ventricle and right atrium. Musculoskeletal: Multiple level degenerative disc disease changes seen throughout the spine. IMPRESSION: No acute cardiopulmonary disease/process. [facility], , 12/03/2024 12:02 PM
[2024-12-03 12:06] LABS: ALT 23 U/L (4-49); AST 33 U/L (17-59); African American GFR (CKD) >90 (>60 ml/min/1.73 sqM); Albumin 4.4 g/dL (3.5-5.0); Alkaline Phosphatase 72 U/L (38-126); Anion Gap 4 mmol/L; Blood Urea Nitrogen 23 mg/dL (9-20); Calcium 9.6 mg/dL (8.4-10.2); Carbon Dioxide 30 mmol/L (22-30); Chloride 104 mmol/L (98-107); Glucose 115 mg/dL (74-99); Magnesium 2.1 mg/dL (1.6-2.3); Non-African American GFR(CKD) >90 (>60 ml/min/1.73 sqM); Potassium 4.9 mmol/L (3.5-5.1); Sodium 138 mmol/L (137-145); Total Protein 7.6 g/dL (6.3-8.2)
[2024-12-03 12:13] LABS: INR 1.1 (<1.2); Partial Thromboplastin Time 22.3 sec (22.0-30.0); Prothrombin Time 12.1 sec (10.0-12.5)
[2024-12-03 12:15] LABS: NT-Pro-B-Type Natriuretic Pept 763 pg/mL
[2024-12-03] MEDS ORDERED: NITROGLYCERIN SL TABS 0.4 MG TAB SUBLINGUAL PRN (14:07)
[2024-12-03 14:24] VITALS: BP 141/83; PULSE 50
[2024-12-04] MEDS ORDERED: ASPIRIN 325 MG TAB PO SCH (09:00)
== END 2024-12-03 14:16 | disposition other institution (70) ==
LOC: EC 11:25
DX: R07.9 Chest pain, unspecified (principal); R00.1 Bradycardia, unspecified; Z88.8 Allergy status to other drugs, medicaments and biological substances
CPT/HCPCS: 36415; 71046; 80053; 83735; 83880; 84484; 85025; 85379; 85610; 85730; 93005; 99285